=== PATIENT | male | born 1950 | race Caucasian/White ===

== ENCOUNTER 2022-10-17 12:25 | Inpatient (IN) ==
[2022-10-17] MEDS ORDERED: HYDROmorphone INJ 1 MG/ML SYRINGE IV STA (13:09)
[2022-10-17] MEDS ORDERED: KETOROLAC TROMETHAMINE 15 MG/ML VIAL IV STA (13:09)
[2022-10-17] MEDS ORDERED: ONDANSETRON INJ 2 MG/ML 2 ML VIAL IV STA (13:09)
--- NOTE | 2022-10-17 13:12 | Emergency Department Note ---
Impression & Plan Intractable low back pain, Acute right lumbar radiculopathy ED Provider Note CHIEF COMPLAINT: Uncontrolled right-sided low back pain radiating into the right leg x1 week HISTORY OF PRESENT ILLNESS: Patient is a 71-year-old male with past medical history significant for diabetes, dyslipidemia, hypertension, gout, who presents emergency department for the fourth ED visit in 6 days for intractable radicular back pain. Patient states that he he was doing some heavy lifting the weekend after Thanksgiving, which caused his back pain. He was seen in the ED on 10/12, treated with IM Decadron, Toradol and a topical lidocaine patch. No imaging was performed. He was placed on a course of prednisone. He has been using Tylenol and ibuprofen. He came back on 10/14 with persistent symptoms. He was treated with IM narcotics. A CT scan was performed which noted degenerative disc disease at the L4-L5 level which may be contributing to some impingement on the right L4 nerve root. He was discharged with oxycodone. He was back again yesterday, 10/16 with progressively worsening symptoms. He has not improved with Tylenol, ibuprofen, naproxen, prednisone and oxycodone. He is now having to use a walker/cane for ambulation and can barely get around using those. Practitioner tried to get an MRI yesterday but was unable to due to the weekend, and gave the prescription for Valium. Patient was given appointment with Dr. Sequeira with spine surgery but not until 10/26. He is unable to get around at home at all now. He cannot get comfortable in any position. He is able to stand to void. He has not been incontinent of his urine. He has not had a bowel movement in over a week secondary to all of the medications he is taking, but there is been no bowel incontinence. He has diabetic neuropathy in his legs, but can definitely feel a difference in the right foot, states it feels mo re numb and tingly compared to the left. The leg is weak. They called the ambulance today when he could not get around at home. He currently rates his discomfort a 10/10. REVIEW OF SYSTEMS: Review of systems as per HPI. All other systems reviewed were negative. 10 systems reviewed. PMH: Electronic medical records are reviewed and summarized as above/below. See Problem List. SOCIAL HISTORY: Patient lives at home with his spouse. Retired. PHYSICAL EXAM: Vital Signs: Reviewed Nurse's notes. CONSTITUTIONAL: Patient is an uncomfortable appearing 71-year-old male who is awake and alert and sitting upright on the edge of the gurney. is at the bedside. There is significant discomfort with position changes. CARDIOVASCULAR: Regular rate and rhythm. Peripheral pulses easily palpable. RESPIRATORY: Breath sounds equal and clear to auscultation. ABDOMEN: Bowel sounds are present. Abdomen is soft, nontender and nondistended. INTEGUMENTARY: No lesions or rash, normal skin turgor. LYMPH: No lymphadenopathy. SPINE: Examination of the patient's back does not demonstrate any ecchymosis, abrasions or outward signs of trauma. No erythema, increased warmth or induration. Patient has midline discomfort to palpation over the low lumbar spine, primarily on the right. There is no pain over the SI joint or the sciatic notch. He has increased pain with range of motion including rotation and flexion. EXTREMITIES: Leg lengths are symmetrical. Negative logroll bilaterally. He has weakness with hip flexion, knee flexion extension and ankle dorsiflexion and plantarflexion on the right when compared to the left. Right patellar reflex is 1+ compared to 2+ on the left. Distal pulses are easily palpable. Sensation light touch is intact over the lower extremities bilaterally. EMERGENCY DEPARTMENT COURSE: The patient was seen and assessed as above. Old records are reviewed. He presents the emergency department for evaluation of intractable back pain and inability to ambulate. Its been going for him for a week. This is his fourth ED visit. IV lock was initiated. CBC, BMP, urinalysis and COVID swab were collected. He was treated with Toradol, Dilaudid and Zofran and Valium IV. I did order a lumbar spine MRI. Consultation was placed with the [facility] for further care and management. Patient was reassessed when he returned from MRI. He reported he was still having pain, it was primarily from the back to the lateral hip. He was feeling a little bit better, rated his discomfort a 6/10. He was given additional Dilaudid 0.5 mg IV. He is aware that the [facility] service will be coming to admit him. MRI was reviewed. There is discogenic degeneration with spondylitic spurring and facet arthrosis with multilevel neuroforaminal narrowing severe on the right at L4-L5 with some mild central canal stenosis at L3-4. He will be admitted for further work-up and possible surgical evaluation. MEDICAL DECISION MAKING: I do not suspect acute compression syndrome, cauda equina, diskitis, epidural abscess, hematoma or neurovascular compromise. Past Med/Surg History Medical History Diabetes Diabetic polyneuropathy Dyslipidemia Hearing difficulty of both ears Hypertension Sciatica Surgical History [place] teeth removed Family History Mother Diabetes Stroke Sister Diabetes Grandmother (Maternal) Diabetes Father Diabetes Social History Smoking Status: Never smoker Hx Alcohol Use: No Hx Substance Use: No Preferred Language: Armenian Deputy Attorney General Required: No Beliefs That Will Affect Care: None Current Living Situation: Spouse Feels Safe at Home: Yes Allergies Allergies Allergy/AdvReac Type Severity Reaction Status Date / Time No Known Allergies Allergy Unverified 06/25/12 18:00 Home Meds Home Medications Medication Instructions Recorded Confirmed allopurinol 300 mg tablet 300 mg PO DAILY 10/17/22 10/17/22 aspirin 81 mg tablet,delayed 81 mg PO DAILY 10/17/22 10/17/22 release atenolol 50 mg tablet 50 mg PO DAILY 10/17/22 10/17/22 atorvastatin 40 mg tablet 40 mg PO DAILY 10/17/22 10/17/22 empagliflozin 10 mg-linagliptin 5 1 tab PO DAILY 10/17/22 10/17/22 mg tablet (Glyxambi) glipizide 2.5 mg tablet, extended 2.5 mg PO DAILY 10/17/22 10/17/22 release 24 hr losartan 100 mg tablet 100 mg PO DAILY 10/17/22 10/17/22 metformin 1,000 mg tablet 1,000 mg PO BID 10/17/22 10/17/22 nortriptyline 25 mg capsule 25 mg PO HS 10/17/22 10/17/22 pioglitazone 45 mg tablet 45 mg PO DAILY 10/17/22 10/17/22 Previous Rx's Medication Instructions Recorded oxycodone 5 mg tablet 5 mg PO Q4H PRN pain #15 tabs 10/14/22 diazepam 5 mg tablet (Valium) 5 mg PO BID PRN sedation #11 tabs 10/16/22 Results & Data (ED) Vital Signs Vital Signs - 24 hr 10/17/22 12:34 10/17/22 13:30 Temperature 36.9 C Temperature Source Oral Pulse Rate 105 H Respiratory Rate 19 Respiratory Effort / Characteristics Non-Labored Respiratory Depth Normal Blood Pressure 160/103 H Blood Pressure Mean 122 Pulse Oximetry 97 98 Oxygen Delivery Method Room Air Room Air Sepsis Recent Fever Within 48 Hours No Sepsis New/Unexplained Change in Mental Status N/A Sepsis Action Taken by Nursing No Action Required Home Medications Current Medication List: was personally reviewed by me Laboratory Data Attestation: I reviewed the patient's lab results. Result diagrams: 10/17/22 12:57 10/17/22 12:57 Lab Results 10/17/22 10/17/22 10/17/22 Range/Units 12:57 12:57 12:57 WBC 19.27 H (4.8-10.8) K/ul RBC 4.67 (4.63-6.08) M/uL Hgb 14.2 (14.0-18.0) g/dl Hct 43.2 (40.1-51.0) % MCV 92.5 (80.0-100.0) fL MCH 30.4 (25.0-34.0) pg MCHC 32.9 (32.0-36.0) g/dL RDW Std Deviation 47.2 H (36.4-46.3) fL RDW Coeff of Maynor 13.9 (11.5-14.5) % Plt Count 287 (130-400) K/uL MPV 9.1 L (9.4-12.4) fL Immature Gran % (Auto) 0.6 % Neut % (Auto) 77.7 % Lymph % (Auto) 6.2 % [place] % (Auto) 14.8 % Eos % (Auto) 0.5 % Baso % (Auto) 0.2 % Neut # (Auto) 14.96 H (1.4-6.5) K/uL Lymph # (Auto) 1.20 (1.2-3.4) K/uL [place] # (Auto) 2.86 H (0.24-0.82) K/uL Eos # (Auto) 0.10 (0-0.50) K/uL Baso # (Auto) 0.03 (0-0.2) K/uL Immature Gran # (Auto) 0.12 H (0.00-0.02) K/uL Sodium 137 (136-145) mmol/L Potassium 3.5 (3.5-5.1) mmol/L Chloride 101 (98-107) mmol/L Carbon Dioxide 28 (21-32) mmol/L Anion Gap 8 (3-11) BUN 16 (6-23) mg/dl Creatinine 0.82 (0.6-1.4) mg/dl Est Cr Clr Drug Dosing 112.3 ml/min Est GFR ( Amer) 104.6 ml/min Est GFR (Non-Af Amer) 90.2 ml/min BUN/Creatinine Ratio 19.5 (10-20) Glucose 171 H (70-99(Fasting)) mg/dl Calcium 9.2 (8.5-10.1) mg/dl SARS-CoV-2, RNA, NAAT NEGATIVE (NEGATIVE) Administered Medications Acetaminophen (Acetaminophen 500 Mg Tab) 1,000 mg PO Q8 ABDIEL Stop: 11/16/22 15:44 Last Admin: 10/17/22 16:38 Dose: 1,000 mg Documented By: EARL Insulin Aspart (Insulin Aspart Per Unit) 0 units SC [facility] Stop: 11/16/22 16:29 Last Admin: 10/17/22 18:30 Dose: 3 units Documented By: OH Co-signed By: DM Discontinued Medications Diazepam (Diazepam 5 Mg/Ml Inj 10ml Vial) 5 mg IV NOW STA Stop: 10/17/22 13:10 Last Admin: 10/17/22 13:18 Dose: 5 mg Documented By: FLORENCE Hydromorphone HCl (Hydromorphone Inj 1 Mg/Ml Syringe) 1 mg IV NOW STA Stop: 10/17/22 13:10 Last Admin: 10/17/22 13:18 Dose: 1 mg Documented By: FLORENCE Hydromorphone HCl (Hydromorphone Inj 0.5 Mg/0.5 Ml Syr) 0.5 mg IV NOW STA Stop: 10/17/22 14:27 Last Admin: 10/17/22 14:35 Dose: 0.5 mg Documented By: FLORENCE Ketorolac Tromethamine (Ketorolac Tromethamine 15 Mg/Ml Vial) 15 mg IV NOW STA Stop: 10/17/22 13:10 Last Admin: 10/17/22 13:18 Dose: 15 mg Documented By: FLORENCE Ondansetron HCl (Ondansetron Inj 2 Mg/Ml 2 Ml Vial) 4 mg IV NOW STA Stop: 10/17/22 13:10 Last Admin: 10/17/22 13:18 Dose: 4 mg Documented By: FLORENCE Imaging Data Attestation: I personally reviewed and interpreted this imaging study as follows: Radiologist's Impression: Lumbar Spine MRI 10/17/22 13:09 MR lumbar spine wo con CLINICAL HISTORY: 71 years-old Male with RIGHT RADICULAR LOW BACK PAIN X ONE WEE K. Acute on chronic low back pain COMPARISON: CT lumbar spine 10/14/2022 TECHNIQUE: Multiplanar, multi sequence MRI of the lumbar spine was performed without intravenous contrast. FINDINGS: No abdominal aortic aneurysm. The imaged intra-abdominal and paraspinal structures appear unremarkable. No acute fracture, subluxation, endplate erosion or suspicious bony mass lesion identified. Small synovial cysts are noted adjacent to the L4-L5 facets posteriorly. 1.1 cm L1 vertebral body hemangioma. 5 mm anterolisthesis L4 on L5 is likely degenerative. T12-L1: Spondylitic spurring with moderate facet arthrosis. No central canal or neural foraminal stenosis. L1-L2: Mild intervertebral disc space narrowing with spondylitic spurring and small circumferential annular disc bulge. Ligamentum flavum thickening with moderate facet arthrosis. Flattening of the ventral thecal sac results in mild central canal stenosis, AP dimension of the central canal measuring 9 mm. No significant neural foraminal narrowing. L2-L3: Mild to moderate intervertebral disc space narrowing. Spondylitic spurring with small posterior annular disc bulge. Ligamentum flavum thickening with moderate facet arthrosis and trace facet effusions. Flattening of the ventral thecal sac without significant central canal stenosis. Mild bilateral f oraminal narrowing, left greater than right. L3-L4: Mild intervertebral disc space narrowing with spondylitic spurring. Small circumferential annular disc bulge. Ligamentum flavum thickening with moderate facet arthrosis. Mild central canal stenosis, AP dimension of the th ecal sac measuring 9 mm. Mild narrowing of the lateral recesses. Moderate bilateral foraminal stenosis. L4-L5: Grade 1 anterolisthesis, likely degenerative. Posterior annular disc bulge with posterior disc space uncovering. Ligamentum flavum thickening with severe facet arthrosis and facet effusions. Subcentimeter posterior synovial cysts. Flattening of the ventral thecal sac without significant central canal stenosis. Probable right foraminal disc protrusion. There is at least mild narrowing of the lateral recesses. Severe right with moderate to severe left neural foraminal narrowing. L5-S1: Minimal spondylitic spurring with ligamentum thickening and moderate facet arthrosis with subcentimeter posterior synovial cysts. No significant i ntervertebral disc space narrowing. The central canal and neural foramina appear patent. IMPRESSION: 1. No acute fracture or significant bone marrow edema. 2. Discogenic degeneration with spondylitic spurring and facet arthrosis as above. There is multilevel neural foraminal narrowing, severe on the right at L4-L5. 3. Mild central canal stenosis at L3-L4. ACT 112: Negative or not required by law. The above report was generated using voice recognition software. It may contain grammatical, syntax or spelling errors. Electronically signed by: Fran Sanford M.D. 10/17/2022 2:23 PM Discharge Plan Visit Data Chief Complaint: Back Injury/Pain Stated Complaint: BACK PAIN, UNABLE TO AMBULATE ED Provider: Paz [facility] ED Midlevel Provider: Pierce Lanza Discharge Problem: Intractable low back pain, Acute right lumbar radiculopathy Patient Disposition: Admitted As Inpatient Discharge Instructions Interventions: ED Discharge Assessment Last Done: 10/17/22 15:09
[2022-10-17 13:19] LABS: Basophils # (auto) 0.03 K/uL (0-0.2); Basophils % (auto) 0.2 %; Eosinophils % (auto) 0.5 %; Hematocrit (blood only) 43.2 % (40.1-51.0); Hemoglobin 14.2 g/dl (14.0-18.0); Immature Granulocytes # (auto) 0.12 K/uL (0.00-0.02); Immature Granulocytes % (auto) 0.6 %; Lymphocytes % (auto) 6.2 %; Mean Corpuscular Hemoglobin 30.4 pg (25.0-34.0); Mean Corpuscular Hgb Conc 32.9 g/dL (32.0-36.0); Mean Corpuscular Volume 92.5 fL (80.0-100.0); Mean Platelet Volume 9.1 fL (9.4-12.4); Monocytes # (auto) 2.86 K/uL (0.24-0.82); Monocytes % (auto) 14.8 %; Neutrophils # (auto) 14.96 K/uL (1.4-6.5); Neutrophils % (auto) 77.7 %; Platelet Count 287 K/uL (130-400); RDW Coefficient of Variation 13.9 % (11.5-14.5); RDW Standard Deviation 47.2 fL (36.4-46.3); Red Blood Count 4.67 M/uL (4.63-6.08); White Blood Count 19.27 K/ul (4.8-10.8)
[2022-10-17 13:54] LABS: BUN Creatinine Ratio 19.5 (10-20); Calcium 9.2 mg/dl (8.5-10.1); Creatinine Clr Calc Pharmacy 112.3 ml/min; Est GFR (African American) 104.6 ml/min; Est GFR (Non-African American) 90.2 ml/min; Potassium 3.5 mmol/L (3.5-5.1)
--- NOTE | 2022-10-17 14:16 | History & Physical Report ---
Date of Service October 17, 2022 Assessment & Plan (1) Intractable low back pain: Plan: Failed outpatient management with acetaminophen, ibuprofen, lidocaine patche, ice, heat, oxycodone and Valium. Now with inability to complete ADLs or ambulate without severe pain. - Admit for pain control - scheduled acetaminophen, Valium, prn oxycodone - PT/OT consults - Consult ortho spine for additional recommendations - Fall precautions (2) Acute right lumbar radiculopathy: Plan: See plan for #1 (3) Diabetes: Plan: Holding oral agents while admitted. Last A1c in January was 6.3 - Insulin sliding scale and basal insulin while admitted - Diabetic diet - BSG ACHS - Check A1c in AM (4) Hypertension: Plan: - Continue outpatient medications (5) Diabetic polyneuropathy: Plan: - Continue nortriptyline (6) Dyslipidemia: Plan Pt seen and reviewed with collaborating physician, Dr. Cabezas. Plan of care discussed and as outlined above. Code Status: Full code DVT Prophylaxis: SCDs for now Mary Mendenhall PA-C History of Present Illness Chief Complaint: Intractable back pain Primary Care Provider: Beni Reinoso MD This is a 71 y/o male with a PMH of DM2 with associated polyneuropathy, HTN, dyslipidemia, and gout who presented to the ED today for the 4th time in 6 days with worsening right lower back pain with radiation to RLE. Pt has a remote hx of sciatic pain in 1983 when he was in [employer] - admitted and treated with IV Valium with relief. Minimal issues with this since then. Over weekend pt was moving [facility] and home, after which he noted the onset of right lower back pain with radiation to RLE. Seen in the ED on 10/12 for this pain - given course of prednisone for lumbar-sacral radiculopathy. Seen again 10/14/22 for same pain, now interfering with ambulation and ADLs - prescribed oxycodone. CT scan at that visit showed DDD at L4-L5 with possible impingement on L4 nerve root. Seen again 10/16/22 with pain and ambulatory dysfunction - unable to get in for f/u with PCP or with ortho spine. Oxycodone and Motrin helping minimally. Prescribed Valium since that has helped with similar symptoms previously. Returns to the ED today with worsening symptoms, unable to get around at home, even with walker. Outpatient spine surgery evaluation not scheduled until 10/26. Was unable to have MRI done during ED visit yesterday. In the ED today, continued to have 10/10 pain with multiple medications. At present, he just received second dose of Dilaudid - pain still 6-8/10 although seems to improve when he rests/does not try to ambulate. Has also been trying heating pad, ice, and lidocaine patches without relief. No symptoms in left leg. No bowel or bladder incontinence. Pain worse with standing. Difficulty ambulating even with a walker. No numbness or tingling other than chronic neuropathy. Right leg has not given out on him. Also has pain with using right arm to lift himself. Last bowel movement was a week ago - has not taken any laxatives and does not think that he needs them at present. Not eating much due to loss of appetite from pain. Allergies Allergy/AdvReac Type Severity Reaction Status Date / Time No Known Allergies Allergy Unverified 06/25/12 18:00 Home Medications Medication Instructions Recorded Confirmed Type oxycodone 5 mg tablet 5 mg PO Q4H PRN pain #15 tabs 10/14/22 10/17/22 Rx diazepam 5 mg tablet (Valium) 5 mg PO BID PRN sedation #11 tabs 10/16/22 10/17/22 Rx allopurinol 300 mg tablet 300 mg PO DAILY 10/17/22 10/17/22 History aspirin 81 mg tablet,delayed 81 mg PO DAILY 10/17/22 10/17/22 History release atenolol 50 mg tablet 50 mg PO DAILY 10/17/22 10/17/22 History atorvastatin 40 mg tablet 40 mg PO DAILY 10/17/22 10/17/22 History empagliflozin 10 mg-linagliptin 5 1 tab PO DAILY 10/17/22 10/17/22 History mg tablet (Glyxambi) glipizide 2.5 mg tablet, extended 2.5 mg PO DAILY 10/17/22 10/17/22 History release 24 hr losartan 100 mg tablet 100 mg PO DAILY 10/17/22 10/17/22 History metformin 1,000 mg tablet 1,000 mg PO BID 10/17/22 10/17/22 History nortriptyline 25 mg capsule 25 mg PO HS 10/17/22 10/17/22 History pioglitazone 45 mg tablet 45 mg PO DAILY 10/17/22 10/17/22 History Past Med/Surg History Medical History Diabetes Diabetic polyneuropathy Dyslipidemia Hearing difficulty of both ears Hypertension Sciatica Surgical History [place] teeth removed Family History Mother Diabetes Stroke Sister Diabetes Grandmother (Maternal) Diabetes Father Diabetes Social History Smoking Status: Never smoker Hx Alcohol Use: No Hx Substance Use: No Preferred Language: Icelandic [employer] Required: No Beliefs That Will Affect Care: None Current Living Situation: Spouse Feels Safe at Home: Yes Review of Systems Review of Systems: All systems reviewed & are unremarkable except as noted in HPI & below Constitutional: + fatigue; no fever and no chills Eyes: no diplopia Ear, Nose, Mouth, Throat: no nasal congestion, no nasal discharge and no sore throat Respiratory: no cough and no dyspnea Cardiovascular: no chest pain, no palpitations, no syncope and no edema Gastrointestinal: no abdominal pain, no nausea and no vomiting Genitourinary: no dysuria or no urinary incontinence Musculoskeletal: + back pain, + radicular pain and + muscle weakness Integumentary: no yellowing of the skin Neurologic: + loss of sensation (chronic related to neuropathy) and + tingling (chronic neuropathy) Psychiatric: no depression and no anxiety Physical Exam Constitutional: well developed and well nourished; no acute distress and + uncomfortable Eyes: + anicteric sclerae ENMT: external ear and nose normal, oropharynx normal Neck: trachea midline Respiratory: no respiratory distress and no labored breathing Auscultation: lungs clear to auscultation bilaterally; no rales, no rhonchi and no wheezes Cardiovascular: Rate/Rhythm: regular rate and regular rhythm Vessels: posterior tibial pulses present, dorsalis pedis pulses present and radial pulses present Extremities: no pedal edema Gastrointestinal (Abdomen): Inspection/Auscultation: normal bowel sounds; abdomen not distended Percussion/Palpation: abdomen soft Musculoskeletal: decreased strength in right hip flexion and right knee extension - pt reports due to pain. Bilateral knee extension, plantar flexion and dorsiflexion 5/5 and equal. no spinous process tenderness. tenderness of right SI joint and sacral area Skin: no jaundice Neurologic: moves all extremities; not confused 1+ patellar reflex on right, 2+ left patellar and bilateral Achilles reflexes Psychiatric: A+Ox3, euthymic affect Results & Data Results & Data ([facility]) Vital Signs (Past 12 Hours) Vital Signs Temp Pulse Pulse Resp BP BP Pulse Ox 10/17/22 14:07 107 H 20 126/79 96 10/17/22 13:30 98 10/17/22 12:34 36.9 C 105 H 19 160/103 H 97 O2 Del Method 10/17/22 14:07 Room Air 10/17/22 13:30 Room Air 10/17/22 12:34 Room Air Laboratory Results Laboratory Results - last 24 hr 10/17/22 10/17/22 10/17/22 12:57 12:57 12:57 WBC 19.27 H RBC 4.67 Hgb 14.2 Hct 43.2 MCV 92.5 MCH 30.4 MCHC 32.9 RDW Std Deviation 47.2 H RDW Coeff of Maynor 13.9 Plt Count 287 MPV 9.1 L Immature Gran % (Auto) 0.6 Neut % (Auto) 77.7 Lymph % (Auto) 6.2 [place] % (Auto) 14.8 Eos % (Auto) 0.5 Baso % (Auto) 0.2 Neut # (Auto) 14.96 H Lymph # (Auto) 1.20 [place] # (Auto) 2.86 H Eos # (Auto) 0.10 Baso # (Auto) 0.03 Immature Gran # (Auto) 0.12 H Sodium 137 Potassium 3.5 Chloride 101 Carbon Dioxide 28 Anion Gap 8 BUN 16 Creatinine 0.82 Est Cr Clr Drug Dosing 112.3 Est GFR ( Amer) 104.6 Est GFR (Non-Af Amer) 90.2 BUN/Creatinine Ratio 19.5 Glucose 171 H Calcium 9.2 SARS-CoV-2, RNA, NAAT NEGATIVE Diagnostic Findings Lumbar MRI 10/17/22 - IMPRESSION:1. No acute fracture or significant bone marrow edema. 2. Discogenic degeneration with spondylitic spurring and facet arthrosis as above. There is multilevel neural foraminal narrowing, severe on the right at L4-L5. 3. Mild central canal stenosis at L3-L4. Lumbar CT 10/14/22 - IMPRESSION: 1. No acute bony abnormality is seen involving the lumbar spine. 2. Degenerative disc disease at L4-L5 as above. This may impinge on the exiting right L4 nerve root. See discussion. Medications Administered Discontinued Medications Diazepam (Diazepam 5 Mg/Ml Inj 10ml Vial) 5 mg IV NOW STA Stop: 10/17/22 13:10 Last Admin: 10/17/22 13:18 Dose: 5 mg Documented By: FLORENCE Hydromorphone HCl (Hydromorphone Inj 1 Mg/Ml Syringe) 1 mg IV NOW STA Stop: 10/17/22 13:10 Last Admin: 10/17/22 13:18 Dose: 1 mg Documented By: FLORENCE Ketorolac Tromethamine (Ketorolac Tromethamine 15 Mg/Ml Vial) 15 mg IV NOW STA Stop: 10/17/22 13:10 Last Admin: 10/17/22 13:18 Dose: 15 mg Documented By: FLORENCE Ondansetron HCl (Ondansetron Inj 2 Mg/Ml 2 Ml Vial) 4 mg IV NOW STA Stop: 10/17/22 13:10 Last Admin: 10/17/22 13:18 Dose: 4 mg Documented By: FLORENCE Supervising Physician Co-Signing Physician Notes I have seen and examined the patient and have discussed the case with the provider above. I agree with the assessment and plan as stated. 71 yo M with persistent right lower back pain with intermittent sciatic pain that is severe and radiating to the right toe. Difficulty walking or even moving in the past few days despite multiple conservative therapies. Lumbar MRI reveals disc degeneration with facet arthrosis and multilevel neuroforaminal narrowing, severe on the right at the L4-5 nerve root. SLR test is positive on the right. Has some numbness in his feet which is chronic but otherwise knee reflexes are 2+ bilaterally, strength and sensation is intact in lower extremities. He has paraspinal tenderness and increased turgor of the tissues in the right lumbar and gluteal region. Agree with plan to control pain and symptoms and consult ortho spine for recommendations on managing disc disease. Although NSAIDs are helpful will avoid these for possible upcoming procedure. Cont valium for muscle relaxation and PRN dilaudid for breakthrough pain. Scheduled Tylenol ordered. DO Raulito
--- NOTE | 2022-10-17 14:24 | Magnetic Resonance Report ---
MR lumbar spine wo con CLINICAL HISTORY: 71 years-old Male with RIGHT RADICULAR LOW BACK PAIN X ONE WEEK. Acute on chronic low back pain COMPARISON: CT lumbar spine 10/14/2022 TECHNIQUE: Multiplanar, multi sequence MRI of the lumbar spine was performed without intravenous cont rast. FINDINGS: No abdominal aortic aneurysm. The imaged intra-abdominal and paraspinal structures appear unremarkabl e. No acute fracture, subluxation, endplate erosion or suspicious bony mass lesion identified. Small synovial cysts are noted adjacent to the L4-L5 facets posteriorly. 1.1 cm L1 vertebral body hemangiom a. 5 mm anterolisthesis L4 on L5 is likely degenerative. T12-L1: Spondylitic spurring with moderate facet arthrosis. No central canal or neural foraminal derick nosis. L1-L2: Mild intervertebral disc space narrowing with spondylitic spurring and small circumferential annular disc bulge. Ligamentum flavum thickening with moderate facet arthrosis. Flattening of the herve tral thecal sac results in mild central canal stenosis, AP dimension of the central canal measuring 9 mm. No significant neural foraminal narrowing. L2-L3: Mild to moderate intervertebral disc space narrowing. Spondylitic spurring with small posteri or annular disc bulge. Ligamentum flavum thickening with moderate facet arthrosis and trace facet eff usions. Flattening of the ventral thecal sac without significant central canal stenosis. Mild bilater al foraminal narrowing, left greater than right. L3-L4: Mild intervertebral disc space narrowing with spondylitic spurring. Small circumferential claudia ular disc bulge. Ligamentum flavum thickening with moderate facet arthrosis. Mild central canal steno sis, AP dimension of the thecal sac measuring 9 mm. Mild narrowing of the lateral recesses. Moderate bilateral foraminal stenosis. L4-L5: Grade 1 anterolisthesis, likely degenerative. Posterior annular disc bulge with posterior dis c space uncovering. Ligamentum flavum thickening with severe facet arthrosis and facet effusions. Sub centimeter posterior synovial cysts. Flattening of the ventral thecal sac without significant central canal stenosis. Probable right foraminal disc protrusion. There is at least mild narrowing of the la teral recesses. Severe right with moderate to severe left neural foraminal narrowing. L5-S1: Minimal spondylitic spurring with ligamentum thickening and moderate facet arthrosis with sub centimeter posterior synovial cysts. No significant intervertebral disc space narrowing. The central canal and neural foramina appear patent. IMPRESSION: 1. No acute fracture or significant bone marrow edema. 2. Discogenic degeneration with spondylitic spurring and facet arthrosis as above. There is multileve l neural foraminal narrowing, severe on the right at L4-L5. 3. Mild central canal stenosis at L3-L4. ACT 112: Negative or not required by law. The above report was generated using voice recognition software. It may contain grammatical, syntax o r spelling errors. Electronically signed by: Fran Sanford M.D. 10/17/2022 2:23 PM
[2022-10-17] MEDS ORDERED: HYDROmorphone INJ 0.5 MG/0.5 ML SYR IV STA (14:26)
[2022-10-17] MEDS ORDERED: GLUCOSE 40% GEL 15 GM TUBE PO PRN (15:47)
[2022-10-17] MEDS ORDERED: CARBOHYDRATES FOR HYPOGLYCEMIA PO PRN (15:47)
[2022-10-17] MEDS ORDERED: GLUCOSE 10 TAB/TUBE PO PRN (15:47)
[2022-10-17] MEDS ORDERED: GLUCAGON FOR INJ 1 MG VIAL SQ PRN (15:47)
[2022-10-17] MEDS ORDERED: DEXTROSE 50% 50 ML SYRINGE IV PRN (15:47)
[2022-10-17] MEDS: ACETAMINOPHEN 500 MG TAB PO SCH ×2 (16:38→22:12)
[2022-10-17] MEDS: INSULIN ASPART PER UNIT SC SCH ×2 (18:30→21:10)
[2022-10-17 20:07] LABS: Appearance Urine Clear (Clear); Bacteria Urine Automated Negative (Negative); Bilirubin Urine Negative (Negative); Blood Urine Negative (Negative); Color Urine Yellow; Glucose Urine UA 3+ (Negative); Ketones Urine Trace (Negative); Leukocyte Esterase Urine Negative (Negative); Nitrite Urine Negative (Negative); Protein Urine 1+ (Negative); RBC Urine Automated 0-4 /hpf (0-4); Specific Gravity Urine 1.043 (1.000-1.030); Urobilinogen Urine Negative (Negative)
[2022-10-17] MEDS: diazePAM 5 MG TABLET PO SCH (21:08)
[2022-10-17] MEDS: HYDROmorphone INJ 0.5 MG/0.5 ML SYR IV PRN (21:08)
[2022-10-17] MEDS: LANTUS PER UNIT CHARGE SQ SCH (21:09)
[2022-10-17] MEDS: NORTRIPTYLINE HCL 25 MG CAP PO SCH (22:11)
[2022-10-18] MEDS: oxyCODONE HCL IR 5 MG TAB (IMMEDIATE RELEASE) PO PRN ×4 (00:15→18:11)
[2022-10-18] MEDS: ACETAMINOPHEN 500 MG TAB PO SCH ×3 (05:04→21:51)
[2022-10-18] MEDS: HYDROmorphone INJ 0.5 MG/0.5 ML SYR IV PRN ×2 (05:05→11:25)
[2022-10-18 08:10] LABS: Basophils # (auto) 0.04 K/uL (0-0.2); Basophils % (auto) 0.2 %; Eosinophils # (auto) 0.32 K/uL (0-0.50); Hematocrit (blood only) 37.9 % (40.1-51.0); Hemoglobin 12.5 g/dl (14.0-18.0); Immature Granulocytes # (auto) 0.15 K/uL (0.00-0.02); Immature Granulocytes % (auto) 0.9 %; Lymphocytes # (auto) 1.45 K/uL (1.2-3.4); Mean Corpuscular Hemoglobin 30.3 pg (25.0-34.0); Monocytes # (auto) 1.88 K/uL (0.24-0.82); Monocytes % (auto) 11.7 %; Neutrophils # (auto) 12.24 K/uL (1.4-6.5); Neutrophils % (auto) 76.2 %; Platelet Count 215 K/uL (130-400); RDW Coefficient of Variation 13.8 % (11.5-14.5); Red Blood Count 4.12 M/uL (4.63-6.08); White Blood Count 16.08 K/ul (4.8-10.8)
[2022-10-18] MEDS: allopurinoL 300 MG TAB PO SCH (08:27)
[2022-10-18] MEDS: ATENOLOL 50 MG TABLET PO SCH (08:27)
[2022-10-18] MEDS: ATORVASTATIN 40 MG TAB PO SCH (08:27)
[2022-10-18] MEDS: LOSARTAN POTASSIUM 50 MG TAB PO SCH (08:27)
[2022-10-18] MEDS: diazePAM 5 MG TABLET PO SCH ×3 (08:30→21:49)
[2022-10-18 09:04] LABS: BUN Creatinine Ratio 17.8 (10-20); Calcium 8.6 mg/dl (8.5-10.1); Creatinine Clr Calc Pharmacy 125.7 ml/min; Est GFR (African American) 109.7 ml/min; Est GFR (Non-African American) 94.6 ml/min; Potassium 3.7 mmol/L (3.5-5.1)
[2022-10-18] MEDS: INSULIN ASPART PER UNIT SC SCH ×4 (09:07→21:48)
[2022-10-18] MEDS: LANTUS PER UNIT CHARGE SQ SCH ×2 (09:13→21:48)
--- NOTE | 2022-10-18 12:52 | Orthopedic Consultation ---
Date of Consultation October 18, 2022 Assessment & Plan (1) Acute right lumbar radiculopathy: Assessment lumbar spinal stenosis with spondylolisthesis L4-5 and foraminal disc herniation on the right. Plan at this time would like discussion today with the patient review his MRI findings and clinical presentation. He has evidence of a spondylolisthesis L4-5 with marked facet hypertrophy and pre-existing spinal stenosis. On top of this he has a large foraminal disc herniation encroaching the exiting L4 nerve root on the right. This is consistent with his clinical presentation pain patterns. At this time he is trialed medications in significant discomfort. We discussed possible trial of epidural injections. He has declined. He prefer surgical invention. He would be extensive in nature requiring complete facetectomy L4-5 on the right adequately and safely approach the nerve root and disc herniation. He would require fusion at this level to address the instability. Responders was consulted as well in detail. At this time the position will be made n.p.o. after midnight we will hope for surgery tomorrow. History of Present Illness Reason for Consultation: Back and right leg pain Attending Physician: David Manzano MD History of Present Illness This is a 71-year-old male who presents with severe back and right leg pain. This been going on for a week. He denies any specific trauma fall or event. He states his pain radiates into the right buttock posterior thigh into his foot. It is markedly limiting his ability to stand and ambulate. He can only sit in an upright position to obtain any relief. He denies any loss of bowel or bladder control. Does need a walker to ambulate secondary to leg weakness and giving way. Left lower extremities asymptomatic. Is requiring IV narcotics to obtain any relief. Allergies Allergy/AdvReac Type Severity Reaction Status Date / Time No Known Allergies Allergy Unverified 06/25/12 18:00 Home Medications Medication Instructions Recorded Confirmed Type oxycodone 5 mg tablet 5 mg PO Q4H PRN pain #15 tabs 10/14/22 10/17/22 Rx diazepam 5 mg tablet (Valium) 5 mg PO BID PRN sedation #11 tabs 10/16/22 10/17/22 Rx allopurinol 300 mg tablet 300 mg PO DAILY 10/17/22 10/17/22 History aspirin 81 mg tablet,delayed 81 mg PO DAILY 10/17/22 10/17/22 History release atenolol 50 mg tablet 50 mg PO DAILY 10/17/22 10/17/22 History atorvastatin 40 mg tablet 40 mg PO DAILY 10/17/22 10/17/22 History empagliflozin 10 mg-linagliptin 5 1 tab PO DAILY 10/17/22 10/17/22 History mg tablet (Glyxambi) glipizide 2.5 mg tablet, extended 2.5 mg PO DAILY 10/17/22 10/17/22 History release 24 hr losartan 100 mg tablet 100 mg PO DAILY 10/17/22 10/17/22 History metformin 1,000 mg tablet 1,000 mg PO BID 10/17/22 10/17/22 History nortriptyline 25 mg capsule 25 mg PO HS 10/17/22 10/17/22 History pioglitazone 45 mg tablet 45 mg PO DAILY 10/17/22 10/17/22 History Patient History Medical History Diabetes Diabetic polyneuropathy Dyslipidemia Hearing difficulty of both ears Hypertension Sciatica Surgical History Naylor teeth removed Family History Mother Diabetes Stroke Sister Diabetes Grandmother (Maternal) Diabetes Father Diabetes Social History Smoking Status: Never smoker Hx Alcohol Use: No Hx Substance Use: No Preferred Language: Kiswahili Communication Ability: Effective Neon Molder Required: No Beliefs That Will Affect Care: None marital status: Current Living Situation: Spouse How many Children do You have: 1 Feels Safe at Home: Yes Assistive Devices: Cane and Walker Assistive Devices Comment: rollator Physical Exam Physical Exam: On exam he is most comfortable sitting beside the bed. He demonstrates plus 5 out of 5 left dorsiflexion plantarflexion quadriceps on the right he has a 4/5 right dorsiflexion 5/5 plantarflexion quadriceps of breakaway weakness. He has significant tension signs with straight leg raising on the right with negative signs on the left. D10 reflexes absent. He is able to stand and ambulate with his walker but leans on his left leg. Any weightbearing to right lower extremity reproduces severe radiculopathy. He is quite uncomfortable during exam. Results & Data ([facility]) Vital Signs (Past 12 Hours) Vital Signs Temp Pulse Resp BP Pulse Ox O2 Del Method 10/18/22 07:06 36.6 C 86 16 150/67 H 99 Room Air
[2022-10-18] MEDS ORDERED: POLYETHYLENE (MIRALAX) 17 GM PACK PO PRN (14:44)
[2022-10-18] MEDS: DOCUSATE SODIUM 100 MG CAP PO SCH ×2 (15:08→21:49)
--- NOTE | 2022-10-18 17:09 | Hospitalist Progress Note ---
Date of Service October 18, 2022 Assessment & Plan (1) Intractable low back pain: Plan: Acute right lumbar radiculopathy Lumbar spinal stenosis with spondylolisthesis L4-L5 and foraminal disc herniation on the right Ambulatory dysfunction Failed outpatient management --Lumbar MRI:No acute fracture or significant bone marrow edema. Discogenic degeneration with spondylitic spurring and facet arthrosis as above. There is multilevel neural foraminal narrowing, severe on the right at L4-L5. Mild central canal stenosis at L3-L4. -- Appreciate orthopedics input Plan for L4-L5 decompression fusion surgery tomorrow N.p.o. after midnight Pain control Fall precautions PT OT as able Constipation Started on bowel regimen (2) Acute right lumbar radiculopathy: Plan: As above (3) Diabetes: Plan: Holding oral agents Last HbA1C: 6.3 Insulin sliding scale and basal insulin while hospitalized Monitor BGs (4) Hypertension: Plan: - Continue home medications (5) Diabetic polyneuropathy: Plan: - Continue nortriptyline (6) Dyslipidemia: Plan: On statin Plan DVT Px: SCDs for now Code Status: Full code Disposition PT OT prior to discharge Admission and Anticipated Discharge Date Admission Date: October 17, 2022 Subjective Patient is seen and examined at bedside States having Right lower back pain radiating down right lower extremity Back pain worsens with activity Reports constipation Denies any chest pain, dyspnea, dizziness, nausea, abdominal pain Chronic bilateral lower extremity neuropathy which he attributes to diabetes No other complaints Review of Systems Review of Systems: All systems reviewed & are unremarkable except as noted in Subjective Physical Exam Physical Exam: Physical Exam: Vitals signs as noted above General Appearance:Moderately built and nourished, no apparent distress Head: normocephalic, Atraumatic Eyes: normal inspection, EOMI Neck: supple, Trachea midline Respiratory/Chest: Normal breath sounds, CTA, No accessory muscle use Cardiovascular: S1, S2, No murmur Abdomen/GI:Soft, Non tender, Bowel sounds present Back: Left lower back hanger, + straight leg raise test Extremities/Musculoskeletal:normal inspection, no edema Neurologic/Psych:AAOX3, grossly no focal neurological deficits Skin: normal color, warm Results & Data Results & Data ([place]) Vital Signs (Past 12 Hours) Vital Signs Temp Pulse Resp BP BP Pulse Ox O2 Del Method 10/18/22 14:39 36.5 C 83 16 94/55 L 98 Room Air 10/18/22 07:06 36.6 C 86 16 150/67 H 99 Room Air Laboratory Results Short CBC 10/18/22 Range/Units 07:39 WBC 16.08 H (4.8-10.8) K/ul Hgb 12.5 L (14.0-18.0) g/dl Hct 37.9 L (40.1-51.0) % Plt Count 215 (130-400) K/uL BMP 10/18/22 07:39 Sodium 137 Potassium 3.7 Chloride 102 Carbon Dioxide 30 BUN 13 Creatinine 0.73 Glucose 131 H Calcium 8.6 Urine 10/17/22 Range/Units 19:30 Urine Color Yellow Urine Appearance Clear (Clear) Urine pH 5.0 (4.5-7.5) Ur Specific [place] 1.043 H (1.000-1.030) Urine Protein 1+ H (Negative) Urine Glucose (UA) 3+ H (Negative)
[2022-10-18] MEDS: NORTRIPTYLINE HCL 25 MG CAP PO SCH (21:50)
[2022-10-18] MEDS ORDERED: Nursing to Pharmacy Communication SCH (23:45)
[2022-10-19] MEDS: INSULIN ASPART PER UNIT SC SCH ×5 (01:16→21:24)
[2022-10-19] MEDS: oxyCODONE HCL IR 5 MG TAB (IMMEDIATE RELEASE) PO PRN ×4 (01:21→23:23)
[2022-10-19] MEDS: ACETAMINOPHEN 500 MG TAB PO SCH ×3 (06:01→21:24)
[2022-10-19] MEDS: ATENOLOL 50 MG TABLET PO SCH (08:36)
[2022-10-19] MEDS: allopurinoL 300 MG TAB PO SCH (08:36)
[2022-10-19] MEDS: LOSARTAN POTASSIUM 50 MG TAB PO SCH (08:36)
[2022-10-19] MEDS: ATORVASTATIN 40 MG TAB PO SCH (08:36)
[2022-10-19] MEDS: DOCUSATE SODIUM 100 MG CAP PO SCH ×2 (08:40→21:23)
[2022-10-19] MEDS: diazePAM 5 MG TABLET PO SCH ×3 (08:40→21:24)
[2022-10-19] MEDS: LANTUS PER UNIT CHARGE SQ SCH ×2 (09:35→21:23)
[2022-10-19 09:38] LABS: Hematocrit (blood only) 38.6 % (40.1-51.0); Hemoglobin 12.7 g/dl (14.0-18.0); Mean Corpuscular Hemoglobin 30.2 pg (25.0-34.0); Mean Corpuscular Hgb Conc 32.9 g/dL (32.0-36.0); Mean Corpuscular Volume 91.9 fL (80.0-100.0); Mean Platelet Volume 9.3 fL (9.4-12.4); Platelet Count 249 K/uL (130-400); RDW Coefficient of Variation 13.7 % (11.5-14.5); RDW Standard Deviation 46.4 fL (36.4-46.3); White Blood Count 15.29 K/ul (4.8-10.8)
[2022-10-19 10:20] LABS: Anion Gap 6 (3-11); BUN Creatinine Ratio 15.6 (10-20); Blood Urea Nitrogen 12 mg/dl (6-23); Carbon Dioxide 29 mmol/L (21-32); Chloride 102 mmol/L (98-107); Creatinine Clr Calc Pharmacy 119.2 ml/min; Est GFR (African American) 107.3 ml/min; Est GFR (Non-African American) 92.6 ml/min; Glucose 133 mg/dl (70-99(Fasting)); Sodium 137 mmol/L (136-145)
[2022-10-19] MEDS: HYDROmorphone INJ 0.5 MG/0.5 ML SYR IV PRN ×3 (10:52→21:25)
--- NOTE | 2022-10-19 12:07 | Hospitalist Progress Note ---
Date of Service October 19, 2022 Assessment & Plan (1) Intractable low back pain: Plan: Acute right lumbar radiculopathy Lumbar spinal stenosis with spondylolisthesis L4-L5 and foraminal disc herniation on the right Ambulatory dysfunction Failed outpatient management --Lumbar MRI:No acute fracture or significant bone marrow edema. Discogenic degeneration with spondylitic spurring and facet arthrosis as above. There is multilevel neural foraminal narrowing, severe on the right at L4-L5. Mild central canal stenosis at L3-L4. -- Appreciate orthopedics input Plan for L4-L5 decompression fusion surgery 10/19/2022 N.p.o. for hopeful surgery today 10/19/2022 Pain control Fall precautions PT OT as able Constipation Started on bowel regimen (2) Acute right lumbar radiculopathy: Plan: As above (3) Diabetes: Plan: Holding oral agents Last HbA1C: 6.3 Insulin sliding scale and basal insulin while hospitalized Monitor BGs (4) Hypertension: Plan: - Continue home medications (5) Diabetic polyneuropathy: Plan: - Continue nortriptyline (6) Dyslipidemia: Plan: On statin Plan DVT Px: SCDs for now Code Status: Full code Disposition PT OT prior to discharge Admission and Anticipated Discharge Date Admission Date: October 17, 2022 Subjective Patient with DM, HTN, HLD, lumbar spinal stenosis with spondylolisthesis L4-L% and foraminal disc herniation on right admitted for laminectomy and fusion with orthopedic surgery. Patient reports back pain this morning that is unchanged with weakness in right leg as well as significant pain with movement. Denies bowel or bladder incontinence. Denies chest pain, shortness of breath, n/v/d, abdominal pain, dysuria. Review of Systems Review of Systems: All systems reviewed & are unremarkable except as noted in Subjective Physical Exam Physical Exam: General Appearance:Moderately built and nourished, no apparent distress Head: normocephalic, Atraumatic Eyes: normal inspection, EOMI Neck: supple, Trachea midline Respiratory/Chest: Normal breath sounds, CTA, No accessory muscle use Cardiovascular: S1, S2, No murmur Abdomen/GI:Soft, Non tender, Bowel sounds present Back: Left lower storage and backup administrator, + straight leg raise test Extremities/Musculoskeletal:normal inspection, no edema Neurologic/Psych:AAOX3, grossly no focal neurological deficits Skin: normal color, warm Results & Data Results & Data ([place]) Vital Signs (Past 12 Hours) Vital Signs Temp Pulse Resp BP BP Pulse Ox O2 Del Method 10/19/22 08:35 78 143/80 H 98 Room Air 10/19/22 07:29 36.4 C L 78 16 121/70 94 Room Air Diagnostic Findings Laboratory Results WBC 15.29 K/ul (4.8-10.8) H 10/19/22 09:00 RBC 4.20 M/uL (4.63-6.08) L 10/19/22 09:00 Hgb 12.7 g/dl (14.0-18.0) L 10/19/22 09:00 Hct 38.6 % (40.1-51.0) L 10/19/22 09:00 MCV 91.9 fL (80.0-100.0) 10/19/22 09:00 MCH 30.2 pg (25.0-34.0) 10/19/22 09:00 MCHC 32.9 g/dL (32.0-36.0) 10/19/22 09:00 RDW Std Deviation 46.4 fL (36.4-46.3) H 10/19/22 09:00 RDW Coeff of [place]nor 13.7 % (11.5-14.5) 10/19/22 09:00 Plt Count 249 K/uL (130-400) 10/19/22 09:00 MPV 9.3 fL (9.4-12.4) L 10/19/22 09:00 Immature Gran % (Auto) 0.9 % 10/18/22 07:39 Neut % (Auto) 76.2 % 10/18/22 07:39 Lymph % (Auto) 9.0 % 10/18/22 07:39 [place] % (Auto) 11.7 % 10/18/22 07:39 Eos % (Auto) 2.0 % 10/18/22 07:39 Baso % (Auto) 0.2 % 10/18/22 07:39 Neut # (Auto) 12.24 K/uL (1.4-6.5) H 10/18/22 07:39 Lymph # (Auto) 1.45 K/uL (1.2-3.4) 10/18/22 07:39 [place] # (Auto) 1.88 K/uL (0.24-0.82) H 10/18/22 07:39 Eos # (Auto) 0.32 K/uL (0-0.50) 10/18/22 07:39 Baso # (Auto) 0.04 K/uL (0-0.2) 10/18/22 07:39 Immature Gran # (Auto) 0.15 K/uL (0.00-0.02) H 10/18/22 07:39 Sodium 137 mmol/L (136-145) 10/19/22 09:00 Potassium 3.6 mmol/L (3.5-5.1) 10/19/22 10:45 Chloride 102 mmol/L (98-107) 10/19/22 09:00 Carbon Dioxide 29 mmol/L (21-32) 10/19/22 09:00 Anion Gap 6 (3-11) 10/19/22 09:00 BUN 12 mg/dl (6-23) 10/19/22 09:00 Creatinine 0.77 mg/dl (0.6-1.4) 10/19/22 09:00 Est Cr Clr Drug Dosing 119.2 ml/min 10/19/22 09:00 Est GFR ( Amer) 107.3 ml/min 10/19/22 09:00 Est GFR (Non-Af Amer) 92.6 ml/min 10/19/22 09:00 BUN/Creatinine Ratio 15.6 (10-20) 10/19/22 09:00 Glucose 133 mg/dl (70-99(Fasting)) H 10/19/22 09:00 POC Glucose 140 mg/dl (70-99) H 10/19/22 11:55 Calcium 9.0 mg/dl (8.5-10.1) 10/19/22 09:00 Magnesium 2.0 mg/dl (1.7-2.4) 10/19/22 09:00 Urine Color Yellow 10/17/22 19:30 Urine Appearance Clear (Clear) 10/17/22 19:30 Urine pH 5.0 (4.5-7.5) 10/17/22 19:30 Ur Specific [place] 1.043 (1.000-1.030) H 10/17/22 19:30 Urine Protein 1+ (Negative) H 12/05/22 19:30 Urine Glucose (UA) 3+ (Negative) H 10/17/22 19:30 Urine Ketones Trace (Negative) H 10/17/22 19:30 Urine Blood Negative (Negative) 10/17/22 19:30 Urine Nitrite Negative (Negative) 10/17/22 19:30 Urine Bilirubin Negative (Negative) 10/17/22 19:30 Urine Urobilinogen Negative (Negative) 10/17/22 19:30 Ur Leukocyte Esterase Negative (Negative) 10/17/22 19:30 Urine WBC (Auto) 1-5 /hpf (0-5) 10/17/22 19:30 Urine RBC (Auto) 0-4 /hpf (0-4) 10/17/22 19:30 U Hyaline Cast (Auto) 1-5 /lpf (0-5) 10/17/22 19:30 U Epithel Cells (Auto) 5-10 /lpf (0-5) H 10/17/22 19:30 Urine Bacteria (Auto) Negative (Negative) 10/17/22 19:30 SARS-CoV-2, RNA, NAAT NEGATIVE (NEGATIVE) 10/17/22 12:57 Blood Type O Negative 10/19/22 09:00 Antibody Screen NEGATIVE 10/19/22 09:00 Impressions Lumbar Spine MRI 10/17/22 13:09 MR lumbar spine wo con CLINICAL HISTORY: 71 years-old Male with RIGHT RADICULAR LOW BACK PAIN X ONE WEEK. Acute on chronic low back pain COMPARISON: CT lumbar spine 10/14/2022 TECHNIQUE: Multiplanar, multi sequence MRI of the lumbar spine was performed without intravenous contrast. FINDINGS: No abdominal aortic aneurysm. The imaged intra-abdominal and paraspinal structures appear unremarkable. No acute fracture, subluxation, endplate erosion or suspicious bony mass lesion identified. Small synovial cysts are noted adjacent to the L4-L5 facets posteriorly. 1.1 cm L1 vertebral body hemangioma. 5 mm anterolisthesis L4 on L5 is likely degenerative. T12-L1: Spondylitic spurring with moderate facet arthrosis. No central canal or neural foraminal stenosis. L1-L2: Mild intervertebral disc space narrowing with spondylitic spurring and small circumferential annular disc bulge. Ligamentum flavum thickening with moderate facet arthrosis. Flattening of the ventral thecal sac results in mild central canal stenosis, AP dimension of the central canal measuring 9 mm. No significant neural foraminal narrowing. L2-L3: Mild to moderate intervertebral disc space narrowing. Spondylitic spurring with small posterior annular disc bulge. Ligamentum flavum thickening with moderate facet arthrosis and trace facet effusions. Flattening of the ventral thecal sac without significant central canal stenosis. Mild bilateral foraminal narrowing, left greater than right. L3-L4: Mild intervertebral disc space narrowing with spondylitic spurring. Small circumferential annular disc bulge. Ligamentum flavum thickening with moderate facet arthrosis. Mild central canal stenosis, AP dimension of the thecal sac measuring 9 mm. Mild narrowing of the lateral recesses. Moderate bilateral foraminal stenosis. L4-L5: Grade 1 anterolisthesis, likely degenerative. Posterior annular disc bulge with posterior disc space uncovering. Ligamentum flavum thickening with severe facet arthrosis and facet effusions. Subcentimeter posterior synovial cysts. Flattening of the ventral thecal sac without significant central canal stenosis. Probable right foraminal disc protrusion. There is at least mild narrowing of the lateral recesses. Severe right with moderate to severe left neural foraminal narrowing. L5-S1: Minimal spondylitic spurring with ligamentum thickening and moderate facet arthrosis with subcentimeter posterior synovial cysts. No significant i ntervertebral disc space narrowing. The central canal and neural foramina appear patent. IMPRESSION: 1. No acute fracture or significant bone marrow edema. 2. Discogenic degeneration with spondylitic spurring and facet arthrosis as above. There is multilevel neural foraminal narrowing, severe on the right at L4-L5. 3. Mild central canal stenosis at L3-L4. ACT 112: Negative or not required by law. The above report was generated using voice recognition software. It may contain grammatical, syntax or spelling errors. Electronically signed by: Fran Sanford M.D. 10/17/2022 2:23 PM Medications Administered Current Inpatient Medications Acetaminophen (Acetaminophen 500 Mg Tab) 1,000 mg PO Q8 [facility] Stop: 11/16/22 15:44 Last Admin: 10/19/22 06:01 Dose: 1,000 mg Allopurinol (Allopurinol 300 Mg Tab) 300 mg PO DAILY [facility] Stop: 11/17/22 08:59 Last Admin: 10/19/22 08:36 Dose: 300 mg Atenolol (Atenolol 50 Mg Tablet) 50 mg PO DAILY [facility] Stop: 11/17/22 08:59 Last Admin: 10/19/22 08:36 Dose: 50 mg Atorvastatin Calcium (Atorvastatin 40 Mg Tab) 40 mg PO DAILY [facility] Stop: 11/17/22 08:59 Last Admin: 10/19/22 08:36 Dose: 40 mg Dextrose (Dextrose 50% 50 Ml Syringe) 25 - 50 ml IV UD PRN; Protocol PRN Reason: Hypoglycemia Protocol Stop: 11/16/22 15:46 Diazepam (Diazepam 5 Mg Tablet) 5 mg PO TID [facility] Stop: 11/16/22 20:59 Last Admin: 10/19/22 08:40 Dose: 5 mg Docusate Sodium (Docusate Sodium 100 Mg Cap) 100 mg PO BID [facility] Stop: 11/17/22 14:44 Last Admin: 10/19/22 08:40 Dose: 100 mg Glucagon (Glucagon For Inj 1 Mg Vial) 1 mg SQ UD PRN; Protocol PRN Reason: Hypoglycemia Protocol Stop: 11/16/22 15:46 Glucose (Glucose 40% Gel 15 Gm Tube) 15 - 30 gm PO UD PRN; Protocol PRN Reason: Hypoglycemia Protocol Stop: 11/16/22 15:46 Glucose (Glucose 10 Tab/Tube) 4 - 8 tab PO UD PRN; Protocol PRN Reason: Hypoglycemia Treatment Stop: 11/16/22 15:46 Hydromorphone HCl (Hydromorphone Inj 0.5 Mg/0.5 Ml Syr) 0.5 mg IV Q4H PRN PRN Reason: severe pain (7-10) Stop: 10/31/22 15:45 Last Admin: 10/19/22 10:52 Dose: 0.5 mg Insulin Aspart (Insulin Aspart Per Unit) 0 units SC Q6 [facility] Stop: 11/18/22 00:00 Last Admin: 10/19/22 12:00 Dose: Not Given Insulin Glargine (Lantus Per Unit Charge) 15 units SQ BID [facility] Stop: 11/16/22 20:59 Last Admin: 10/19/22 09:35 Dose: Not Given Losartan Potassium (Losartan Potassium 50 Mg Tab) 100 mg PO DAILY [facility] Stop: 11/17/22 08:59 Last Admin: 10/19/22 08:36 Dose: 100 mg Miscellaneous (Carbohydrates For Hypoglycemia ) 15 - 30 gm PO UD PRN PRN Reason: Hypoglycemia Protocol Stop: 11/16/22 15:46 Nortriptyline HCl (Nortriptyline Hcl 25 Mg Cap) 25 mg PO HS [facility] Stop: 11/16/22 20:59 Last Admin: 10/18/22 21:50 Dose: 25 mg Oxycodone HCl (Oxycodone Hcl Ir 5 Mg Tab (Immediate Release)) 5 - 10 mg PO QID PRN PRN Reason: Pain Stop: 11/01/22 00:00 Last Admin: 10/19/22 07:52 Dose: 10 mg Polyethylene Glycol (Polyethylene (Miralax) 17 Gm Pack) 17 gm PO DAILY PRN PRN Reason: Constipation Stop: 11/17/22 14:43
--- NOTE | 2022-10-19 16:38 | Anesthesiology Consultation ---
Date of Service October 19, 2022 Assessment & Plan (1) Encounter for pre-operative examination: Chart Review Chart Review: Acceptable Risk for Surgery and Patient NOT seen in Pre Admission Testing Consults Requested none History Surgery Operation Date: 10/20/22 10:25 Proposed Procedures p L4-L5 Decompression and Fusion - Anthony Sequeira DO Height/Weight Height: 6 ft 2 in Weight: 109.3 kg Allergies Allergy/AdvReac Type Severity Reaction Status Date / Time No Known Allergies Allergy Unverified 06/25/12 18:00 Medications Home Medications Medication Instructions Recorded Confirmed Last Taken oxycodone 5 mg tablet 5 mg PO Q4H PRN pain #15 tabs 10/14/22 10/17/22 Unknown diazepam 5 mg tablet (Valium) 5 mg PO BID PRN sedation #11 tabs 10/16/22 10/17/22 Unknown allopurinol 300 mg tablet 300 mg PO DAILY 10/17/22 10/17/22 Unknown aspirin 81 mg tablet,delayed 81 mg PO DAILY 10/17/22 10/17/22 Unknown release atenolol 50 mg tablet 50 mg PO DAILY 10/17/22 10/17/22 Unknown atorvastatin 40 mg tablet 40 mg PO DAILY 10/17/22 10/17/22 Unknown empagliflozin 10 mg-linagliptin 5 1 tab PO DAILY 10/17/22 10/17/22 Unknown mg tablet (Glyxambi) glipizide 2.5 mg tablet, extended 2.5 mg PO DAILY 10/17/22 10/17/22 Unknown release 24 hr losartan 100 mg tablet 100 mg PO DAILY 10/17/22 10/17/22 Unknown metformin 1,000 mg tablet 1,000 mg PO BID 10/17/22 10/17/22 Unknown nortriptyline 25 mg capsule 25 mg PO HS 10/17/22 10/17/22 Unknown pioglitazone 45 mg tablet 45 mg PO DAILY 10/17/22 10/17/22 Unknown Active Medications Generic Name Dose Route Start Last Admin Trade Name Freq PRN Reason Stop Dose Admin Acetaminophen 1,000 mg 10/17/22 15:45 10/19/22 14:24 Acetaminophen 500 Mg Tab PO 11/16/22 15:44 1,000 mg Q8 ABDIEL Administration Allopurinol 300 mg 10/18/22 09:00 10/19/22 08:36 Allopurinol 300 Mg Tab PO 11/17/22 08:59 300 mg DAILY ABDIEL Administration Atenolol 50 mg 10/18/22 09:00 10/19/22 08:36 Atenolol 50 Mg Tablet PO 11/17/22 08:59 50 mg DAILY ABDIEL Administration Atorvastatin Calcium 40 mg 10/18/22 09:00 10/19/22 08:36 Atorvastatin 40 Mg Tab PO 11/17/22 08:59 40 mg DAILY ABDIEL Administration Diazepam 5 mg 10/17/22 21:00 10/19/22 14:21 Diazepam 5 Mg Tablet PO 11/16/22 20:59 5 mg TID ABDIEL Administration Docusate Sodium 100 mg 10/18/22 14:45 10/19/22 08:40 Docusate Sodium 100 Mg Cap PO 11/17/22 14:44 100 mg BID ABDIEL Administration Hydromorphone HCl 0.5 mg 10/17/22 15:46 10/19/22 16:35 Hydromorphone Inj 0.5 Mg/0.5 Ml Syr IV 10/31/22 15:45 0.5 mg Q4H PRN Administration severe pain (7-10) Insulin Aspart 0 units 10/19/22 00:00 10/19/22 12:00 Insulin Aspart Per Unit SC 11/18/22 00:00 Not Given Q6 ABDIEL Insulin Glargine 15 units 10/17/22 21:00 10/19/22 09:35 Lantus Per Unit Charge SQ 11/16/22 20:59 Not Given BID ABDIEL Losartan Potassium 100 mg 10/18/22 09:00 10/19/22 08:36 Losartan Potassium 50 Mg Tab PO 11/17/22 08:59 100 mg DAILY ABDIEL Administration Nortriptyline HCl 25 mg 10/17/22 21:00 10/18/22 21:50 Nortriptyline Hcl 25 Mg Cap PO 11/16/22 20:59 25 mg HS ABDIEL Administration Oxycodone HCl 5 - 10 mg 10/18/22 00:01 10/19/22 14:24 Oxycodone Hcl Ir 5 Mg Tab (Immediate Release) PO 11/01/22 00:00 10 mg QID PRN Administration Pain NPO Date Last Intake of Solids: 10/18/22 Time Last Intake of Solids: 19:00 Past Medical History Medical History Diabetes Diabetic polyneuropathy Dyslipidemia Hearing difficulty of both ears Hypertension Sciatica Past Family History Family History Mother Diabetes Stroke Sister Diabetes Grandmother (Maternal) Diabetes Father Diabetes Past Surgical History Surgical History [place] teeth removed Social History Smoking Status: Never smoker Hx Alcohol Use: No Hx Substance Use: No Physical Exam Vital Signs Last Vital Signs Temp 36.6 C 10/19/22 14:42 Pulse 65 10/19/22 14:42 Resp 16 10/19/22 14:42 BP 144/76 H 10/19/22 14:42 Pulse Ox 97 10/19/22 14:42 O2 Del Method 10/19/22 14:42 Testing Laboratory Results 10/19/22 09:00 10/19/22 10:45 Urine Color Yellow 10/17/22 19:30 Urine Appearance Clear (Clear) 10/17/22 19:30 Urine pH 5.0 (4.5-7.5) 10/17/22 19:30 Ur Specific [place] 1.043 (1.000-1.030) H 10/17/22 19:30 Urine Protein 1+ (Negative) H 10/17/22 19:30 Urine Glucose (UA) 3+ (Negative) H 10/17/22 19:30 Urine Ketones Trace (Negative) H 10/17/22 19:30 Urine Nitrite Negative (Negative) 10/17/22 19:30 Ur Leukocyte Esterase Negative (Negative) 10/17/22 19:30 Urine WBC (Auto) 1-5 /hpf (0-5) 10/17/22 19:30 Urine RBC (Auto) 0-4 /hpf (0-4) 10/17/22 19:30 U Hyaline Cast (Auto) 1-5 /lpf (0-5) 10/17/22 19:30 U Epithel Cells (Auto) 5-10 /lpf (0-5) H 10/17/22 19:30 Urine Bacteria (Auto) Negative (Negative) 10/17/22 19:30 Blood Type O Negative 10/19/22 09:00 Antibody Screen NEGATIVE 10/19/22 09:00 10/19/22 10/19/22 11:55 05:54 POC Glucose 140 H 114 H Electrocardiogram Date: 10/19/22 Findings: + NSR @ (03)
[2022-10-19] MEDS ORDERED: Nursing to Pharmacy Communication SCH (17:45)
[2022-10-19] MEDS: NORTRIPTYLINE HCL 25 MG CAP PO SCH (21:25)
[2022-10-20] MEDS: HYDROmorphone INJ 0.5 MG/0.5 ML SYR IV PRN ×2 (03:33→08:23)
[2022-10-20] MEDS: ACETAMINOPHEN 500 MG TAB PO SCH ×2 (05:20→14:54)
[2022-10-20] MEDS: oxyCODONE HCL IR 5 MG TAB (IMMEDIATE RELEASE) PO PRN ×2 (05:21→18:20)
[2022-10-20] MEDS: INSULIN ASPART PER UNIT SC SCH ×4 (08:21→21:22)
[2022-10-20] MEDS: DOCUSATE SODIUM 100 MG CAP PO SCH (08:24)
[2022-10-20] MEDS: ATENOLOL 50 MG TABLET PO SCH (08:24)
[2022-10-20] MEDS: LOSARTAN POTASSIUM 50 MG TAB PO SCH (08:24)
[2022-10-20] MEDS: ATORVASTATIN 40 MG TAB PO SCH (08:24)
[2022-10-20] MEDS: allopurinoL 300 MG TAB PO SCH (08:24)
[2022-10-20] MEDS: diazePAM 5 MG TABLET PO SCH ×3 (08:32→21:21)
[2022-10-20 08:35] LABS: Hematocrit (blood only) 41.4 % (40.1-51.0); Hemoglobin 13.7 g/dl (14.0-18.0); Mean Corpuscular Hemoglobin 30.9 pg (25.0-34.0); Mean Corpuscular Hgb Conc 33.1 g/dL (32.0-36.0); Mean Corpuscular Volume 93.5 fL (80.0-100.0); Mean Platelet Volume 9.4 fL (9.4-12.4); Platelet Count 317 K/uL (130-400); RDW Coefficient of Variation 13.8 % (11.5-14.5); Red Blood Count 4.43 M/uL (4.63-6.08); White Blood Count 16.08 K/ul (4.8-10.8)
[2022-10-20] MEDS ORDERED: MIDAZOLAM HCL 1 MG/ML 2ML VIAL ONE (09:06)
[2022-10-20] MEDS ORDERED: GLYCOPYRROLATE 0.2 MG/ML VIAL ONE (09:06)
[2022-10-20] MEDS ORDERED: NEOSTIGMINE METHYLSULFATE 1 MG/ML 10ML VIAL ONE (09:06)
[2022-10-20] MEDS ORDERED: ONDANSETRON INJ 2 MG/ML 2 ML VIAL ONE (09:06)
[2022-10-20] MEDS ORDERED: PROPOFOL IV EMULSION 10 MG/ML 20 ML VIAL IV ONE (09:06)
[2022-10-20] MEDS ORDERED: fentaNYL citrate 100 MCG/2 ML VIAL ONE (09:07)
[2022-10-20 09:14] LABS: BUN Creatinine Ratio 15.7 (10-20); Calcium 9.5 mg/dl (8.5-10.1); Creatinine Clr Calc Pharmacy 110.5 ml/min; Est GFR (African American) 104.1 ml/min; Est GFR (Non-African American) 89.8 ml/min; Magnesium 1.8 mg/dl (1.7-2.4); Phosphorus 3.2 mg/dl (2.5-4.9); Potassium 3.6 mmol/L (3.5-5.1)
[2022-10-20] MEDS: LANTUS PER UNIT CHARGE SQ SCH ×2 (09:23→21:22)
--- NOTE | 2022-10-20 10:35 | History & Physical Bridge Note ---
Date of Service October 20, 2022 History & Physical Bridge Note I have examined the patient, reviewed the History & Physical and in the interval since the performance of the History & Physical I have noted the following changes of clinical significance: no changes noted Patient has continued severe right leg pain consistent with radiculopathy and subsequently is here for lumbar decompression fusion L4-L5.
[2022-10-20] MEDS ORDERED: ceFAZolin 330 MG/ML 1 GM VIAL ONE (10:52)
[2022-10-20] MEDS ORDERED: BUPIVACAINE/EPINEPHRINE 0.5% MPF 1:200,000 30 ML VIAL ONE (10:52)
[2022-10-20] MEDS ORDERED: ceFAZolin 2,000 MG/15 ML IV PUSH IV ONE (11:00)
[2022-10-20] MEDS ORDERED: ceFAZolin 2000MG 2,000 MG/15 ML SYR IV ONE (11:01)
[2022-10-20] MEDS ORDERED: LIDOCAINE 2% MPF LOCAL 5 ML VIAL INFIL ONE (11:51)
[2022-10-20] MEDS ORDERED: ROCURONIUM BROMIDE 10 MG/ML 5 ML VIAL IV ONE (11:51)
[2022-10-20] MEDS ORDERED: FLOSEAL HEMOSTATIC MATRIX 10ML TOP ONE (11:59)
[2022-10-20] MEDS ORDERED: PHENYLEPHRINE 100MCG/ML 5ML SYR ONE (12:39)
--- NOTE | 2022-10-20 12:56 | Operative Report ---
Post Operative Report Pre & Post Diagnosis Operation Date: 10/20/22 10:25 Pre-Op Diagnosis: Lumbar spinal stenosis with spondylolisthesis L4-L5 with far lateral disc herniation Post-Op Diagnosis: Same I identified the patient and participated in the time-out.: Yes Procedure Operation Date: 10/20/22 10:25 Actual Procedures #1 lumbar decompression with bilateral medial facetectomies and foraminotomies L4-L5 L5-S1. #2 posterior spinal fusion L4-5. #3 placement posterior instrumentation L4-L5. #4 interbody fusion L4-5. #5 placement of Spira 15 x 26 mm cage at L4-5. #6 placement locally harvested morselized autograft in the posterior gutters. #7 placement of I factor combined with V toss in the interbody space and posterior gutters. Surgeon Anthony Sequeira DO Mouthpiece Maker Denise Gomez Estimated Blood Loss 150 Findings Consistent with Post-Op Diagnosis Specimens None Indications This is a 71-year-old male who presents above-mentioned diagnosis after failing since course of nonoperative care is here for surgical invention. Description of Procedure Patient is medically identified informed consent obtained. Patient was then taken to the operative suite underwent patient placed in prone position on the Abundio table atop the Nico frame. All bony prominences well-padded eyes inspected to ensure no external pressure placed upon the. This point lumbar spine was prepped and draped in normal sterile fashion. Sharp dissection with the assistance of Bovie cautery was performed down to and exposing the lamina and transverse processes of L4 and L5. Bilaterally. From caudal to cephalad fashion complete laminectomy of L4 partial laminectomy L3 was performed inclu ding bilateral medial facetectomies and foraminotomies addressing severe facet hypertrophy lateral recess and foraminal stenosis. Also identified a massive extraforaminal disc herniation this was movements entirety. Pedicle screws then placed at L4 and L5 bilaterally with assistance of fluoroscopy and appropriate sized radha placed. By way of a transit foraminal approach on the right a complete discectomy L4-L5 was performed endplates curetted to subcortical bleeding bone and a 15 x 26 mm spiral cage with I factor tapped in position. Rods were then compressed locked in final position bilaterally. The transverse processes of L4-L5 burred to subcortical being bone. I factor model V toss and locally harvested morselized autograft was placed in the posterior gutters. 15 round MILENA inserted. The incision was then closed with 1 Vicryl the fascia 2-0 Vicryl subcutaneously and 4 Monocryl for final skin closure. Steri-Strips dressings placed. Patient awakened taken to PACU in stable condition. Please note spinal provided was utilized at the procedure no changes noted. Lastly Denise Gomez was present at the entire surgery involved the patient positioning complex portions of the surgery and final skin closure. I attest to the content of the Intraoperative Record and any orders documented therein. Any exceptions are noted below.
[2022-10-20] MEDS ORDERED: DEXAMETHASONE SOD INJ 4 MG/ML VIAL ONE (13:19)
--- NOTE | 2022-10-20 13:51 | Anesthesiology Progress Note ---
Date of Service October 20, 2022 Anesthesia Post Procedure Vital Signs Vital Signs: Temp Pulse Pulse Resp BP BP Pulse Ox 10/20/22 13:30 69 13 138/72 99 10/20/22 13:40 73 16 146/77 H 96 10/20/22 13:20 67 6 L 140/93 100 10/20/22 13:10 36.4 C L 70 11 L 146/72 H 99 10/20/22 09:49 36.8 C 66 18 148/70 H 96 10/20/22 07:13 36.4 C L 83 16 173/73 H 98 10/19/22 20:26 36.6 C 71 18 139/76 98 10/19/22 14:42 36.6 C 65 16 144/76 H 97 O2 Del Method O2 Flow Rate 10/20/22 13:30 Oxymask 3 10/20/22 13:40 Nasal Cannula 3 10/20/22 13:20 Oxymask 5 10/20/22 13:10 Oxymask 7 10/20/22 09:49 Room Air 10/20/22 07:13 Room Air 10/19/22 20:26 Room Air 10/19/22 14:42 Room Air Pain Intensity Back: Pain Intensity: 5 Transfer of Care Handoff Completed per policy Notes Mental Status: alert / awake / arousable and participated in evaluation Patient Amnestic to Procedure: Yes Nausea / Vomiting: adequately controlled Pain: adequately controlled Airway Patency, RR, SpO2: stable & adequate BP & HR: stable & adequate Hydration State: stable & adequate Anesthetic Complications: no major complications apparent and Pt Satisfied with anesthetic care
--- NOTE | 2022-10-20 14:04 | Fluoroscopy Report ---
FL lumbar spine 2-3V HISTORY: 71 years-old Male L4-5 DF lumbar spine fusion COMPARISON: MR lumbar spine 10/17/2022 TECHNIQUE: 2 spot fluoroscopic images of the lumbar spine were obtained utilizing 24.7 seconds fluoro scopy time FINDINGS: Posterior interbody radha and screw fusion with discectomy at L4-L5. Grade 1 anterolisthesis is similar to prior. The hardware appears intact. No unexpected opaque foreign bodies are identified. IMPRESSION: Fluoroscopic assistance as above. ACT 112: Negative or not required by law. The above report was generated using voice recognition software. It may contain grammatical, syntax o r spelling errors. Electronically signed by: Fran Sanford M.D. 10/20/2022 2:02 PM
[2022-10-20] MEDS ORDERED: DO NOT ADMINISTER PNEUMOCOCCAL VACCINE PRN (14:14)
[2022-10-20] MEDS ORDERED: PROMETHAZINE HCL 12.5 MG in SODIUM CHLORIDE 0.9% 50 ML IV PRN (14:14)
[2022-10-20] MEDS ORDERED: LORazepam 0.5 MG in SYRINGE 0 ML IV PRN (14:14)
[2022-10-20] MEDS ORDERED: ONDANSETRON INJ 2 MG/ML 2 ML VIAL IV PRN (14:14)
[2022-10-20] MEDS ORDERED: ALUMINUM/MAGNESIUM SUSP 30 ML UDC PO PRN (14:14)
[2022-10-20] MEDS ORDERED: diphenhydrAMINE Capsule 25 MG CAP PO PRN (14:14)
[2022-10-20] MEDS ORDERED: ACETAMINOPHEN 1,000 MG/100 ML VIAL IV PRN (14:14)
[2022-10-20] MEDS ORDERED: DO NOT ADMINISTER FLU VACCINE PRN (14:14)
[2022-10-20] MEDS ORDERED: HYDROmorphone INJ 0.5 MG/0.5 ML SYR IV PRN (14:14)
[2022-10-20] MEDS ORDERED: MAGNESIUM HYDROXIDE SUSP 30 ML UDC PO PRN (14:14)
[2022-10-20] MEDS ORDERED: traMADol HCL 50 MG TABLET PO PRN (14:14)
[2022-10-20] MEDS ORDERED: METOCLOPRAMIDE HCL INJ 5 MG/ML 2 ML VIAL IV PRN (14:14)
[2022-10-20] MEDS ORDERED: bisacodyL 10 MG SUPP PR PRN (14:14)
[2022-10-20] MEDS ORDERED: LORazepam 0.5 MG TAB PO PRN (14:14)
[2022-10-20] MEDS ORDERED: NALOXONE HCL 0.4 MG/1 ML VIAL/CARP IV PRN (14:14)
[2022-10-20] MEDS ORDERED: ACETAMINOPHEN 500 MG TAB PO PRN (14:14)
[2022-10-20] MEDS ORDERED: SOD PHOSPHATE/SOD BIPHOSPHATE ENEMA 132 ML BTL PR PRN (14:14)
[2022-10-20] MEDS ORDERED: hydrOXYzine HCl 25 MG TAB PO PRN (14:14)
[2022-10-20] MEDS ORDERED: FAMOTIDINE 20 MG TAB PO PRN (14:14)
[2022-10-20] MEDS ORDERED: HYDROmorphone INJ 1 MG/ML SYRINGE IV PRN (14:14)
[2022-10-20] MEDS ORDERED: ONDANSETRON 4 MG OD TAB PO PRN (14:14)
[2022-10-20] MEDS: SODIUM CHLORIDE 0.9% 1000ML 1,000 ML IV SCH ×2 (14:58→23:35)
--- NOTE | 2022-10-20 17:25 | Hospitalist Progress Note ---
Date of Service October 20, 2022 Assessment & Plan (1) Acute right lumbar radiculopathy: (2) Intractable low back pain: Plan: S/p spinal surgery Lumbar spinal stenosis with spondylolisthesis L4-L5 and foraminal disc herniation on the right Ambulatory dysfunction Failed outpatient management Lumbar MRI:No acute fracture or significant bone marrow edema. Discogenic degeneration with spondylitic spurring and facet arthrosis as above. There is multilevel neural foraminal narrowing, severe on the right at L4-L5. Mild central canal stenosis at L3-L4. POD#0 s/p L4-L5 decompression fusion surgery Per ortho for pain control, wound care, bowel regimen, anticoagulation and activities Monitor H&H (EBL 150ml, pre-op hgb 13.7) Continue incentive spirometry, PT/OT when appropriate (3) Diabetes: Plan: Holding oral agents Last HbA1C: 6.3 Insulin sliding scale and basal insulin while hospitalized Monitor BGs (4) Hypertension: Plan: - Continue home medications (5) Diabetic polyneuropathy: Plan: - Continue nortriptyline (6) Dyslipidemia: Plan: On statin Dispo: Per primary service Admission and Anticipated Discharge Date Admission Date: October 17, 2022 Supervising Physician Co-Signing Physician Notes Patient seen and examined at bedside. I discussed the above with Natty Contreras PA-C and agree with the above note. Subjective Patient with DM, HTN, HLD, lumbar spinal stenosis with spondylolisthesis L4-L% and foraminal disc herniation on right admitted for laminectomy and fusion with orthopedic surgery. Seen and evaluated after spinal surgery today. Endorsing some surgical site discomfort but no pain or paresthesias in bilateral lower extremities. Pain in legs actually improved postoperatively. No fever, chills, headache, chest pain, shortness of breath, n/v/d, abdominal pain, dysuria. Review of Systems Review of Systems: At least ten systems reviewed and negative except as noted in the HPI. Physical Exam Physical Exam: Gen: WD/WN, NAD, lying in bed, A&Ox3 HEENT: Normocephalic, atraumatic, conjunctivae moist, sclerae anicteric, mucous membranes moist Lung: Clear to Auscultation bilaterally, no wheezes/rales/rhonchi Heart: Regular rate, regular rhythm, no murmurs, rubs, or gallops Abdomen: Soft, NT, ND +BS x 4 Extremities: +Spinal dressing c/d/i. MILENA drain visualized. No edema Skin: Warm, no rash Results & Data Results & Data ([facility]) Vital Signs (Past 12 Hours) Vital Signs Temp Pulse Pulse Resp BP BP Pulse Ox 10/20/22 16:27 36.4 C L 87 16 163/78 H 93 10/20/22 15:09 36.6 C 73 16 144/72 H 100 10/20/22 14:40 36.3 C L 73 16 150/80 H 95 10/20/22 14:16 36.4 C L 71 16 151/78 H 94 10/20/22 14:00 37.2 C 71 12 144/74 H 98 10/20/22 13:30 69 13 138/72 99 10/20/22 13:50 37.2 C 74 9 L 141/78 H 92 10/20/22 13:40 73 16 146/77 H 96 10/20/22 13:20 67 6 L 140/93 100 10/20/22 13:10 36.4 C L 70 11 L 146/72 H 99 10/20/22 09:49 36.8 C 66 18 148/70 H 96 10/20/22 07:13 36.4 C L 83 16 173/73 H 98 O2 Del Method O2 Flow Rate 10/20/22 16:27 Room Air 10/20/22 15:09 Nasal Cannula 4 10/20/22 14:40 Nasal Cannula 4 10/20/22 14:16 Nasal Cannula 2 10/20/22 14:00 Nasal Cannula 2 10/20/22 13:30 Oxymask 3 10/20/22 13:50 Nasal Cannula 2 10/20/22 13:40 Nasal Cannula 3 10/20/22 13:20 Oxymask 5 10/20/22 13:10 Oxymask 7 10/20/22 09:49 Room Air 10/20/22 07:13 Room Air Laboratory Results Short CBC 10/20/22 Range/Units 07:52 WBC 16.08 H (4.8-10.8) K/ul Hgb 13.7 L (14.0-18.0) g/dl Hct 41.4 (40.1-51.0) % Plt Count 317 (130-400) K/uL BMP 10/20/22 07:52 Sodium 138 Potassium 3.6 Chloride 101 Carbon Dioxide 30 BUN 13 Creatinine 0.83 Glucose 117 H Calcium 9.5 Diagnostic Findings Lumbar Spine MRI 10/17/22 13:09 MR lumbar spine wo con CLINICAL HISTORY: 71 years-old Male with RIGHT RADICULAR LOW BACK PAIN X ONE WEEK. Acute on chronic low back pain COMPARISON: CT lumbar spine 10/14/2022 TECHNIQUE: Multiplanar, multi sequence MRI of the lumbar spine was performed without intravenous contrast. FINDINGS: No abdominal aortic aneurysm. The imaged intra-abdominal and paraspinal structures appear unremarkable. No acute fracture, subluxation, endplate erosion or suspicious bony mass lesion identified. Small synovial cysts are noted adjacent to the L4-L5 facets posteriorly. 1.1 cm L1 vertebral body hemangioma. 5 mm anterolisthesis L4 on L5 is likely degenerative. T12-L1: Spondylitic spurring with moderate facet arthrosis. No central canal or neural foraminal stenosis. L1-L2: Mild intervertebral disc space narrowing with spondylitic spurring and small circumferential annular disc bulge. Ligamentum flavum thickening with moderate facet arthrosis. Flattening of the ventral thecal sac results in mild central canal stenosis, AP dimension of the central canal measuring 9 mm. No significant neural foraminal narrowing. L2-L3: Mild to moderate intervertebral disc space narrowing. Spondylitic spurring with small posterior annular disc bulge. Ligamentum flavum thickening with moderate facet arthrosis and trace facet effusions. Flattening of the ventral thecal sac without significant central canal stenosis. Mild bilateral foraminal narrowing, left greater than right. L3-L4: Mild intervertebral disc space narrowing with spondylitic spurring. Small circumferential annular disc bulge. Ligamentum flavum thickening with moderate facet arthrosis. Mild central canal stenosis, AP dimension of the thecal sac measuring 9 mm. Mild narrowing of the lateral recesses. Moderate bilateral foraminal stenosis. L4-L5: Grade 1 anterolisthesis, likely degenerative. Posterior annular disc bulge with posterior disc space uncovering. Ligamentum flavum thickening with severe facet arthrosis and facet effusions. Subcentimeter posterior synovial cysts. Flattening of the ventral thecal sac without significant central canal stenosis. Probable right foraminal disc protrusion. There is at least mild narrowing of the lateral recesses. Severe right with moderate to severe left neural foraminal narrowing. L5-S1: Minimal spondylitic spurring with ligamentum thickening and moderate facet arthrosis with subcentimeter posterior synovial cysts. No significant intervertebral disc space narrowing. The central canal and neural foramina appear patent. IMPRESSION: 1. No acute fracture or significant bone marrow edema. 2. Discogenic degeneration with spondylitic spurring and facet arthrosis as above. There is multilevel neural foraminal narrowing, severe on the right at L4-L5. 3. Mild central canal stenosis at L3-L4. ACT 112: Negative or not required by law. The above report was generated using voice recognition software. It may contain grammatical, syntax or spelling errors. Electronically signed by: Fran Sanford M.D. 10/17/2022 2:23 PM Lumbar Spine X-Ray 10/20/22 10:25 [place] lumbar spine 2-3V HISTORY: 71 years-old Male L4-5 DF lumbar spine fusion COMPARISON: MR lumbar spine 10/17/2022 TECHNIQUE: 2 spot fluoroscopic images of the lumbar spine were obtained utilizing 24.7 seconds fluoroscopy time FINDINGS: Posterior interbody radha and screw fusion with discectomy at L4-L5. Grade 1 anterolisthesis is similar to prior. The hardware appears intact. No unexpected opaque foreign bodies are identified. IMPRESSION: Fluoroscopic assistance as above. ACT 112: Negative or not required by law. The above report was generated using voice recognition software. It may contain grammatical, syntax or spelling errors. Electronically signed by: Fran Sanford M.D. 10/20/2022 2:02 PM
[2022-10-20] MEDS: ceFAZolin 2000MG 2,000 MG/15 ML SYR IV SCH (18:20)
[2022-10-20] MEDS: DOCUSATE SODIUM/SENNA 50/8.6MG TAB PO SCH (21:11)
[2022-10-20] MEDS: NORTRIPTYLINE HCL 25 MG CAP PO SCH (21:13)
--- NOTE | 2022-10-20 21:30 | Electrocardiogram Report ---
Test Reason : Blood Pressure : / mmHG Vent. Rate : 061 BPM Atrial Rate : 061 BPM P-R Int : 178 ms QRS Dur : 102 ms QT Int : 438 ms P-R-T Axes : 022 012 031 degrees QTc Int : 440 ms Normal sinus rhythm Normal ECG When compared with ECG of 26-JUN-2012 07:21, Premature atrial complexes are no longer Present Confirmed by Bill Heart ([id number] on 10/20/2022 9:30:11 PM Referred By: REFERRED SELF Confirmed By:Bill Heart
[2022-10-21] MEDS: oxyCODONE HCL IR 5 MG TAB (IMMEDIATE RELEASE) PO PRN ×2 (02:27→21:16)
[2022-10-21] MEDS: ceFAZolin 2000MG 2,000 MG/15 ML SYR IV SCH (02:29)
[2022-10-21] MEDS: POLYETHYLENE (MIRALAX) 17 GM PACK PO SCH ×4 (05:14→21:18)
[2022-10-21 07:23] LABS: Basophils # (auto) 0.04 K/uL (0-0.2); Basophils % (auto) 0.3 %; Eosinophils # (auto) 0.06 K/uL (0-0.50); Eosinophils % (auto) 0.4 %; Hemoglobin 11.5 g/dl (14.0-18.0); Immature Granulocytes # (auto) 0.18 K/uL (0.00-0.02); Immature Granulocytes % (auto) 1.2 %; Lymphocytes # (auto) 1.09 K/uL (1.2-3.4); Lymphocytes % (auto) 7.1 %; Mean Corpuscular Hemoglobin 30.1 pg (25.0-34.0); Mean Corpuscular Hgb Conc 32.9 g/dL (32.0-36.0); Mean Corpuscular Volume 91.6 fL (80.0-100.0); Mean Platelet Volume 9.2 fL (9.4-12.4); Monocytes # (auto) 2.27 K/uL (0.24-0.82); Monocytes % (auto) 14.7 %; Neutrophils # (auto) 11.79 K/uL (1.4-6.5); Neutrophils % (auto) 76.3 %; Platelet Count 269 K/uL (130-400); RDW Coefficient of Variation 13.4 % (11.5-14.5); RDW Standard Deviation 45.5 fL (36.4-46.3); Red Blood Count 3.82 M/uL (4.63-6.08); White Blood Count 15.43 K/ul (4.8-10.8)
[2022-10-21 07:58] LABS: BUN Creatinine Ratio 14.9 (10-20); Calcium 8.6 mg/dl (8.5-10.1); Est GFR (African American) 109.1 ml/min; Est GFR (Non-African American) 94.1 ml/min; Magnesium 1.7 mg/dl (1.7-2.4); Phosphorus 2.7 mg/dl (2.5-4.9)
[2022-10-21] MEDS: ATENOLOL 50 MG TABLET PO SCH (08:10)
[2022-10-21] MEDS: dexAMETHasone 6 MG in SYRINGE 0 ML IV SCH (08:10)
[2022-10-21] MEDS: allopurinoL 300 MG TAB PO SCH (08:10)
[2022-10-21] MEDS: LOSARTAN POTASSIUM 50 MG TAB PO SCH (08:11)
[2022-10-21] MEDS: ATORVASTATIN 40 MG TAB PO SCH (08:11)
[2022-10-21] MEDS: diazePAM 5 MG TABLET PO SCH ×3 (08:53→21:16)
[2022-10-21] MEDS: LANTUS PER UNIT CHARGE SQ SCH ×2 (09:05→22:06)
[2022-10-21] MEDS: INSULIN ASPART PER UNIT SC SCH ×4 (09:05→22:07)
--- NOTE | 2022-10-21 10:02 | Hospitalist Progress Note ---
Date of Service October 21, 2022 Assessment & Plan (1) Acute right lumbar radiculopathy: (2) Intractable low back pain: Plan: S/p spinal surgery Lumbar spinal stenosis with spondylolisthesis L4-L5 and foraminal disc herniation on the right Ambulatory dysfunction Failed outpatient management Lumbar MRI:No acute fracture or significant bone marrow edema. Discogenic degeneration with spondylitic spurring and facet arthrosis as above. There is multilevel neural foraminal narrowing, severe on the right at L4-L5. Mild central canal stenosis at L3-L4. POD#1 s/p L4-L5 decompression fusion surgery Per ortho for pain control, wound care, bowel regimen, anticoagulation and activities Monitor H&H (EBL 150ml, hgb 11.5 today from pre-op hgb 13.7) WBC 15 point 4K, likely reactive as afebrile and no infectious signs or symptoms. Repeat CBC tomorrow if still admitted Continue incentive spirometry, PT/OT when appropriate (3) Diabetes: Plan: Holding oral agents Last HbA1C: 6.3 Insulin sliding scale and basal insulin while hospitalized Monitor BGs (4) Hypertension: Plan: Continue home medications (5) Diabetic polyneuropathy: Plan: Continue nortriptyline (6) Dyslipidemia: Plan: On statin Dispo: Per primary service Admission and Anticipated Discharge Date Admission Date: October 17, 2022 Supervising Physician Co-Signing Physician Notes Patient seen and examined at bedside. I discussed the above with Natty Contreras PA-C and agree with the above note. Subjective Patient with DM, HTN, HLD, lumbar spinal stenosis with spondylolisthesis L4-L5 and foraminal disc herniation on right admitted for laminectomy and fusion with orthopedic surgery. Post-op s/p spinal surgery on 10/20/22. Continues to have some surgical site discomfort but no pain or paresthesias in bilateral lower extremities. Ambulated to the restroom with walker this morning without difficulty. Urinating without issue and passing flatus. No fever, chills, headache, chest pain, shortness of breath, n/v/d, abdominal pain, dysuria. Physical Exam Physical Exam: Gen: WD/WN, NAD, sitting on side of bed, A&Ox3 HEENT: Normocephalic, atraumatic, conjunctivae moist, sclerae anicteric, mucous membranes moist Lung: Clear to Auscultation bilaterally, no wheezes/rales/rhonchi Heart: Regular rate, regular rhythm, no murmurs, rubs, or gallops Abdomen: Soft, NT, ND +BS x 4 Extremities: +Spinal dressing c/d/i. MILENA drain visualized. No edema Skin: Warm, no rash Results & Data Results & Data ([facility]) Vital Signs (Past 12 Hours) Vital Signs Temp Pulse Resp BP BP Pulse Ox O2 Del Method 10/21/22 07:18 36.5 C 86 16 148/79 H 93 Room Air 10/21/22 02:29 36.6 C 79 18 152/78 H 97 Room Air 10/20/22 22:59 36.5 C 91 H 18 102/61 97 Room Air Laboratory Results Short CBC 10/21/22 Range/Units 06:43 WBC 15.43 H (4.8-10.8) K/ul Hgb 11.5 L (14.0-18.0) g/dl Hct 35.0 L (40.1-51.0) % Plt Count 269 (130-400) K/uL BMP 10/21/22 06:43 Sodium 138 Potassium 4.0 Chloride 103 Carbon Dioxide 29 BUN 11 Creatinine 0.74 Glucose 131 H Calcium 8.6 Diagnostic Findings Lumbar Spine MRI 10/17/22 13:09 MR lumbar spine wo con CLINICAL HISTORY: 71 years-old Male with RIGHT RADICULAR LOW BACK PAIN X ONE WEEK. Acute on chronic low back pain COMPARISON: CT lumbar spine 10/14/2022 TECHNIQUE: Multiplanar, multi sequence MRI of the lumbar spine was performed without intravenous contrast. FINDINGS: No abdominal aortic aneurysm. The imaged intra-abdominal and paraspinal structures appear unremarkable. No acute fracture, subluxation, endplate erosion or suspicious bony mass lesion identified. Small synovial cysts are noted adjacent to the L4-L5 facets posteriorly. 1.1 cm L1 vertebral body hemangioma. 5 mm anterolisthesis L4 on L5 is likely degenerative. T12-L1: Spondylitic spurring with moderate facet arthrosis. No central canal or neural foraminal stenosis. L1-L2: Mild intervertebral disc space narrowing with spondylitic spurring and small circumferential annular disc bulge. Ligamentum flavum thickening with moderate facet arthrosis. Flattening of the ventral thecal sac results in mild central canal stenosis, AP dimension of the central canal measuring 9 mm. No significant neural foraminal narrowing. L2-L3: Mild to moderate intervertebral disc space narrowing. Spondylitic spurring with small posterior annular disc bulge. Ligamentum flavum thickening with moderate facet arthrosis and trace facet effusions. Flattening of the ventral thecal sac without significant central canal stenosis. Mild bilateral foraminal narrowing, left greater than right. L3-L4: Mild intervertebral disc space narrowing with spondylitic spurring. Small circumferential annular disc bulge. Ligamentum flavum thickening with moderate facet arthrosis. Mild central canal stenosis, AP dimension of the thecal sac measuring 9 mm. Mild narrowing of the lateral recesses. Moderate bilateral foraminal stenosis. L4-L5: Grade 1 anterolisthesis, likely degenerative. Posterior annular disc bulge with posterior disc space uncovering. Ligamentum flavum thickening with severe facet arthrosis and facet effusions. Subcentimeter posterior synovial cysts. Flattening of the ventral thecal sac without significant central canal stenosis. Probable right foraminal disc protrusion. There is at least mild narrowing of the lateral recesses. Severe right with moderate to severe left neural foraminal narrowing. L5-S1: Minimal spondylitic spurring with ligamentum thickening and moderate facet arthrosis with subcentimeter posterior synovial cysts. No significant intervertebral disc space narrowing. The central canal and neural foramina appear patent. IMPRESSION: 1. No acute fracture or significant bone marrow edema. 2. Discogenic degeneration with spondylitic spurring and facet arthrosis as above. There is multilevel neural foraminal narrowing, severe on the right at L4-L5. 3. Mild central canal stenosis at L3-L4. ACT 112: Negative or not required by law. The above report was generated using voice recognition software. It may contain grammatical, syntax or spelling errors. Electronically signed by: Fran Sanford M.D. 10/17/2022 2:23 PM Lumbar Spine X-Ray 10/20/22 10:25 FL lumbar spine 2-3V HISTORY: 71 years-old Male L4-5 DF lumbar spine fusion COMPARISON: MR lumbar spine 10/17/2022 TECHNIQUE: 2 spot fluoroscopic images of the lumbar spine were obtained utilizing 24.7 seconds fluoroscopy time FINDINGS: Posterior interbody radha and screw fusion with discectomy at L4-L5. Grade 1 anterolisthesis is similar to prior. The hardware appears intact. No unexpected opaque foreign bodies are identified. IMPRESSION: Fluoroscopic assistance as above. ACT 112: Negative or not required by law. The above report was generated using voice recognition software. It may contain grammatical, syntax or spelling errors. Electronically signed by: Fran Sanford M.D. 10/20/2022 2:02 PM
--- NOTE | 2022-10-21 13:34 | Orthopedic Progress Note ---
Date of Service October 21, 2022 Assessment & Plan (1) Acute right lumbar radiculopathy: Plan: At this time we will continue physical therapy monitor his MILENA output anticipate discharge home this weekend. Admission and Anticipated Discharge Date Admission Date: October 17, 2022 Subjective Back pain is controlled leg symptoms markedly improved Physical Exam Physical Exam: Patient is in the chair at the bedside. Skin strength testing. Appears comfortable. Results & Data ([facility]) Vital Signs (Past 12 Hours) Vital Signs Temp Pulse Resp BP BP Pulse Ox O2 Del Method 10/21/22 11:40 36.6 C 84 16 135/69 98 Room Air 10/21/22 07:18 36.5 C 86 16 148/79 H 93 Room Air 10/21/22 02:29 36.6 C 79 18 152/78 H 97 Room Air
[2022-10-21] MEDS: DOCUSATE SODIUM/SENNA 50/8.6MG TAB PO SCH (21:16)
[2022-10-21] MEDS: NORTRIPTYLINE HCL 25 MG CAP PO SCH (21:16)
[2022-10-22] MEDS: POLYETHYLENE (MIRALAX) 17 GM PACK PO SCH ×2 (06:15→12:38)
[2022-10-22 06:46] LABS: Hematocrit (blood only) 33.9 % (40.1-51.0); Hemoglobin 11.1 g/dl (14.0-18.0); Mean Corpuscular Hemoglobin 30.4 pg (25.0-34.0); Mean Corpuscular Hgb Conc 32.7 g/dL (32.0-36.0); Mean Corpuscular Volume 92.9 fL (80.0-100.0); Mean Platelet Volume 8.8 fL (9.4-12.4); Platelet Count 275 K/uL (130-400); RDW Coefficient of Variation 13.5 % (11.5-14.5); RDW Standard Deviation 46.4 fL (36.4-46.3); Red Blood Count 3.65 M/uL (4.63-6.08); White Blood Count 13.87 K/ul (4.8-10.8)
[2022-10-22] MEDS: allopurinoL 300 MG TAB PO SCH (09:16)
[2022-10-22] MEDS: ATORVASTATIN 40 MG TAB PO SCH (09:16)
[2022-10-22] MEDS: dexAMETHasone 6 MG in SYRINGE 0 ML IV SCH (09:16)
[2022-10-22] MEDS: LOSARTAN POTASSIUM 50 MG TAB PO SCH (09:16)
[2022-10-22] MEDS: ATENOLOL 50 MG TABLET PO SCH (09:16)
[2022-10-22] MEDS: diazePAM 5 MG TABLET PO SCH ×2 (09:18→14:31)
[2022-10-22] MEDS: INSULIN ASPART PER UNIT SC SCH ×2 (09:24→13:12)
[2022-10-22] MEDS: LANTUS PER UNIT CHARGE SQ SCH (09:27)
--- NOTE | 2022-10-22 10:27 | Orthopedic Progress Note ---
Date of Service October 22, 2022 Assessment & Plan (1) Acute right lumbar radiculopathy: Plan: At this time we will continue physical therapy monitor his MILENA output. He is cleared for discharge home from an orthopedic standpoint. Admission and Anticipated Discharge Date Admission Date: October 17, 2022 Subjective Back pain is controlled leg symptoms markedly improved. He is tolerating physical therapy and ambulating well. Physical Exam Physical Exam: On exam patient is in the chair at the bedside. Is constricted testing. Appears comfortable. Results & Data ([facility]) Vital Signs (Past 12 Hours) Vital Signs Temp Pulse Resp BP Pulse Ox O2 Del Method 10/22/22 07:56 36.5 C 92 H 16 137/82 96 Room Air
--- NOTE | 2022-10-22 11:13 | Discharge Summary ---
Date of Service October 22, 2022 Admission HPI Per Admitting Provider This is a 71 y/o male with a PMH of DM2 with associated polyneuropathy, HTN, dyslipidemia, and gout who presented to the ED today for the 4th time in 6 days with worsening right lower back pain with radiation to RLE. Pt has a remote hx of sciatic pain in 1983 when he was in [employer] - admitted and treated with IV Valium with relief. Minimal issues with this since then. Over Thanks weekend pt was moving [facility], after which he noted the onset of right lower back pain with radiation to RLE. Seen in the ED on 10/12 for this pain - given course of prednisone for lumbar-sacral radiculopathy. Seen again 10/14/22 for same pain, now interfering with ambulation and ADLs - prescribed oxycodone. CT scan at that visit showed DDD at L4-L5 with possible impingement on L4 nerve root. Seen again 10/16/22 with pain and ambulatory dysfunction - unable to get in for f/u with PCP or with ortho spine. Oxycodone and Motrin helping minimally. Prescribed Valium since that has helped with similar symptoms pr eviously. Returns to the ED today with worsening symptoms, unable to get around at home, even with walker. Outpatient spine surgery evaluation not scheduled until 10/26. Was unable to have MRI done during ED visit yesterday. In the ED today, continued to have 10/10 pain with multiple medications. At present, he just received second dose of Dilaudid - pain still 6-8/10 although seems to improve when he rests/does not try to ambulate. Has also been trying heating pad, ice, and lidocaine patches without relief. No symptoms in left leg. No bowel or bladder incontinence. Pain worse with standing. Difficulty ambulating even with a walker. No numbness or tingling other than chronic neuropathy. Right leg has not given out on him. Also has pain with using right arm to lift himself. Last bowel movement was a week ago - has not taken any laxatives and does not think that he needs them at present. Not eating much due to loss of appetite from pain. Admission Exam Per Admitting Provider Constitutional: well developed and well nourished; no acute distress and + uncomfortable Eyes: + anicteric sclerae ENMT: external ear and nose normal, oropharynx normal Neck: trachea midline Respiratory: no respiratory distress and no labored breathing Auscultation: lungs clear to auscultation bilaterally; no rales, no rhonchi and no wheezes Cardiovascular: Rate/Rhythm: regular rate and regular rhythm Vessels: posterior tibial pulses present, dorsalis pedis pulses present and radial pulses present Extremities: no pedal edema Gastrointestinal (Abdomen): Inspection/Auscultation: normal bowel sounds; abdomen not distended Percussion/Palpation: abdomen soft Musculoskeletal: decreased strength in right hip flexion and right knee extension - pt reports due to pain. Bilateral knee extension, plantar flexion and dorsiflexion 5/5 and equal. no spinous process tenderness. tenderness of right SI joint and sacral area Skin: no jaundice Neurologic: moves all extremities; not confused 1+ patellar reflex on right, 2+ left patellar and bilateral Achilles reflexes Psychiatric: A+Ox3, euthymic affect Principal Diagnosis lumbar stenosis s/p decompression and lumbar fusion Discharge Exam General Appearance:Moderately built and nourished, no apparent distress Head: normocephalic, Atraumatic Eyes: normal inspection, EOMI Neck: supple, Trachea midline Respiratory/Chest: Normal breath sounds, CTA, No accessory muscle use Cardiovascular: S1, S2, No murmur Abdomen/GI:Soft, Non tender, Bowel sounds present Back: dressing c/d/i, MILENA drain with minimal output Extremities/Musculoskeletal:normal inspection, no edema Neurologic/Psych:AAOX3, grossly no focal neurological deficits Skin: normal color, warm Discharge Data Allergies Allergy/AdvReac Type Severity Reaction Status Date / Time No Known Allergies Allergy Unverified 06/25/12 18:00 Consultations 10/17/22 13:48 ED Decision to Admit Stat 10/17/22 15:28 Consult Orthopedic Surgery Routine Procedures Performed Operation Date: 10/20/22 10:25 Actual Procedures p L4-L5 Decompression and Fusion(Not Applicable) - Anthony Sequeira DO Ordered Studies 10/17/22 13:09 MRI Lumbar Spine [MR lumbar spine wo con] Stat 10/20/22 10:25 FL lumbar spine 2-3V Routine Hospital Course (1) Acute right lumbar radiculopathy: (2) Intractable low back pain: S/p spinal surgery Lumbar spinal stenosis with spondylolisthesis L4-L5 and foraminal disc herniation on the right Ambulatory dysfunction Failed outpatient management Lumbar MRI:No acute fracture or significant bone marrow edema. Discogenic degeneration with spondylitic spurring and facet arthrosis as above. There is multilevel neural foraminal narrowing, severe on the right at L4-L5. Mild central canal stenosis at L3-L4. POD#1 s/p L4-L5 decompression fusion surgery Per ortho for pain control, wound care, bowel regimen, anticoagulation and activities Monitor H&H (EBL 150ml, hgb 11.5 today from pre-op hgb 13.7) Continue incentive spirometry, PT/OT recommends home (3) Diabetes: Holding oral agents Last HbA1C: 6.3 Insulin sliding scale and basal insulin while hospitalized Monitor BGs (4) Hypertension: Continue home medications (5) Diabetic polyneuropathy: Continue nortriptyline (6) Dyslipidemia: On statin Dispo: Per primary service Total Time Total Time Spent Total Time Spent (In Minutes): 25 Total Time Includes: Examination of the Patient, Discharge Planning, Medication Reconciliation and Communication With Other Providers Discharge Plan Discharge Items Patient Disposition: Home - Self-Care Reason For Visit: INTRACTABLE LOW BACK PAIN Discharge Diagnosis: lumbar stenosis with surgery for decompression fusion of lumbar spine Activity: As commented below Activity Comment: as tolerated Non-emergency contact: Primary Care Provider and Surgeon Call non-emergency contact if: you have any medication questions and your symptoms worsen Follow-up/Referrals: Anthony Sequeira DO [Surgeon] - Beni Reinoso MD [Primary Care Provider] - Diet: Carb Consistent or DM2 Addtl Attending Provider Instructions: ACTIVITY RECOMMENDATIONS: SELF CARE INSTRUCTIONS AFTER THORACIC/LUMBAR FUSIONS 1. You may walk to your tolerance. It is good exercise for your legs and back. Expect some back and intermittent leg aches and pains. 2. You may perform "counter-top" level activities (make a sandwich, javier with a project, etc.). 3. No bending or lifting of more than 10 pounds or back twisting of any nature (roll like a log when turning in bed). 4. You may ride in a car for 20-30 minutes at a time. No driving until after your first visit with your doctor. 5. Frequent changes of position and restricting sitting to 30 minutes at a time will help limit the amount of back spasms and stiffness you may experience. 6. You may discontinue the use of ambulatory aids (cane, crutches, etc.) once your strength and confidence allow. 7. You may nuclear criticality safety engineer the shower and let water strike your incision when you arrive home at least once daily. Do not take a tub bath, sit in a hot tub or go into a swimming pool until after your first recheck in the office. SPECIAL CARE INSTRUCTIONS: VERY IMPORTANT TO READ AND REVIEW A. Your surgical incision has been closed with a cosmetic suture under the skin that will dissolve in about 6 weeks. In 14 days, you can use a pair of clean scissors and cut the suture that is left outside of the skin at the ends of your incision. 1. The small skin tapes can be removed 7 days after surgery if they have not fallen off by that point. 2. You may keep the wound open to air as much as possible to promote healing after post-op day number 5 unless told otherwise by your doctor. 3. If you think the wound looks like it is becoming infected (redness or worsening drainage) and/or you are experiencing fever, chill or worsening back pain and muscle spasms, contact the office so that we may evaluate you as soon as possible. B. Complications are uncommon, but please contact us if you have any signs or symptoms of: 1. wound infection (fever higher than 102.5 degrees F, redness, separation of wound, drainage, or increasing pain from the incision) 2. blood clots in legs (pain, swelling, redness and warmth in legs) 3. urinary tract infection (fever higher than 102.5 degrees F, burning upon urination or increased frequency of urination) 4. nerve problems (inability to walk on your toes or heels, numbness, loss of bowel or bladder control) 5. any other symptoms that concern you C. Please call the office at if you have any concerns or questions about your operation or recovery. D. No smoking! Smoking drastically decreases the chance of a solid fusion. E. Do not take any anti-inflammatory medications (Indocin, Advil, Motrin, Aspirin, Naprosyn, etc.) as these may inhibit the chance of a solid fusion. Tylenol is okay to take for pain. MANAGING PAIN AFTER SPINAL SURGERY 1. Narcotic medication is intended for short-term use and will be provided for surgical pain. Surgical pain usually lasts for a period of 4-6 weeks. Narcotic medication includes Percocet, Vicodin, Darvocet, Tylenol #3 or Lortab. 2. Longer-term pain is more appropriately treated with non-narcotic medication such as Tylenol ES. 3. Muscle spasm is not appropriately treated with narcotics. Muscle relaxers such as Soma, Flexeril or Skelaxin can be used along with Tylenol ES. 4. Remember that we all live with some "aches and pains". This is not unusual or uncommon after an injury or as we get older. a. Back pain is expected and may include muscle spasms for 4 to 6 weeks after surgery. The pain should gradually improve. If the pain worsens for no apparent reason, please contact the office. b. Intermittent leg pain may also be experienced and should not be concerned about unless it worsens for no apparent reason. If so, please contact the office. 5. We will provide appropriate medication within the normal guidelines of their prescribed use. We will also be very cautious and aware of potential abuse and extended duration of patients' medication needs. a. Pain medications are for your comfort and to assist with sleep and rest so that the tissue can heal. They are not provided in order to return to normal activity and should not be used through the day. To do so or worsening pain at night can result from ongoing tissue damage and development of tolerance to the prescribed medicine. 6. Please allow 2-3 days to process refills. Prescriptions will not be mailed but must be picked up at the office. FOLLOW UP VISIT: Keep your scheduled follow-up appointment. Any questions, please call the office at . Pending Studies at Discharge: No Stand-Alone Forms: [facility], Smoking Cessation Medications and [place] Order Prescriptions: New sennosides-docusate sodium [Senokot-S] 8.6-50 mg Tablet 2 tab PO HS Qty: 30 0RF Continued oxycodone 5 mg tablet 5 mg PO Q4H PRN (Reason: pain) Qty: 15 0RF atorvastatin 40 mg tablet 40 mg PO DAILY pioglitazone 45 mg tablet 45 mg PO DAILY aspirin 81 mg Tablet,Delayed Release (Dr/Ec) 81 mg PO DAILY glipizide 2.5 mg tablet extended release 24hr 2.5 mg PO DAILY metformin 1,000 mg tablet 1,000 mg PO BID allopurinol 300 mg tablet 300 mg PO DAILY losartan 100 mg tablet 100 mg PO DAILY atenolol 50 mg tablet 50 mg PO DAILY Glyxambi 10-5 mg tablet 1 tab PO DAILY nortriptyline 25 mg Capsule 25 mg PO HS diazepam [Valium] 5 mg tablet 5 mg PO BID PRN (Reason: sedation) Qty: 11 0RF Discharge Orders: Discharge Order (Routine); Ordered 10/22/22 Ordered By: Kamran Quigley Admission Data Admit Date/Time: 10/17/22 13:51 Attending Provider: Kamran Quigley Admit Provider: Alla Cabezas Primary Care Provider: Beni Reinoso Other Providers: Natty Contreras ; Alla Cabezas ; Anthony Sequeira
[2022-10-22] MEDS: oxyCODONE HCL IR 5 MG TAB (IMMEDIATE RELEASE) PO PRN (15:12)
== END 2022-10-22 15:45 | disposition home or self-care (01) | DRG 455 ==
LOC: ED 12:25 → EDINP 13:51 → SUATTDRO 13:51 → 3W 15:09

== ENCOUNTER 2022-11-02 01:07 | Inpatient (IN) ==
[2022-11-02] MEDS ORDERED: SODIUM CHLORIDE 0.9% 500 ML IV STA (01:14)
[2022-11-02 01:32] LABS: Basophils # (auto) 0.05 K/uL (0-0.2); Basophils % (auto) 0.3 %; Eosinophils # (auto) 0.04 K/uL (0-0.50); Eosinophils % (auto) 0.2 %; Hematocrit (blood only) 30.1 % (40.1-51.0); Hemoglobin 9.9 g/dl (14.0-18.0); Immature Granulocytes # (auto) 0.11 K/uL (0.00-0.02); Immature Granulocytes % (auto) 0.6 %; Lymphocytes # (auto) 2.14 K/uL (1.2-3.4); Lymphocytes % (auto) 12.5 %; Mean Corpuscular Hemoglobin 29.9 pg (25.0-34.0); Mean Corpuscular Hgb Conc 32.9 g/dL (32.0-36.0); Mean Corpuscular Volume 90.9 fL (80.0-100.0); Monocytes # (auto) 2.04 K/uL (0.24-0.82); Monocytes % (auto) 11.9 %; Neutrophils # (auto) 12.78 K/uL (1.4-6.5); Neutrophils % (auto) 74.5 %; Platelet Count 418 K/uL (130-400); RDW Coefficient of Variation 13.4 % (11.5-14.5); RDW Standard Deviation 44.5 fL (36.4-46.3); Red Blood Count 3.31 M/uL (4.63-6.08); White Blood Count 17.16 K/ul (4.8-10.8)
[2022-11-02] MEDS ORDERED: SODIUM CHLORIDE 0.9% 1000ML 1,000 ML IV ONE (01:32)
--- NOTE | 2022-11-02 01:32 | Emergency Department Note ---
Impression & Plan Diverticulitis ADMIT ED Provider Note HPI: The patient is a 71-year-old gentleman who presents emergency department chief complaint of dark stools. Patient states over the past 6 hours he has had 3 episodes of fairly large volume bowel movements that appeared black mixed with some streaks of bright red blood. Patient is not noted to be on any anticoagulation. Patient denies any abdominal pain. On arrival here to the ED the patient is noted to be significantly tachycardic at 140 but otherwise blood pressure stable, he is saturating well on room air. Patient is alert and oriented on arrival. ROS: -GI: Blood per rectum *10 point review systems was conducted and is otherwise negative unless stated above *Outpatient medications and allergy history reviewed PE: General: Alert HEENT: Normocephalic, trachea midline Eyes: Extraocular eye movement is intact, no scleral erythema Pulmonary: Clear to auscultation bilaterally, no wheezing Cardio: Tachycardic rate and regular rhythm GI: Abdomen is soft, mild tenderness in the lower abdomen to palpation without guarding or rigidity, rectal examination performed at the bedside shows gross blood in the rectal vault without active bleeding : No suprapubic tenderness MSK: No evidence of trauma or malformation of the extremities, no edema Skin: No evidence of rash Neuro: Alert, no focal deficits Psychiatric: Cooperative computer numeric control setter: - An order was placed for continuous cardiac monitoring - Patient was noted to be in sinus rhythm with a rate of 130 CTA CHEST: No pulmonary embolus identified. Evaluation of the distal pulmonary arterial branches is limited by motion artifact. No aortic dissection. Mild ectasia of the ascending thoracic aorta measuring 4.1 cm in diameter. No acute pulmonary parenchymal abnormality identified. Small hiatal hernia. Cholelithiasis. Small rim calcified splenic artery aneurysm. Trace pericardial fluid. Old right-sided rib fracture deformities. Radiologist: Tima Gamez M.D. CT ABDOMEN & PELVIS With Contrast: Diverticulosis. Large inflamed diverticulum off of the sigmoid colon. This concerning for diverticulitis. Fluid in the colon is suggestive of diarrheal state. No small bowel obstruction. Normal appendix. Evaluation of the stomach is limited by underdistention. Small splenule. Cholelithiasis. Small right renal cyst. Tiny hypodensity in the left kidney is too small to definitively characterize. Nonspecific bilateral perinephric fat stranding. No hydronephrosis or obstructing stone. Small fat-containing bilateral inguinal hernias. Hepatomegaly. Hepatic steatosis. Postsurgical changes at L4-5. Grade 1 anterolisthesis of L4 on L5. EKG: Rate: 139 Rhythm: Sinus tachycardia Intervals: Within normal limits ST changes: No ST elevation Time: 0110 Interventions provided in ED: -IV fluid bolus, packed red blood cell transfusion, IV Protonix Medical Decision Making: Patient presented to the emergency department with several episodes of rectal bleeding this evening. On arrival he is noted to be tachycardic, he is otherwi se alert and in no acute distress. Lab work shows evidence of hemoglobin of 9.9, this has down trended from 11.1 on lab work performed earlier this month, I do suspect this is due to acute blood loss as rectal exam does show evidence of gross blood within the rectal vault. CT imaging of the chest does not show any evidence of PE, obtained secondary to significant tachycardia, also in the setting of recent back surgery. CT imaging of the abdomen pelvis shows diarrheal state and also evidence of diverticulitis. Patient was ordered 2 units packed red blood cells for transfusion given his tachycardia and concern for acute blood loss, he signed consent for transfusion, he was given IV fluid bolus as well blood pressure remained stable throughout his stay, tachycardia did downtrend with IV fluids and blood products. Patient was initiated on IV Zosyn given leukocytosis with finding of diverticulitis on CT imaging. Blood cultures were drawn in the ED. Case was discussed with on-call gastroenterology, Dr. Olivarez, who is in agreement that given the patient's stability he can be scoped this morning by gastroenterology for further assessment for lower GI bleeding. Case was then discussed with the on-call hospitalist for [facility], Dr. Schneider, who accepted the patient for admission. He states he will consult the [facility] gastroenterology team for the patient to be evaluated this morning. On my reassessment the patient appears well, his tachycardia is down trended, his blo od pressure is 121/73, he is in agreement for admission he was admitted in stable condition. * CRITICAL CARE TIME: ( 40 ) minutes -Anemia in the setting of active lower GI bleeding requiring packed red blood cell transfusion for vital sign abnormalities, time spent at the bedside, discussion with other physicians and subspecialty services, arrangement of admission Diagnosis: 1. Lower GI bleed 2. Anemia secondary to acute blood loss 3. Elevated BUN 4. Diverticulitis, acute Disposition: Admission Bipin Fuentes DO Emergency Medicine Past Med/Surg History Medical History Diabetes Diabetic polyneuropathy Dyslipidemia Hearing difficulty of both ears Hypertension Sciatica Surgical History [place] teeth removed Family History Mother Diabetes Stroke Sister Diabetes Grandmother (Maternal) Diabetes Father Diabetes Social History Smoking Status: Former smoker Do You Dip or Chew Tobacco: No; Hx Alcohol Use: No Hx Substance Use: No Preferred Language: Maldivian Communication Ability: Effective Mechanical Car Checker Required: No Beliefs That Will Affect Care: None marital status: Current Living Situation: Spouse How many Children do You have: 1 Feels Safe at Home: Yes Safety Concerns: Feels Safe At This Time Assistive Devices: Glasses, Hearing Aid - Bilateral and Walker Allergies Allergies Allergy/AdvReac Type Severity Reaction Status Date / Time No Known Allergies Allergy Verified 11/02/22 01:35 Home Meds Home Medications Medication Instructions Recorded Confirmed allopurinol 300 mg tablet 300 mg PO DAILY 10/17/22 11/02/22 aspirin 81 mg tablet,delayed 81 mg PO HS 10/17/22 11/02/22 release atenolol 50 mg tablet 50 mg PO DAILY 10/17/22 11/02/22 atorvastatin 40 mg tablet 40 mg PO HS 10/17/22 11/02/22 empagliflozin 10 mg-linagliptin 5 1 tab PO DAILY 10/17/22 11/02/22 mg tablet (Glyxambi) glipizide 2.5 mg tablet, extended 2.5 mg PO DAILY 10/17/22 11/02/22 release 24 hr losartan 100 mg tablet 100 mg PO HS 10/17/22 11/02/22 metformin 1,000 mg tablet 1,000 mg PO BID 10/17/22 11/02/22 nortriptyline 25 mg capsule 25 mg PO HS 10/17/22 11/02/22 pioglitazone 45 mg tablet 45 mg PO DAILY 10/17/22 11/02/22 Previous Rx's Medication Instructions Recorded oxycodone 5 mg tablet 5 mg PO Q4H PRN pain #15 tabs 10/14/22 diazepam 5 mg tablet (Valium) 5 mg PO BID PRN sedation #11 tabs 10/16/22 Results & Data (ED) Vital Signs Vital Signs - 24 hr 11/02/22 01:08 11/02/22 01:21 11/02/22 01:12 Temperature 36.9 C Temperature Source Oral Pulse Rate 138 H 141 H Pulse Rate from SpO2 Sensor Pulse Rhythm Regular Respiratory Rate 22 18 Respiratory Depth Normal Blood Pressure 121/84 121/84 Blood Pressure Mean 96 96 Blood Pressure Position Sitting Pulse Oximetry 100 100 Oxygen Delivery Method Room Air Room Air Sepsis Recent Fever Within 48 Hours No Sepsis New/Unexplained Change in Mental Status N/A Sepsis Action Taken by Nursing No Action Required 11/02/22 01:13 11/02/22 01:30 11/02/22 01:30 Temperature Temperature Source Pulse Rate 136 H 133 H Pulse Rate from SpO2 Sensor 135 H 134 H Pulse Rhythm Respiratory Rate 20 17 Respiratory Depth Blood Pressure 136/88 Blood Pressure Mean 104 Blood Pressure Position Pulse Oximetry 100 100 Oxygen Delivery Method Sepsis Recent Fever Within 48 Hours Sepsis New/Unexplained Change in Mental Status Sepsis Action Taken by Nursing 11/02/22 02:00 11/02/22 02:00 11/02/22 02:30 Temperature Temperature Source Pulse Rate 128 H 127 H Pulse Rate from SpO2 Sensor Pulse Rhythm Respiratory Rate 20 16 Respiratory Depth Blood Pressure 108/68 102/67 Blood Pressure Mean 81 78 Blood Pressure Position Pulse Oximetry 100 Oxygen Delivery Method Room Air Sepsis Recent Fever Within 48 Hours Sepsis New/Unexplained Change in Mental Status Sepsis Action Taken by Nursing 11/02/22 03:37 11/02/22 04:00 11/02/22 04:15 Temperature 37.5 C 37.4 C 37.5 C Temperature Source Oral Oral Oral Pulse Rate 123 H 120 H 119 H Pulse Rate from SpO2 Sensor Pulse Rhythm Respiratory Rate 18 16 16 Respiratory Depth Blood Pressure 107/74 111/69 113/65 Blood Pressure Mean 85 83 81 Blood Pressure Position Lying Lying Lying Pulse Oximetry 100 99 99 Oxygen Delivery Method Sepsis Recent Fever Within 48 Hours Sepsis New/Unexplained Change in Mental Status Sepsis Action Taken by Nursing 11/02/22 04:45 Temperature 37.5 C Temperature Source Oral Pulse Rate 120 H Pulse Rate from SpO2 Sensor Pulse Rhythm Respiratory Rate 18 Respiratory Depth Blood Pressure 121/73 Blood Pressure Mean 89 Blood Pressure Position Lying Pulse Oximetry 97 Oxygen Delivery Method Sepsis Recent Fever Within 48 Hours Sepsis New/Unexplained Change in Mental Status Sepsis Action Taken by Nursing Laboratory Data Result diagrams: 11/02/22 01:25 11/02/22 01:25 Lab Results 11/02/22 11/02/22 11/02/22 Range/Units 01:25 01:25 01:45 WBC 17.16 H (4.8-10.8) K/ul RBC 3.31 L (4.63-6.08) M/uL Hgb 9.9 L (14.0-18.0) g/dl Hct 30.1 L (40.1-51.0) % MCV 90.9 (80.0-100.0) fL MCH 29.9 (25.0-34.0) pg MCHC 32.9 (32.0-36.0) g/dL RDW Std Deviation 44.5 (36.4-46.3) fL RDW Coeff of Maynor 13.4 (11.5-14.5) % Plt Count 418 H (130-400) K/uL MPV 9.0 L (9.4-12.4) fL Immature Gran % (Auto) 0.6 % Neut % (Auto) 74.5 % Lymph % (Auto) 12.5 % [place] % (Auto) 11.9 % Eos % (Auto) 0.2 % Baso % (Auto) 0.3 % Neut # (Auto) 12.78 H (1.4-6.5) K/uL Lymph # (Auto) 2.14 (1.2-3.4) K/uL [place] # (Auto) 2.04 H (0.24-0.82) K/uL Eos # (Auto) 0.04 (0-0.50) K/uL Baso # (Auto) 0.05 (0-0.2) K/uL Immature Gran # (Auto) 0.11 H (0.00-0.02) K/uL Sodium 138 (136-145) mmol/L Potassium 4.4 (3.5-5.1) mmol/L Chloride 104 (98-107) mmol/L Carbon Dioxide 20 L (21-32) mmol/L Anion Gap 14 H (3-11) BUN 29 H (6-23) mg/dl Creatinine 0.94 (0.6-1.4) mg/dl Est Cr Clr Drug Dosing 92.7 ml/min Est GFR ( Amer) 95.5 ml/min Est GFR (Non-Af Amer) 82.4 ml/min BUN/Creatinine Ratio 30.9 H (10-20) Glucose 255 H (70-99(Fasting)) mg/dl Calcium 8.9 (8.5-10.1) mg/dl Total Bilirubin 0.5 (0.2-1.0) mg/dl AST 14 (13-39) U/L ALT 20 (7-52) U/L Alkaline Phosphatase 60 (34-104) U/L Troponin I High Sens 16.7 (0-20) pg/ml Total Protein 6.7 (6.0-8.3) gm/dl Albumin 3.4 (3.4-5.0) gm/dl Globulin 3.3 (2.5-4.0) gm/dl Albumin/Globulin Ratio 1.0 (0.9-2) Lipase 39 (11-82) U/L SARS-CoV-2 (PCR) (Negative) Influenza Type A (PCR) (Neg) Influenza Type B (PCR) (Neg) RSV (RT-PCR) (Neg) Blood Type O Negative Antibody Screen NEGATIVE Crossmatch See Detail 11/02/22 Range/Units 02:26 WBC (4.8-10.8) K/ul RBC (4.63-6.08) M/uL Hgb (14.0-18.0) g/dl Hct (40.1-51.0) % MCV (80.0-100.0) fL MCH (25.0-34.0) pg MCHC (32.0-36.0) g/dL RDW Std Deviation (36.4-46.3) fL RDW Coeff of Maynor (11.5-14.5) % Plt Count (130-400) K/uL MPV (9.4-12.4) fL Immature Gran % (Auto) % Neut % (Auto) % Lymph % (Auto) % [place] % (Auto) % Eos % (Auto) % Baso % (Auto) % Neut # (Auto) (1.4-6.5) K/uL Lymph # (Auto) (1.2-3.4) K/uL [place] # (Auto) (0.24-0.82) K/uL Eos # (Auto) (0-0.50) K/uL Baso # (Auto) (0-0.2) K/uL Immature Gran # (Auto) (0.00-0.02) K/uL Sodium (136-145) mmol/L Potassium (3.5-5.1) mmol/L Chloride (98-107) mmol/L Carbon Dioxide (21-32) mmol/L Anion Gap (3-11) BUN (6-23) mg/dl Creatinine (0.6-1.4) mg/dl Est Cr Clr Drug Dosing ml/min Est GFR ( Amer) ml/min Est GFR (Non-Af Amer) ml/min BUN/Creatinine Ratio (10-20) Glucose (70-99(Fasting)) mg/dl Calcium (8.5-10.1) mg/dl Total Bilirubin (0.2-1.0) mg/dl AST (13-39) U/L ALT (7-52) U/L Alkaline Phosphatase (34-104) U/L Troponin I High Sens (0-20) pg/ml Total Protein (6.0-8.3) gm/dl Albumin (3.4-5.0) gm/dl Globulin (2.5-4.0) gm/dl Albumin/Globulin Ratio (0.9-2) Lipase (11-82) U/L SARS-CoV-2 (PCR) NEGATIVE (Negative) Influenza Type A (PCR) Negative (Neg) Influenza Type B (PCR) Negative (Neg) RSV (RT-PCR) Negative (Neg) Blood Type Antibody Screen Crossmatch Administered Medications Discontinued Medications Sodium Chloride (Nss) 500 mls @ 999 mls/hr IV .Q31M STA Stop: 11/02/22 01:44 Last Infusion: 11/02/22 02:03 Dose: 0 mls/hr Documented By: Admin: 11/02/22 01:21 Dose: 999 mls/hr Documented By: SERAFIN Sodium Chloride (Nss 1000ml) 1,000 mls @ 999 mls/hr IV .Q1H1M ONE Stop: 11/02/22 02:32 Last Infusion: 11/02/22 03:06 Dose: 0 mls/hr Documented By: Admin: 11/02/22 02:05 Dose: 999 mls/hr Documented By: SERAFIN Pantoprazole Sodium 80 mg/ (Dextrose) 100 mls @ 400 mls/hr IV ONE STA Stop: 11/02/22 02:33 Last Infusion: 11/02/22 04:02 Dose: 0 mls/hr Documented By: Admin: 11/02/22 03:47 Dose: 400 mls/hr Documented By: ALVERTO Piperacillin Sod/Tazobactam Sod (Zosyn) 4.5 gm in 120 mls @ 240 mls/hr IV NOW ONE Stop: 11/02/22 04:49 Last Admin: 11/02/22 05:26 Dose: 240 mls/hr Documented By: ALVERTO Ioversol (Optiray 320 500ml) 125 ml IV ONCE ONE Stop: 11/02/22 03:10 Last Admin: 11/02/22 03:10 Dose: 116 ml Documented By: PEGGY Discharge Plan Visit Data Chief Complaint: Cardiac Assessment Stated Complaint: Tachycardia, Illness, Anxiety ED Provider: Bipin Fuentes Discharge Problem: Diverticulitis Forms Stand Alone Forms: [facility] [employer] Prescriptions Prescriptions: No Action oxycodone 5 mg tablet 5 mg PO Q4H PRN (Reason: pain) Qty: 15 0RF atorvastatin 40 mg tablet 40 mg PO HS pioglitazone 45 mg tablet 45 mg PO DAILY aspirin 81 mg Tablet,Delayed Release (Dr/Ec) 81 mg PO HS glipizide 2.5 mg tablet extended release 24hr 2.5 mg PO DAILY metformin 1,000 mg tablet 1,000 mg PO BID allopurinol 300 mg tablet 300 mg PO DAILY losartan 100 mg tablet 100 mg PO HS atenolol 50 mg tablet 50 mg PO DAILY Glyxambi 10-5 mg tablet 1 tab PO DAILY nortriptyline 25 mg Capsule 25 mg PO HS diazepam [Valium] 5 mg tablet 5 mg PO BID PRN (Reason: sedation) Qty: 11 0RF Referrals Referrals: Beni Reinoso MD [Primary Care Provider] -
[2022-11-02 02:00] LABS: Troponin I High Sensitivity 16.7 pg/ml (0-20)
[2022-11-02 02:15] LABS: Albumin Level 3.4 gm/dl (3.4-5.0); BUN Creatinine Ratio 30.9 (10-20); Bilirubin,Total 0.5 mg/dl (0.2-1.0); Calcium 8.9 mg/dl (8.5-10.1); Creatinine Clr Calc Pharmacy 92.7 ml/min; Est GFR (African American) 95.5 ml/min; Est GFR (Non-African American) 82.4 ml/min; Globulin 3.3 gm/dl (2.5-4.0); Potassium 4.4 mmol/L (3.5-5.1); Total Protein 6.7 gm/dl (6.0-8.3)
[2022-11-02] MEDS ORDERED: SODIUM CHLORIDE 0.9% 250 ML IV PRN ×2 (02:18→02:19)
[2022-11-02] MEDS ORDERED: PANTOprazole 80 MG in DEXTROSE 5% 100 ML IV STA (02:19)
[2022-11-02] MEDS ORDERED: OPTIRAY 320 500ml IV ONE (03:09)
[2022-11-02 03:24] LABS: Influenza A virus by PCR Negative (Neg); Influenza B virus by PCR Negative (Neg); RSV by PCR Negative (Neg); SARS CoV2 RNA(COVID-19) Ceph NEGATIVE (Negative)
[2022-11-02] MEDS ORDERED: PIPERACILLIN/TAZOBACTAM 4.5 GM/120 ML BAG IV ONE (04:20)
--- NOTE | 2022-11-02 07:44 | CT Scan Report ---
CT OF THE ABDOMEN AND PELVIS WITH CONTRAST CLINICAL HISTORY: Lower GI bleed. COMPARISON STUDY: Renal ultrasound June 25, 2012. TECHNIQUE: Following IV administration of 116 mL of Optiray, axial images of the abdomen and pelvis w ere obtained from the lung bases to the proximal femurs. Images were reviewed in the axial, sagittal, and coronal planes. IV contrast was administered without complication. Automated exposure control w as utilized for the study. A dose lowering technique was utilized adhering to the principles of AQUILES Etienne FINDINGS: Please note that the chest CT will be reported separately. No pneumatosis or portal venous gas is present. Gallstone within the gallbladder is noted. There is no evidence for acute cholecystit is. No hepatic lesions are present. There is no biliary or pancreatic ductal dilatation. Spleen, adre nal glands and pancreas are unremarkable. There is a 2.8 cm right renal cyst. There is no hydronephro sis. There are bilateral renal parapelvic cysts. No lymphadenopathy is present. Colonic diverticulosi s is noted. There is a large diverticulum of the proximal sigmoid colon that measures 4 x 2.5 cm. Wal l thickening of the diverticulum is noted with adjacent inflammation. This represents acute diverticu litis. There are a few locules of extraluminal gas consistent with contained perforation. 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 There is no f luid collection to suggest an abscess. No additional sites of inflammation identified on this examina tion. Major vasculature is patent. Postoperative findings within the spine consistent with L4-L5 disc ectomy, posterior decompression and bilateral pedicle screw fusion are noted. IMPRESSION: 1. Extensive colonic diverticulosis. Large inflamed diverticulum of the sigmoid colon consistent with acute diverticulitis. No abscess. 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 This finding will be called /faxed to ordering provider at time of dictation. 2. No bowel obstruction. 3. Cholelithiasis. ACT 112: Negative or not required by law. Electronically signed by: Steve Khan M.D. 11/02/2022 7:42 AM
--- NOTE | 2022-11-02 08:11 | History and Physical Report ---
DATE OF ADMISSION: 11/02/2022. CHIEF COMPLAINT: Black stools and bright red blood per rectum. HISTORY OF PRESENT ILLNESS: This is a 71-year-old male with past medical history significant for type 2 diabetes, diabetic polyneuropathy, hyperlipidemia, hypertension, gout presents with blood per rectum since last evening at 6:00 p.m. The patient noticed first black stools then he noticed a lot of blood in the stools, multiple episodes and came to ER.When he came in, he was tachycardic, sinus tachycardia and his hemoglobin was 9.9, which was around 11 on 10/22/2022. Patient says he had back surgery recently, on 10/20/2022, after that he was constipated for a couple of weeks, after that bowels were moving regularly. Yesterday while he was ambulating with a walker, , after walking few steps he was feeling weak and because he was frustrated with that, he was getting hyperventilated and sob then he sat on the bed and later when he went to bathroom, he started noticing first black stools then blood in the stools; several episodes that is the reason he came here. He denies any incontinence. No abdominal pain. No nausea or vomiting. No chest pain, no shortness of breath, no cough, no fevers. He has some runny nose since winter, hard of hearing, no sore throat, no headache. Vision is okay. The patient is tachycardic in the ER. When he came his blood pressure was 120/69, currently 92/63. Received fluid, he has already received 1 bag of PRBC, getting second bag of PRBC in the ER. ALLERGIES: No known drug allergies. PAST MEDICAL HISTORY: As mentioned above. PAST SURGICAL HISTORY: Colonoscopy, dental surgery, sigmoidoscopy and back surgery. MEDICATIONS: The patient is on aspirin 81 mg p.o. at bedtime, allopurinol 300 mg p.o. daily, atenolol 50 mg p.o. daily, atorvastatin 40 mg p.o. at bedtime, diazepam 5 mg p.o. b.i.d. p.r.n., glipizide 2.5 mg p.o. daily, Glyxambi 1 tablet daily, losartan 100 mg p.o. at bedtime, metformin 1000 mg p.o. b.i.d., nortriptyline 25 mg p.o. at bedtime, oxycodone 5 mg p.o. q. 4 hours p.r.n., pioglitazone 45 mg p.o. daily. FAMILY HISTORY: Significant for father had basal cell cancer, diabetes, high cholesterol. Mother has stroke, diabetes. Maternal grandmother has diabetes, sister has diabetes. SOCIAL HISTORY: , no smoking, alcohol rare, no drug use. REVIEW OF SYSTEMS: As per HPI. Rest of the review of systems is negative. PHYSICAL EXAMINATION: GENERAL: The patient is of moderate build, not in acute distress. VITAL SIGNS: Temperature 37.1, pulse 112, respirations 16, blood pressure 92/63, oxygen 99% on room air. HEENT: Pupils equal, round and reactive to light. Oral mucosa moist. NECK: No JVD, no neck masses. CARDIOVASCULAR: S1 and S2 heard, tachycardia. No murmurs. RESPIRATORY SYSTEM: Normal AP diameter. No accessory muscle use. No wheezing, no crackles. ABDOMEN: Soft, bowel sounds present, nontender, no distention. CENTRAL NERVOUS SYSTEM: Alert and oriented. No facial droop, speech clear, insight ok. Moves extremities. power 5/5 in lower extremities, sensation intact. EXTREMITIES: No edema, no erythema. LABORATORY DATA: WBC 17, hemoglobin 9.9, hematocrit 30.1, platelets 418. Sodium 138, potassium 4.4, chloride 104, bicarbonate 20, BUN 29, creatinine 0.9, serum glucose 255, calcium 8.9, total bilirubin 0.5, AST 40, ALT 20, alkaline phosphatase 60. Troponin I high sensitivity 16.7, lipase 39. SARS-CoV-2 PCR negative. Influenza A and B PCR negative. RSV PCR negative. IMAGING DATA: CTA chest, preliminary report, no pulmonary emboli, no aortic dissection, mild ectasia, thoracic aorta measuring 4.1 cm diameter. No acute pulmonary parenchymal abnormality, cholelithiasis. Trace pericardial fluid, small rim calcified splenic artery aneurysm. CT of abdomen and pelvis with contrast, diverticulosis, large inflamed diverticulum of the sigmoid colon concerning for diverticulitis. Fluid in the colon consistent with diarrheal state. No small-bowel obstruction, normal appendix, hepatomegaly. Postsurgical changes at L4-L5, grade 1 anterolisthesis of L4 on L5. Chest x-ray, no acute findings. EKG: Sinus tachycardia at a rate of 139, nonspecific ST abnormalities. ASSESSMENT AND PLAN: This is a 71-year-old male who presents with a gastrointestinal bleed. 1. Gastrointestinal bleed, melena and bright red blood per rectum. CAT scan preliminary report showing diverticulosis and possible diverticulitis. He is tachycardic and his hemoglobin is 9.9, his hemoglobin was 11.1 on 10/22/2022. He already got 1 unit of PRBC, he is getting second unit of PRBC. We will follow H and H q. 6 hours, Protonix drip, IV fluids. GI consult. IV zosyn.Closely monitor in tele floor. Holding his aspirin.Follow final report of ct scan. 2. Diabetes: Hold his home p.o. medication, placed on insulin sliding scale. Glycemic pharmacy consult. Follow HBA1c. Follow the blood sugars. 3. Hypertension: Continue atenolol with holding parameters. We will hold the losartan for now.Close monitor. 4. History of gout: Continue allopurinol. 5. Hyperlipidemia: Continue statin. 6. Diabetic polyneuropathy . PT, OT when stable. Patient complained of some weakness and poor ambulatory status since his back surgery. Consider consulting Ortho when stable. 7. Thoracic aorta aneurysm. Follow final report of cta chest. 8.. Deep venous thrombosis prophylaxis: Sequential compression devices for now. DISPOSITION: Closely monitor in tele floor. Level 1 full code. PT/OT prior to discharge. Social service to help with discharge planning. Job ID: [id number] MTDD
--- NOTE | 2022-11-02 08:35 | Communication Note ---
Date of Service: November 02, 2022 Ordered iv zosyn for diverticulitis. Thanks
--- NOTE | 2022-11-02 09:07 | XRay Report ---
XR chest 1V portable HISTORY: Atypical Chest pain, nonspecific COMPARISON: None. FINDINGS: No pneumothorax. No pleural effusions. The heart is normal in size. The lungs are clear. No evidence for pulmonary edema. IMPRESSION: No acute process. ACT 112: Negative or not required by law. Electronically signed by: Kirill Inman M.D. 11/02/2022 9:05 AM
--- NOTE | 2022-11-02 09:36 | CT Scan Report ---
CHEST CTA for PULMONARY ARTERIES CT DOSE: 1417.35 mGy.cm HISTORY: Short of breath. Atypical chest pain. TECHNIQUE: Multiaxial CT images of the chest were performed following the intravenous administration of contrast to evaluate the pulmonary arteries. Maximal intensity projection images were also obtaine d. A dose lowering technique was utilized adhering to the principles of ALARA. COMPARISON STUDY: None. FINDINGS: No acute fractures identified within the chest. No pneumothorax. The central airways are pa tent. A 3 mm nodule within the lingula on image 146. No focal lung consolidations to suggest a pneumo joshua. No evidence for pulmonary edema. Old, healed right anterior rib fractures. The abdominal structu res will be reported on the same day abdomen and pelvis CT. Cholelithiasis is noted. Normal esophagus . No mediastinal or hilar lymphadenopathy. The heart is normal in size. Trace anterior pericardial fl uid is noted. No pleural effusions. The ascending thoracic aorta measures up to 4 cm in diameter. No evidence for an aortic dissection. No filling defects within the pulmonary arteries to suggest a pulm onary embolus. 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 IMPRESSION: 1. No evidence for a pulmonary embolus. 2. Mild aneurysmal dilatation of the ascending thoracic aorta measuring up to 4 cm in diameter. No ev idence for an aortic dissection. 3. A 3 mm lingular pulmonary nodule. 4. Cholelithiasis. ACT 112: Negative or not required by law. Electronically signed by: Kirill Inman M.D. 11/02/2022 9:34 AM
[2022-11-02] MEDS ORDERED: DEXTROSE 50% 50 ML SYRINGE IV PRN (09:58)
[2022-11-02] MEDS ORDERED: GLUCOSE 10 TAB/TUBE PO PRN (09:58)
[2022-11-02] MEDS ORDERED: NITROGLYCERIN SL 0.4 MG/TAB TAB SL PRN (09:58)
[2022-11-02] MEDS ORDERED: GLUCAGON FOR INJ 1 MG VIAL SQ PRN (09:58)
[2022-11-02] MEDS ORDERED: GLUCOSE 40% GEL 15 GM TUBE PO PRN (09:58)
[2022-11-02] MEDS ORDERED: PHARMACY GLYCEMIC MGMT CONSULT PRN (09:58)
[2022-11-02] MEDS ORDERED: CARBOHYDRATES FOR HYPOGLYCEMIA PO PRN (09:58)
--- NOTE | 2022-11-02 10:16 | Pharmacy Report ---
Pharmacy Glycemic Short Note 2 - Date of Service November 02, 2022 - Glycemic Short BSG Results (Last 24 hours): 11/02/22 01:25 Glucose 255 H OUTPATIENT ANTIDIABETIC REGIMEN: * Glyxambi 10-5 mg, glipizide 2.5 mg, metformin 1000 mg BID, pioglitazone * A1c order pending ASSESSMENT: * Patient admitted with GI bleed, currently NPO with protonix drip ordered (dextrose), and zosyn for possible diverticulitis (dextrose) * BSG elevated on lab this morning, awaiting POC BSG * Will start with novolog parameters weight based stress of 2, add conservative basal scale as patient is NPO. PLAN FOR INPATIENT GLYCEMIC CONTROL: * Hold outpatient oral diabetes medications * Basal insulin * Lantus 10/15 units SQ x1 * Bolus insulin * NovoLog per scale ACHS or Q6hrs while NPO * Goal Range: Low 120 mg/dL - High 160 mg/dL * Correction Factor: 25 mg/dL/unit * Nutritional / Prandial insulin per carb ratio of 1 unit per 8 grams CHO consumed
[2022-11-02 10:25] LABS: Basophils # (auto) 0.04 K/uL (0-0.2); Basophils % (auto) 0.3 %; Eosinophils # (auto) 0.04 K/uL (0-0.50); Eosinophils % (auto) 0.3 %; Hematocrit (blood only) 28.2 % (40.1-51.0); Hemoglobin 9.4 g/dl (14.0-18.0); Immature Granulocytes # (auto) 0.08 K/uL (0.00-0.02); Immature Granulocytes % (auto) 0.6 %; Lymphocytes # (auto) 1.87 K/uL (1.2-3.4); Lymphocytes % (auto) 15.2 %; Mean Corpuscular Hemoglobin 29.1 pg (25.0-34.0); Mean Corpuscular Hgb Conc 33.3 g/dL (32.0-36.0); Mean Corpuscular Volume 87.3 fL (80.0-100.0); Mean Platelet Volume 8.7 fL (9.4-12.4); Monocytes # (auto) 1.35 K/uL (0.24-0.82); Neutrophils # (auto) 8.94 K/uL (1.4-6.5); Neutrophils % (auto) 72.6 %; Platelet Count 293 K/uL (130-400); RDW Coefficient of Variation 14.8 % (11.5-14.5); RDW Standard Deviation 47.4 fL (36.4-46.3); Red Blood Count 3.23 M/uL (4.63-6.08); White Blood Count 12.32 K/ul (4.8-10.8)
[2022-11-02 10:33] LABS: Estimated Average Glucose 148 mg/dl; Hemoglobin A1C 6.8 % (4.5-5.6)
[2022-11-02] MEDS: SODIUM CHLORIDE 0.9% 1000ML 1,000 ML IV SCH ×2 (11:23→17:49)
[2022-11-02] MEDS: PIPERACILLIN/TAZOBACTAM 3.375 GM in DEXTROSE 5% 100 ML IV SCH ×2 (11:23→17:49)
[2022-11-02] MEDS: allopurinoL 300 MG TAB PO SCH (11:23)
[2022-11-02] MEDS: ATENOLOL 50 MG TABLET PO SCH (11:23)
[2022-11-02] MEDS ORDERED: LANTUS PER UNIT CHARGE SQ ONE (11:30)
[2022-11-02] MEDS: ACETAMINOPHEN 325 MG TAB PO PRN (11:58)
[2022-11-02] MEDS: PANTOprazole 40 MG in DEXTROSE 5% 100 ML IV SCH ×3 (11:58→22:54)
--- NOTE | 2022-11-02 12:15 | Gastrointestinal Consultation ---
Date of Consultation November 02, 2022 Assessment & Plan (1) Melena: (2) Acute blood loss anemia: (3) Diverticulitis: Plan 1. EGD tomorrow pending surgical input about ? sigmoid perforation. 2. NPO today except sips/chips. Then NPO after midnight except meds. 3. Pantoprazole drip. 4. Antibiotics to cover diverticulitis. Colonoscopy is contraindicated during an acute episode of diverticulitis. Will plan for OP colonoscopy in 2 months. 5. Surgical referral for diverticulitis. Supervising Physician Co-Signing Physician Notes I have seen and discussed the management with BERNARDA Mckay. Consult for bleeding - ? dark tarry stools and also with ? hematochezia. 71 yo male with known significant diverticulosis (per last colonoscopy done in 2012 with diverticulitis at that time treated with abx), now being admitted thru the er for reports of ? gi bleeding with slight drop in hgb and slight bun rise. Recent back surgery on 10/20 with constipation thereafter for 6 days postperatively and on chronic nsaid's - not clear if he was taking a ppi concomitantly or not and also taking aspirin. Now with reports of ? gi bleeding. Benign abd exam however stated to me he is not passing gas. Labs reviewed, imaging reviewed- sigmoid diverticulosis with diverticulitis noted, ? perforation as there appears to be gas but also ? a colonic fistula. Would continue iv abx, ppi, surgical input about ct findings. Pending above, possible egd tomorrow if clinically stable - would hold aspirin, npo until surgery sees patient and after midnite. History of Present Illness Reason for Consultation: melena and bright blood per rectum Requesting Physician: Dr. Weir Attending Physician: Zack Nix MD History of Present Illness Mr. Chris Jones is a 71 yr old male pt of Dr. Kemar ashford a hx of DM-2, gout, who underwent lumbar spine surgery on 10/20/22 then had constipation, not passing a BM until 10/26, then passing one loose brown BM daily the past week until last night when he felt SOB on exertion then at 6PM passed a loose black BM then two more similar BM last evening and again at 5:30 this morning. He has been taking NSAIDs, ibuprofen about twice daily for weeks and also takes one 81mg ASA daily. He denies any abdominal pain, nausea or vomiting. On arrival Hb 9, down from 14 a few wks ago (though that level of 14 was prior to spine surgery), Hb was 11 on discharge from that surgery. BUN is 29. 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 On exam he is completely non tender and soft on palpation the abdomen. He was mildly hypotensive on arrival but is now hemodynamically stable, awake, alert, with stable VS, on a pantoprazole drip and zosyn IV. He is very talkative and comfortable. Most recent BM was this morning at 5:30AM and was loose and black/red. Allergies Allergy/AdvReac Type Severity Reaction Status Date / Time No Known Allergies Allergy Verified 11/02/22 01:35 Home Medications Medication Instructions Recorded Confirmed Type oxycodone 5 mg tablet 5 mg PO Q4H PRN pain #15 tabs 10/14/22 11/02/22 Rx diazepam 5 mg tablet (Valium) 5 mg PO BID PRN sedation #11 tabs 10/16/22 11/02/22 Rx allopurinol 300 mg tablet 300 mg PO DAILY 10/17/22 11/02/22 History aspirin 81 mg tablet,delayed 81 mg PO HS 10/17/22 11/02/22 History release atenolol 50 mg tablet 50 mg PO DAILY 10/17/22 11/02/22 History atorvastatin 40 mg tablet 40 mg PO HS 10/17/22 11/02/22 History empagliflozin 10 mg-linagliptin 5 1 tab PO DAILY 10/17/22 11/02/22 History mg tablet (Glyxambi) glipizide 2.5 mg tablet, extended 2.5 mg PO DAILY 10/17/22 11/02/22 History release 24 hr losartan 100 mg tablet 100 mg PO HS 10/17/22 11/02/22 History metformin 1,000 mg tablet 1,000 mg PO BID 10/17/22 11/02/22 History nortriptyline 25 mg capsule 25 mg PO HS 10/17/22 11/02/22 History pioglitazone 45 mg tablet 45 mg PO DAILY 10/17/22 11/02/22 History Patient History Medical History Diabetes Diabetic polyneuropathy Dyslipidemia Hearing difficulty of both ears Hypertension Sciatica Surgical History [place] teeth removed Family History Mother Diabetes Stroke Sister Diabetes Grandmother (Maternal) Diabetes Father Diabetes Social History Smoking Status: Former smoker Do You Dip or Chew Tobacco: No; Hx Alcohol Use: No Hx Substance Use: No Preferred Language: Wolof Communication Ability: Effective Gambling Counsellor Required: No Beliefs That Will Affect Care: None marital status: Current Living Situation: Spouse How many Children do You have: 1 Feels Safe at Home: Yes Safety Concerns: Feels Safe At This Time Assistive Devices: Glasses, Hearing Aid - Bilateral and Walker Review of Systems Review of Systems: ROS: Gen: + SOB/weak yesterday - now resolved, No fevers, + weight loss related to back pain/surgery. Eyes: No eye redness, or pain, no recent vision changes Resp: + SOB yesterday, now resolved. No cough Cardio: No palpitations/irregular beats, no chest pain GI: No abdominal pain, no nausea/vomiting : Denies pain on urination Skin: No jaundice, itching or new rashes Physical Exam Constitutional: WD/WN, vitals as above Eyes: PERRL, conjunctivae normal, anicteric sclerae ENMT: external ear and nose normal, oropharynx normal Neck: trachea midline, no thyromegaly Respiratory: normal respiratory effort, lungs clear to auscultation Cardiovascular: RRR, no murmur, no edema Gastrointestinal (Abdomen): normal bowel sounds, soft, nontender, no hepatosplenomegaly Musculoskeletal: no cyanosis or clubbing, extremities motor strength 5/5 Skin: no rashes, warm and dry Lumbar spine incision healing well. Neurologic: PERRL, EOMI, accommodation nl, no face palsy, no dysarthria Psychiatric: A+Ox3, euthymic affect Lymphatic: no cervical or axillary lymphadenopathy Results & Data ([facility]) Vital Signs (Past 12 Hours) Vital Signs Temp Pulse Pulse Resp BP BP Pulse Ox 11/02/22 10:20 110 H 20 115/55 L 99 11/02/22 10:20 11/02/22 09:10 106 H 20 135/74 95 11/02/22 08:11 111 H 20 122/71 98 11/02/22 07:08 108 H 20 133/79 98 11/02/22 07:42 36.7 C 117 H 20 121/66 100 11/02/22 07:00 36.6 C 113 H 20 133/79 100 11/02/22 06:30 36.5 C 112 H 16 104/53 L 98 11/02/22 05:45 37.2 C 119 H 16 121/73 98 11/02/22 06:15 37.1 C 112 H 16 92/63 L 99 11/02/22 05:56 37 C 120 H 18 129/69 100 11/02/22 04:45 37.5 C 120 H 18 121/73 97 11/02/22 04:15 37.5 C 119 H 16 113/65 99 11/02/22 04:00 37.4 C 120 H 16 111/69 99 11/02/22 03:37 37.5 C 123 H 18 107/74 100 11/02/22 02:30 127 H 16 102/67 100 11/02/22 02:00 128 H 20 11/02/22 02:00 108/68 11/02/22 01:30 133 H 17 100 11/02/22 01:30 136/88 11/02/22 01:13 136 H 20 100 11/02/22 01:12 121/84 11/02/22 01:21 141 H 18 100 11/02/22 01:08 36.9 C 138 H 22 121/84 100 Pulse Ox O2 Del Method O2 Del Method 11/02/22 10:20 Room Air 11/02/22 10:20 96 Room Air 11/02/22 09:10 Room Air 11/02/22 08:11 Room Air 11/02/22 07:08 Room Air 11/02/22 07:42 11/02/22 07:00 11/02/22 06:30 11/02/22 05:45 11/02/22 06:15 11/02/22 05:56 11/02/22 04:45 11/02/22 04:15 11/02/22 04:00 11/02/22 03:37 11/02/22 02:30 Room Air 11/02/22 02:00 11/02/22 02:00 11/02/22 01:30 11/02/22 01:30 11/02/22 01:13 11/02/22 01:12 11/02/22 01:21 Room Air 11/02/22 01:08 Room Air Laboratory Results WBC 12.3, Hb 9.4, HCt 28, Plts 293, Na 138, K 4.4, Cl 104, CO2 20, BUN 29, Cr 0.94, glucose 285. Diagnostic Findings CTAP w IV today: 1. Extensive colonic diverticulosis. Large inflamed diverticulum of the sigmoid colon consistent with acute diverticulitis. No abscess. 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 This finding will be called/faxed to ordering provider at time of dictation. 2. No bowel obstruction. 3. Cholelithiasis.
[2022-11-02] MEDS: INSULIN ASPART PER UNIT SC SCH ×3 (12:44→18:19)
--- NOTE | 2022-11-02 13:41 | Surgery Consultation ---
Date of Consultation November 02, 2022 Assessment & Plan (1) Diverticulitis: 71-year-old male status post spinal surgery presented with lower GI bleed, hematocrit stable. During his evaluation it was noted that he had diverticulitis with question of extraluminal foci of air versus coloenteric fistula. No emergent surgical indication at this time Recommend treatment with IV antibiotics and continue to trend H&H Will need outpatient colonoscopy after inflammation subsides Surgery will follow, call with questions or concerns (2) Lower GI bleed: (3) Diabetes: (4) Dyslipidemia: (5) Hypertension: History of Present Illness Attending Physician: Zack Nix MD History of Present Illness 71-year-old male status post recent spine surgery with Dr. Sequeira earlier this month presented to the emergency department with suspicion for lower GI bleed. He was extremely constipated during his admission but was able to have a bowel movement. This was followed by loose stool for several days. After that he did not have many bowel movements at home. His most recent bowel movement a few days ago was tinged with blood and black appearing. He then had several more bowel movements like this. He felt weak when using his front wheeled walker. He presented to the emergency department and was transfused blood. His hematocrit remained stable. He did have a liquid bowel movement that did not have blood-tinged to at this time. During his evaluation he had a CT scan which showed a large diverticulum with suspicion for diverticulitis with possible small foci of extraluminal air versus coloenteric fistula. He did not have any abdominal pain throughout this episode. He had 1 episode of diverticulitis treated as an outpatient in the past. His last colonoscopy was 9 years ago. He is not on any blood thinners except for aspirin. No prior abdominal surgeries. Allergies Allergy/AdvReac Type Severity Reaction Status Date / Time No Known Allergies Allergy Verified 11/02/22 01:35 Home Medications Medication Instructions Recorded Confirmed Type oxycodone 5 mg tablet 5 mg PO Q4H PRN pain #15 tabs 10/14/22 11/02/22 Rx diazepam 5 mg tablet (Valium) 5 mg PO BID PRN sedation #11 tabs 10/16/22 11/02/22 Rx allopurinol 300 mg tablet 300 mg PO DAILY 10/17/22 11/02/22 History aspirin 81 mg tablet,delayed 81 mg PO HS 10/17/22 11/02/22 History release atenolol 50 mg tablet 50 mg PO DAILY 10/17/22 11/02/22 History atorvastatin 40 mg tablet 40 mg PO HS 10/17/22 11/02/22 History empagliflozin 10 mg-linagliptin 5 1 tab PO DAILY 10/17/22 11/02/22 History mg tablet (Glyxambi) glipizide 2.5 mg tablet, extended 2.5 mg PO DAILY 10/17/22 11/02/22 History release 24 hr losartan 100 mg tablet 100 mg PO HS 10/17/22 11/02/22 History metformin 1,000 mg tablet 1,000 mg PO BID 10/17/22 11/02/22 History nortriptyline 25 mg capsule 25 mg PO HS 10/17/22 11/02/22 History pioglitazone 45 mg tablet 45 mg PO DAILY 10/17/22 11/02/22 History Patient History Medical History (Updated 11/02/22 @ 13:39 by Stu Conrad DO, FACS) Diabetes Diabetic polyneuropathy Dyslipidemia Hearing difficulty of both ears Hypertension Lower GI bleed Sciatica Surgical History [place] teeth removed Family History Mother Diabetes Stroke Sister Diabetes Grandmother (Maternal) Diabetes Father Diabetes Social History Smoking Status: Former smoker Do You Dip or Chew Tobacco: No; Hx Alcohol Use: No Hx Substance Use: No Preferred Language: Gibraltarian Communication Ability: Effective Rf Technician Required: No Beliefs That Will Affect Care: None marital status: Current Living Situation: Spouse How many Children do You have: 1 Feels Safe at Home: Yes Safety Concerns: Feels Safe At This Time Assistive Devices: Glasses, Hearing Aid - Bilateral and Walker Review of Systems Review of Systems: All systems reviewed & are unremarkable except as noted in HPI & below Physical Exam Constitutional: WD/WN, vitals as above Respiratory: normal respiratory effort, lungs clear to auscultation Cardiovascular: RRR, no murmur, no edema Gastrointestinal (Abdomen): normal bowel sounds, soft, nontender, no hepatosplenomegaly Results & Data ([facility]) Vital Signs (Past 12 Hours) Vital Signs Temp Pulse Pulse Resp BP BP Pulse Ox 11/02/22 12:00 83 15 100 11/02/22 12:00 97/75 L 11/02/22 11:58 120/52 L 11/02/22 11:58 78 19 11/02/22 11:00 105 H 16 98 11/02/22 11:00 125/67 11/02/22 10:20 110 H 20 115/55 L 99 11/02/22 10:20 11/02/22 09:10 106 H 20 135/74 95 11/02/22 08:11 111 H 20 122/71 98 11/02/22 07:08 108 H 20 133/79 98 11/02/22 07:42 36.7 C 117 H 20 121/66 100 11/02/22 07:00 36.6 C 113 H 20 133/79 100 11/02/22 06:30 36.5 C 112 H 16 104/53 L 98 11/02/22 05:45 37.2 C 119 H 16 121/73 98 11/02/22 06:15 37.1 C 112 H 16 92/63 L 99 11/02/22 05:56 37 C 120 H 18 129/69 100 11/02/22 04:45 37.5 C 120 H 18 121/73 97 11/02/22 04:15 37.5 C 119 H 16 113/65 99 11/02/22 04:00 37.4 C 120 H 16 111/69 99 11/02/22 03:37 37.5 C 123 H 18 107/74 100 11/02/22 02:30 127 H 16 102/67 100 11/02/22 02:00 128 H 20 11/02/22 02:00 108/68 Pulse Ox O2 Del Method O2 Del Method 11/02/22 12:00 11/02/22 12:00 11/02/22 11:58 11/02/22 11:58 11/02/22 11:00 11/02/22 11:00 11/02/22 10:20 Room Air 11/02/22 10:20 96 Room Air 11/02/22 09:10 Room Air 11/02/22 08:11 Room Air 11/02/22 07:08 Room Air 11/02/22 07:42 11/02/22 07:00 11/02/22 06:30 11/02/22 05:45 11/02/22 06:15 11/02/22 05:56 11/02/22 04:45 11/02/22 04:15 11/02/22 04:00 11/02/22 03:37 11/02/22 02:30 Room Air 11/02/22 02:00 11/02/22 02:00 Laboratory Results Laboratory Results - last 24 hr 11/02/22 11/02/22 11/02/22 01:25 01:25 01:45 WBC 17.16 H RBC 3.31 L Hgb 9.9 L Hct 30.1 L MCV 90.9 MCH 29.9 MCHC 32.9 RDW Std Deviation 44.5 RDW Coeff of [place] 13.4 Plt Count 418 H MPV 9.0 L Immature Gran % (Auto) 0.6 Neut % (Auto) 74.5 Lymph % (Auto) 12.5 [place] % (Auto) 11.9 Eos % (Auto) 0.2 Baso % (Auto) 0.3 Neut # (Auto) 12.78 H Lymph # (Auto) 2.14 [place] # (Auto) 2.04 H Eos # (Auto) 0.04 Baso # (Auto) 0.05 Immature Gran # (Auto) 0.11 H Sodium 138 Potassium 4.4 Chloride 104 Carbon Dioxide 20 L Anion Gap 14 H BUN 29 H Creatinine 0.94 Est Cr Clr Drug Dosing 92.7 Est GFR ( Amer) 95.5 Est GFR (Non-Af Amer) 82.4 BUN/Creatinine Ratio 30.9 H Glucose 255 H POC Glucose Estimat Average Glucose Hemoglobin A1c Calcium 8.9 Magnesium Total Bilirubin 0.5 AST 14 ALT 20 Alkaline Phosphatase 60 Troponin I High Sens 16.7 Total Protein 6.7 Albumin 3.4 Globulin 3.3 Albumin/Globulin Ratio 1.0 Lipase 39 SARS-CoV-2 (PCR) Influenza Type A (PCR) Influenza Type B (PCR) RSV (RT-PCR) Blood Type O Negative Antibody Screen NEGATIVE Crossmatch See Detail 11/02/22 11/02/22 11/02/22 02:26 10:06 10:06 WBC 12.32 H RBC 3.23 L Hgb 9.4 L Hct 28.2 L MCV 87.3 MCH 29.1 MCHC 33.3 RDW Std Deviation 47.4 H RDW Coeff of [place] 14.8 H Plt Count 293 MPV 8.7 L Immature Gran % (Auto) 0.6 Neut % (Auto) 72.6 Lymph % (Auto) 15.2 [place] % (Auto) 11.0 Eos % (Auto) 0.3 Baso % (Auto) 0.3 Neut # (Auto) 8.94 H Lymph # (Auto) 1.87 [place] # (Auto) 1.35 H Eos # (Auto) 0.04 Baso # (Auto) 0.04 Immature Gran # (Auto) 0.08 H Sodium Potassium Chloride Carbon Dioxide Anion Gap BUN Creatinine Est Cr Clr Drug Dosing Est GFR ( Amer) Est GFR (Non-Af Amer) BUN/Creatinine Ratio Glucose POC Glucose Estimat Average Glucose 148 Hemoglobin A1c 6.8 H Calcium Magnesium Total Bilirubin AST ALT Alkaline Phosphatase Troponin I High Sens Total Protein Albumin Globulin Albumin/Globulin Ratio Lipase SARS-CoV-2 (PCR) NEGATIVE Influenza Type A (PCR) Negative Influenza Type B (PCR) Negative RSV (RT-PCR) Negative Blood Type Antibody Screen Crossmatch 11/02/22 11/02/22 10:06 12:02 WBC RBC Hgb Hct MCV MCH MCHC RDW Std Deviation RDW Coeff of [place] Plt Count MPV Immature Gran % (Auto) Neut % (Auto) Lymph % (Auto) [place] % (Auto) Eos % (Auto) Baso % (Auto) Neut # (Auto) Lymph # (Auto) [place] # (Auto) Eos # (Auto) Baso # (Auto) Immature Gran # (Auto) Sodium Potassium Chloride Carbon Dioxide Anion Gap BUN Creatinine Est Cr Clr Drug Dosing Est GFR ( Amer) Est GFR (Non-Af Amer) BUN/Creatinine Ratio Glucose POC Glucose 200 H Estimat Average Glucose Hemoglobin A1c Calcium Magnesium 1.7 Total Bilirubin AST ALT Alkaline Phosphatase Troponin I High Sens Total Protein Albumin Globulin Albumin/Globulin Ratio Lipase SARS-CoV-2 (PCR) Influenza Type A (PCR) Influenza Type B (PCR) RSV (RT-PCR) Blood Type Antibody Screen Crossmatch Diagnostic Findings I personally reviewed and interpreted the CT scan and agree with the assessment of a large diverticulum with some mild inflammation consistent with acute diverticulitis. CT OF THE ABDOMEN AND PELVIS WITH CONTRAST CLINICAL HISTORY: Lower GI bleed. COMPARISON STUDY: Renal ultrasound June 25, 2012. TECHNIQUE: Following IV administration of 116 mL of Optiray, axial images of the abdomen and pelvis were obtained from the lung bases to the proximal femurs. Images were reviewed in the axial, sagittal, and coronal planes. IV contrast was administered without complication. Automated exposure control was utilized for the study. A dose lowering technique was utilized adhering to the principles of ALARA. FINDINGS: Please note that the chest CT will be reported separately. No pneumatosis or portal venous gas is present. Gallstone within the gallbladder is noted. There is no evidence for acute cholecystitis. No hepatic lesions are present. There is no biliary or pancreatic ductal dilatation. Spleen, adrenal glands and pancreas are unremarkable. There is a 2.8 cm right renal cyst. There is no hydronephrosis. There are bilateral renal parapelvic cysts. No lymphadenopathy is present. Colonic diverticulosis is noted. There is a large diverticulum of the proximal sigmoid colon that measures 4 x 2.5 cm. Wall thickening of the diverticulum is noted with adjacent inflammation. This represents acute diverticulitis. There are a few locules of extraluminal gas consistent with contained perforation. 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 There is no fluid collection to suggest an abscess. No additional sites of inflammation identified on this examination. Major vasculature is patent. Postoperative findings within the spine consistent with L4-L5 discectomy, posterior decompression and bilateral pedicle screw fusion are noted. IMPRESSION: 1. Extensive colonic diverticulosis. Large inflamed diverticulum of the sigmoid colon consistent with acute diverticulitis. No abscess. 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 This finding will be called/faxed to ordering provider at time of dictation. 2. No bowel obstruction. 3. Cholelithiasis. PG Care Time/CCT Total # of Minutes Spent Total Time Spent with Patient: Total time spent is greater than 50% in coordination of care (as documented) at patient's floor/unit and/or counseling patient: Coding Level of Care Code 39831 Initial Inpt Care Lvl 1 Diagnoses Diverticulitis K57.92 Lower GI bleed K92.2 Diabetes E11.9 Dyslipidemia E78.5 Hypertension I10
[2022-11-02 15:54] LABS: Hematocrit (blood only) 28.2 % (40.1-51.0); Hemoglobin 9.3 g/dl (14.0-18.0)
--- NOTE | 2022-11-02 16:25 | Communication Note ---
Date of Service: November 02, 2022 The patient was seen and examined in emergency room. Presented with bright red blood per rectum and no more bleeding since admission and denies any other significant symptoms. Full progress note will be done tomorrow. Dr Stewart Nix
[2022-11-02] MEDS ORDERED: Nursing to Pharmacy Communication SCH (16:45)
[2022-11-02] MEDS: NORTRIPTYLINE HCL 25 MG CAP PO SCH (21:30)
[2022-11-02] MEDS: ATORVASTATIN 40 MG TAB PO SCH (21:31)
[2022-11-03] MEDS: INSULIN ASPART PER UNIT SC SCH ×6 (00:38→21:27)
[2022-11-03] MEDS: PIPERACILLIN/TAZOBACTAM 3.375 GM in DEXTROSE 5% 100 ML IV SCH ×3 (01:50→17:10)
[2022-11-03] MEDS: SODIUM CHLORIDE 0.9% 1000ML 1,000 ML IV SCH ×3 (02:18→17:10)
[2022-11-03] MEDS: PANTOprazole 40 MG in DEXTROSE 5% 100 ML IV SCH ×3 (03:55→13:25)
[2022-11-03] MEDS: ACETAMINOPHEN 325 MG TAB PO PRN (06:31)
[2022-11-03 06:53] LABS: Basophils # (auto) 0.06 K/uL (0-0.2); Basophils % (auto) 0.7 %; Eosinophils # (auto) 0.29 K/uL (0-0.50); Eosinophils % (auto) 3.3 %; Hematocrit (blood only) 25.6 % (40.1-51.0); Hemoglobin 8.4 g/dl (14.0-18.0); Immature Granulocytes # (auto) 0.09 K/uL (0.00-0.02); Lymphocytes # (auto) 2.06 K/uL (1.2-3.4); Lymphocytes % (auto) 23.2 %; Mean Corpuscular Hemoglobin 29.1 pg (25.0-34.0); Mean Corpuscular Hgb Conc 32.8 g/dL (32.0-36.0); Mean Corpuscular Volume 88.6 fL (80.0-100.0); Mean Platelet Volume 9.1 fL (9.4-12.4); Monocytes # (auto) 0.99 K/uL (0.24-0.82); Monocytes % (auto) 11.1 %; Neutrophils % (auto) 60.7 %; Platelet Count 288 K/uL (130-400); RDW Coefficient of Variation 15.3 % (11.5-14.5); RDW Standard Deviation 49.1 fL (36.4-46.3); Red Blood Count 2.89 M/uL (4.63-6.08); White Blood Count 8.89 K/ul (4.8-10.8)
[2022-11-03 07:17] LABS: BUN Creatinine Ratio 15.4 (10-20); Calcium 7.9 mg/dl (8.5-10.1); Creatinine Clr Calc Pharmacy 113.4 ml/min; Est GFR (African American) 106.7 ml/min; Est GFR (Non-African American) 92.1 ml/min; Potassium 3.5 mmol/L (3.5-5.1)
[2022-11-03] MEDS: allopurinoL 300 MG TAB PO SCH (08:18)
[2022-11-03] MEDS: ATENOLOL 50 MG TABLET PO SCH (08:18)
--- NOTE | 2022-11-03 10:03 | Anesthesiology Consultation ---
Date of Service November 03, 2022 Assessment & Plan Chart Review Chart Review: Acceptable Risk for Surgery, Patient NOT seen in Pre Admission Testing and entry level sales representative initiated Consults Requested none History Surgery Operation Date: 11/03/22 16:00 Proposed Procedures p Esophagogastroduodenoscopy Dr. Olaf Babin MD Height/Weight Height: 6 ft 2 in Weight: 101 kg Allergies Allergy/AdvReac Type Severity Reaction Status Date / Time No Known Allergies Allergy Verified 11/02/22 01:35 Medications Home Medications Medication Instructions Recorded Confirmed Last Taken oxycodone 5 mg tablet 5 mg PO Q4H PRN pain #15 tabs 10/14/22 11/02/22 Unknown diazepam 5 mg tablet (Valium) 5 mg PO BID PRN sedation #11 tabs 10/16/22 11/02/22 Unknown allopurinol 300 mg tablet 300 mg PO DAILY 10/17/22 11/02/22 11/01/22 aspirin 81 mg tablet,delayed 81 mg PO HS 10/17/22 11/02/22 10/31/22 release atenolol 50 mg tablet 50 mg PO DAILY 10/17/22 11/02/22 11/01/22 atorvastatin 40 mg tablet 40 mg PO HS 10/17/22 11/02/22 10/31/22 empagliflozin 10 mg-linagliptin 5 1 tab PO DAILY 10/17/22 11/02/22 11/01/22 mg tablet (Glyxambi) glipizide 2.5 mg tablet, extended 2.5 mg PO DAILY 10/17/22 11/02/22 11/01/22 release 24 hr losartan 100 mg tablet 100 mg PO HS 10/17/22 11/02/22 10/31/22 metformin 1,000 mg tablet 1,000 mg PO BID 10/17/22 11/02/22 11/01/22 08:00 nortriptyline 25 mg capsule 25 mg PO HS 10/17/22 11/02/22 10/31/22 pioglitazone 45 mg tablet 45 mg PO DAILY 10/17/22 11/02/22 11/01/22 Active Medications Generic Name Dose Route Start Last Admin Trade Name Freq PRN Reason Stop Dose Admin Acetaminophen 650 mg 11/02/22 09:58 11/03/22 06:31 Acetaminophen 325 Mg Tab PO 01/20/23 09:57 650 mg Q4H PRN Administration Pain or Fever Allopurinol 300 mg 11/02/22 09:58 11/03/22 08:18 Allopurinol 300 Mg Tab PO 12/02/22 09:57 Not Given DAILY ABDIEL Atenolol 50 mg 11/02/22 09:58 11/03/22 08:18 Atenolol 50 Mg Tablet PO 12/02/22 09:57 Not Given DAILY ABDIEL Atorvastatin Calcium 40 mg 11/02/22 21:00 11/02/22 21:31 Atorvastatin 40 Mg Tab PO 12/02/22 20:59 40 mg HS ABDIEL Administration Sodium Chloride 1,000 mls @ 125 mls/hr 11/02/22 09:58 11/03/22 08:10 Nss 1000ml IV 12/02/22 09:57 125 mls/hr .Q8H ABDIEL Administration Pantoprazole Sodium 40 mg/ 100 mls @ 20 mls/hr 11/02/22 10:15 11/03/22 08:22 Dextrose IV 12/02/22 10:14 8 mg/hr Q5H ABDIEL 20 mls/hr Administration 8 MG/HR Piperacillin Sod/Tazobactam 115 mls @ 28.75 mls/hr 11/02/22 10:00 11/03/22 05:55 Sod 3.375 gm/ Dextrose IV 11/12/22 09:59 Infused Q8H ABDIEL Infusion Protocol Insulin Aspart 0 units 11/02/22 18:00 11/03/22 06:34 Insulin Aspart Per Unit SC 12/02/22 11:29 Not Given Q6 ABDIEL Nortriptyline HCl 25 mg 11/02/22 21:00 11/02/22 21:30 Nortriptyline Hcl 25 Mg Cap PO 12/02/22 20:59 25 mg HS ABDIEL Administration Past Medical History Medical History Diabetes Diabetic polyneuropathy Dyslipidemia Hearing difficulty of both ears Hypertension Lower GI bleed Sciatica Past Family History Family History Mother Diabetes Stroke Sister Diabetes Grandmother (Maternal) Diabetes Father Diabetes Past Surgical History Surgical History [place] teeth removed Social History Smoking Status: Former smoker Do You Dip or Chew Tobacco: No Hx Alcohol Use: No Hx Substance Use: No Physical Exam Vital Signs Last Vital Signs Temp 36.5 C 11/03/22 07:03 Pulse 72 11/03/22 07:03 Resp 17 11/03/22 07:03 BP 121/67 11/03/22 07:03 Pulse Ox 98 11/03/22 07:03 O2 Del Method 11/03/22 07:03 Testing Laboratory Results 11/03/22 06:10 11/03/22 06:10 Hemoglobin A1c 6.8 % (4.5-5.6) H 11/02/22 10:06 Blood Type O Negative 11/02/22 01:45 Antibody Screen NEGATIVE 11/02/22 01:45 11/02/22 02:26 Aerobic Blood Culture - Preliminary Blood No growth in Aerobic bottle after 24 hours. Anaerobic Blood Culture - Preliminary No growth in Anaerobic bottle after 24 hours. 11/02/22 02:18 Aerobic Blood Culture - Preliminary Blood No growth in Aerobic bottle after 24 hours. Anaerobic Blood Culture - Preliminary No growth in Anaerobic bottle after 24 hours. 11/03/22 00:36 POC Glucose 158 H Electrocardiogram Date: 11/02/2202-Nov-2022 01:10:13 [facility]-EDSTAT ROUTINE RETRIEVAL Sinus tachycardia Nonspecific ST abnormality Abnormal ECG When compared with ECG of 19-OCT-2022 16:22, Vent. rate has increased BY 78 BPM Nonspecific T wave abnormality, worse in Inferior leads Chest X-Ray Date: 11/02/22 XR chest 1V portable HISTORY: Atypical Chest pain, nonspecific COMPARISON: None. FINDINGS: No pneumothorax. No pleural effusions. The heart is normal in size. The lungs are clear. No evidence for pulmonary edema. IMPRESSION: No acute process.
--- NOTE | 2022-11-03 10:25 | Surgery Progress Note ---
Date of Service November 03, 2022 Assessment & Plan (1) Diverticulitis: Plan: Patient is feeling well WBC 8. Hbg today 8.4 (9.3). Vitals are stable GI planning on performing EGD today Abdominal exam is currently benign. He is passing flatus Continue abx for diverticulitis. S/p EGD can probably start clears if okay with GI Admission and Anticipated Discharge Date Admission Date: November 02, 2022 Supervising Physician Co-Signing Physician Notes Patient in endoscopy during my visit, uneventful night. Labs reviewed, agree with above. EGD recently performed showed duodenal erosion likely secondary to recent NSAID use, clip was placed. Apparently he has been passing gas and his abdomen is benign. We will continue IV antibiotics for treatment of diverticulitis as well as avoiding NSAIDs and using PPI and Carafate per GI. Surgery is okay with him starting clear liquids and slowly advance it to a low fiber diet. Surgery will continue to follow. Subjective Patient is feeling well. Denies abdominal pain, nausea/vomiting. Passing flatus. No further blood per rectum. Physical Exam Physical Exam: awake/alert, no distress Gastrointestinal (Abdomen): Inspection/Auscultation: abdomen not distended Percussion/Palpation: abdomen soft; abdomen nontender Results & Data ([facility]) Vital Signs (Past 12 Hours) Vital Signs Temp Pulse Resp BP Pulse Ox O2 Del Method 11/03/22 07:03 36.5 C 72 17 121/67 98 Room Air 11/03/22 03:30 36.6 C 75 18 99/45 L 100 Room Air 11/02/22 22:49 36.5 C 65 20 92/44 L 99 Room Air PG Care Time/CCT Total # of Minutes Spent Total Time Spent with Patient: Total time spent is greater than 50% in coordination of care (as documented) at patient's floor/unit and/or counseling patient: Coding Level of Care Code 02831 Subseq Hosp Care Lvl 1 Diagnoses Diverticulitis K57.92
--- NOTE | 2022-11-03 11:09 | History & Physical Bridge Note ---
Date of Service November 03, 2022 History & Physical Bridge Note I have examined the patient, reviewed the History & Physical and in the interval since the performance of the History & Physical I have noted the following changes of clinical significance: no changes noted Supervising Physician Co-Signing Physician Notes EGD for evaluation of anemia Abd soft
[2022-11-03] MEDS ORDERED: LIDOCAINE 2% MPF LOCAL 5 ML VIAL INFIL ONE (11:25)
[2022-11-03] MEDS ORDERED: PROPOFOL IV EMULSION 10 MG/ML 20 ML VIAL IV ONE (11:25)
--- NOTE | 2022-11-03 11:27 | GI REPORT ---
Patient Name: Chris Jones Procedure Date: 11/03/2022 10:47 AM Date of : 1950 Admit Type: Inpatient Age: 71 Gender: Male Attending MD: Maria E Babin M.d., Procedure: Upper GI endoscopy Providers: Maria E Babin M.d. Referring MD: Zack Nix Indications: Melena Medicines: See anesthesia record Complications: No immediate complications. Estimated Blood Loss: Estimated blood loss: none. Procedure: Pre-Anesthesia Assessment: - Patient identification and proposed procedure were verified prior to the procedure by the physician, the nurse and the anesthesiologist. The procedure was verified in the pre-procedure area. - Prior to the procedure, a History and Physical was performed, and patient medications, allergies and sensitivities were reviewed. The patient's tolerance of previous anesthesia was reviewed. - The risks and benefits of the procedure and the sedation options and risks were discussed with the patient. All questions were answered and informed consent was obtained. After obtaining informed consent, the endoscope was passed under direct vision. Throughout the procedure, the patient's blood pressure, pulse, and oxygen saturations were monitored continuously. The Endoscope was introduced through the mouth, and advanced to the second part of duodenum. The upper GI endoscopy was accomplished without difficulty. The patient tolerated the procedure well. Findings: The examined esophagus appeared normal. Localized mild inflammation characterized by erythema was found in the gastric antrum. The examined stomach otherwise appeared normal. The duodenal bulb and second portion of the duodenum appeared normal. Upon entry into the 2nd portion of the duodenum, scattered hematin was noted and a blood clot that was lavaged. That then revealed a small erosion. A single localized erosion with mild bleeding was found in the second portion of the duodenum - no spurting vessel was noted. For hemostasis, one hemostatic clip was successfully placed (MR conditional). There was no bleeding at the end of the procedure. Impression: - Normal esophagus. - Antral gastritis. - Normal stomach. - Normal duodenal bulb and second portion of the duodenum. - Duodenal erosion in the 2nd portion with faint bleeding. Clip (MR conditional) was placed- no further bleeding was noted. Recommendation: - Ideally avoid nsaid's. - Would start carafate 1 gram qid for 28 days and also take PPI twice daily for 8 weeks. - Likely erosion and gastritis is from recent nsaid use. Maria E Babin M.D. Maria E Babin M.d. 11/03/2022 11:26:50 AM This report has been signed electronically. Note Initiated On: 11/03/2022 10:47 AM Number of Addenda: 0 I attest to the content of the Intraoperative Record and orders documented therein, exceptions below {[id number]}
--- NOTE | 2022-11-03 11:28 | Communication Note ---
Date of Service: November 03, 2022 EGD completed with findings of antral gastritis and duodenal erosion with faint bleeding- clip placed with no further bleeding noted. Likely from recent nsaid use. Would start carafate 1 gram qid for 28 days and also PPI bid for 8 weeks. Ideally avoid nsaid's, if to remains on nsaid's he should definitely take the above medications. Treat the diverticulitis- outpatient colonoscopy in 8-12 weeks after repeat imaging. Surgical input has been obtained about ? sigmoid perforation with no plans for intervention. Advance diet as tolerated. Call if questions.
[2022-11-03] MEDS ORDERED: INSULIN ASPART PER UNIT SC SCH (14:30)
--- NOTE | 2022-11-03 14:39 | Pharmacy Report ---
Pharmacy Glycemic Short Note 2 - Date of Service November 03, 2022 - Glycemic Short BSG Results (Last 24 hours): 11/02/22 11/03/22 11/03/22 18:03 00:36 06:10 Glucose 156 H POC Glucose 232 H 158 H OUTPATIENT ANTIDIABETIC REGIMEN: * Glyxambi 10-5 mg, glipizide 2.5 mg, metformin 1000 mg BID, pioglitazone * A1c order pending ASSESSMENT: 11/03/22 * Patient's BSGs yesterday were [phone] mg/dL. Patient received 20 units of insulin * Fasting today is 138 mg/dl. Patient went to endoscopy today and did not return until 1400. * Patient ate lunch tray prior to lunch BSG so recommended just cover carbs for lunch around 1445. Lantus 15 units ordered as fasting was appropriate today. * Re-evaluate Lantus tomorrow. * Novolog currently weight-based stress of 2 which is appropriate. Background * Patient admitted with GI bleed, currently NPO with protonix drip ordered (dextrose), and zosyn for possible diverticulitis (dextrose) * BSG elevated on lab this morning, awaiting POC BSG * Will start with novolog parameters weight based stress of 2, add conservative basal scale as patient is NPO. PLAN FOR INPATIENT GLYCEMIC CONTROL: * Hold outpatient oral diabetes medications * Basal insulin * Lantus 15 units SQ x1 * Bolus insulin * NovoLog per scale ACHS or Q6hrs while NPO * Goal Range: Low 120 mg/dL - High 160 mg/dL * Correction Factor: 25 mg/dL/unit * Nutritional / Prandial insulin per carb ratio of 1 unit per 8 grams CHO consumed
[2022-11-03] MEDS ORDERED: LANTUS PER UNIT CHARGE SQ ONE (14:45)
--- NOTE | 2022-11-03 14:57 | Hospitalist Progress Note ---
Date of Service November 03, 2022 Assessment & Plan (1) Lower GI bleed: Plan: Admitted with bright red rectal bleed and also melena Did not have any abdominal discomfort but noted to have acute diverticulitis on CAT scan Status post 2 units of blood transfusion Was on intravenous PPI Hemoglobin is stable at 8.4 as of today Will have colonoscopy as an outpatient in 8 to 12 weeks weeks Status post EGD-note from GI EGD completed with findings of antral gastritis and duodenal erosion with faint bleeding- clip placed with no further bleeding noted. Likely from recent nsaid use. Would start carafate 1 gram qid for 28 days and also PPI bid for 8 weeks. Ideally avoid nsaid's, if to remains on nsaid's he should definitely take the above medications. Treat the diverticulitis- outpatient colonoscopy in 8-12 weeks after repeat imaging. Surgical input has been obtained about ? sigmoid perforation with no plans for intervention. Advance diet as tolerated. 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 Appreciate surgery input and recommendation-for conservative management Has been on intravenous Zosyn Will continue antibiotic for about 14 days in total with transition to Augmentin Patient remained free from any symptoms (4) Hypertension: Plan: Blood pressure remains stable (5) Diabetes: Plan: Diabetic diet SSI (6) Dyslipidemia: Plan: Continue statin Plan DVT prophylaxis SCDs CODE STATUS Full Admission and Anticipated Discharge Date Admission Date: November 02, 2022 Subjective 11/03/2022 The patient was seen and examined in telemetry unit He denies any more symptoms and his bowel has not moved Denies any abdominal pain, nausea and or vomiting He has had EGD Review of Systems Review of Systems: All systems reviewed and are unremarkable except as noted below Physical Exam Physical Exam: Lying in bed comfortably Constitutional: well developed, well nourished and + obese; not ill appearing Eyes: PERRL, conjunctivae normal, anicteric sclerae ENMT: external ear and nose normal, oropharynx normal Neck: trachea midline, no thyromegaly Respiratory: no respiratory distress Auscultation: lungs clear to auscultation bilaterally Cardiovascular: Rate/Rhythm: regular rate and regular rhythm; not tachycardic Heart Sounds: normal S1 and normal S2; no murmur Gastrointestinal (Abdomen): Inspection/Auscultation: normal bowel sounds; abdomen not distended Percussion/Palpation: abdomen soft; abdomen nontender Musculoskeletal: No acute arthritis in any joint Neurologic: normal touch/pain/proprioception and moves all extremities; no focal motor deficits Psychiatric: A+Ox3, euthymic affect Lymphatic: no cervical or axillary lymphadenopathy Results & Data Results & Data ([facility]) Vital Signs (Past 12 Hours) Vital Signs Temp Pulse Pulse Resp BP Pulse Ox O2 Del Method 11/03/22 12:39 36.6 C 76 18 168/88 H 96 Room Air 11/03/22 11:58 72 16 140/73 99 Room Air 11/03/22 11:44 77 16 131/71 99 Room Air 11/03/22 11:29 76 16 115/63 99 Room Air 11/03/22 11:13 64 11/03/22 10:41 36.1 C L 79 16 122/72 99 Room Air 11/03/22 07:03 36.5 C 72 17 121/67 98 Room Air 11/03/22 03:30 36.6 C 75 18 99/45 L 100 Room Air Laboratory Results Short CBC 11/02/22 11/03/22 Range/Units 15:47 06:10 WBC 8.89 (4.8-10.8) K/ul Hgb 9.3 L 8.4 L (14.0-18.0) g/dl Hct 28.2 L 25.6 L (40.1-51.0) % Plt Count 288 (130-400) K/uL BMP 11/03/22 06:10 Sodium 139 Potassium 3.5 D Chloride 110 H Carbon Dioxide 24 BUN 12 Creatinine 0.78 Glucose 156 H Calcium 7.9 L Medications Administered Current Inpatient Medications Acetaminophen (Acetaminophen 325 Mg Tab) 650 mg PO Q4H PRN PRN Reason: Pain or Fever Stop: 12/02/22 09:57 Last Admin: 11/03/22 06:31 Dose: 650 mg Allopurinol (Allopurinol 300 Mg Tab) 300 mg PO DAILY ABDIEL Stop: 12/02/22 09:57 Last Admin: 11/03/22 08:18 Dose: Not Given Atenolol (Atenolol 50 Mg Tablet) 50 mg PO DAILY [facility] Stop: 12/02/22 09:57 Last Admin: 11/03/22 08:18 Dose: Not Given Atorvastatin Calcium (Atorvastatin 40 Mg Tab) 40 mg PO HS [facility] Stop: 12/02/22 20:59 Last Admin: 11/02/22 21:31 Dose: 40 mg Dextrose (Dextrose 50% 50 Ml Syringe) 25 - 50 ml IV UD PRN; Protocol PRN Reason: Hypoglycemia Protocol Stop: 12/02/22 09:57 Glucagon (Glucagon For Inj 1 Mg Vial) 1 mg SQ UD PRN; Protocol PRN Reason: Hypoglycemia Protocol Stop: 12/02/22 09:57 Glucose (Glucose 40% Gel 15 Gm Tube) 15 - 30 gm PO UD PRN; Protocol PRN Reason: Hypoglycemia Protocol Stop: 12/02/22 09:57 Glucose (Glucose 10 Tab/Tube) 4 - 8 tab PO UD PRN; Protocol PRN Reason: Hypoglycemia Treatment Stop: 12/02/22 09:57 Sodium Chloride (Nss 1000ml) 1,000 mls @ 125 mls/hr IV .Q8H [facility] Stop: 12/02/22 09:57 Last Admin: 11/03/22 08:10 Dose: 125 mls/hr Piperacillin Sod/Tazobactam (Sod 3.375 gm/ Dextrose) 115 mls @ 28.75 mls/hr IV Q8H [facility]; Protocol Stop: 11/12/22 09:59 Last Admin: 11/03/22 10:22 Dose: Not Given Insulin Aspart (Insulin Aspart Per Unit) 0 units SC ACHS [facility] Stop: 12/03/22 14:29 Last Admin: 11/03/22 14:53 Dose: 6 units Miscellaneous (Carbohydrates For Hypoglycemia ) 15 - 30 gm PO UD PRN PRN Reason: Hypoglycemia Protocol Stop: 12/02/22 09:57 Miscellaneous Information (Pharmacy Glycemic Mgmt Consult) 1 each N/A UD PRN PRN Reason: Consult Stop: 12/02/22 09:57 Nitroglycerin (Nitroglycerin Sl 0.4 Mg/Tab Tab) 0.4 mg SL UD PRN PRN Reason: Chest Pain Stop: 12/02/22 09:57 Nortriptyline HCl (Nortriptyline Hcl 25 Mg Cap) 25 mg PO HS ABDIEL Stop: 12/02/22 20:59 Last Admin: 11/02/22 21:30 Dose: 25 mg Pantoprazole Sodium (Pantoprazole 40 Mg Tab) 40 mg PO BID [facility] Stop: 12/03/22 20:59 Sucralfate (Sucralfate 1 Gm Tab) 1 gm PO QID [facility] Stop: 12/03/22 16:59
--- NOTE | 2022-11-03 15:03 | Anesthesiology Progress Note ---
Date of Service November 03, 2022 Anesthesia Post Procedure Vital Signs Vital Signs: Temp Pulse Pulse Resp BP Pulse Ox O2 Del Method 11/03/22 12:39 97.9 F 76 18 168/88 H 96 Room Air 11/03/22 11:58 72 16 140/73 99 Room Air 11/03/22 11:44 77 16 131/71 99 Room Air 11/03/22 11:29 76 16 115/63 99 Room Air 11/03/22 11:13 64 11/03/22 10:41 97.0 F L 79 16 122/72 99 Room Air 11/02/22 22:15 60 11/03/22 07:03 97.7 F 72 17 121/67 98 Room Air 11/02/22 20:05 Room Air 11/03/22 03:30 97.9 F 75 18 99/45 L 100 Room Air 11/02/22 22:49 97.7 F 65 20 92/44 L 99 Room Air 11/02/22 19:00 97.7 F 71 20 117/71 100 Room Air 11/02/22 16:52 72 11/02/22 16:47 98.1 F 81 17 135/77 100 Room Air 11/02/22 16:03 79 20 116/69 98 Room Air Pain Intensity Bilateral Back: Pain Intensity: 0 Transfer of Care Handoff Completed per policy Notes Mental Status: alert / awake / arousable and participated in evaluation Patient Amnestic to Procedure: Yes Nausea / Vomiting: adequately controlled Pain: adequately controlled Airway Patency, RR, SpO2: stable & adequate BP & HR: stable & adequate Hydration State: stable & adequate Anesthetic Complications: no major complications apparent and Pt Satisfied with anesthetic care
[2022-11-03] MEDS: SUCRALFATE 1 GM TAB PO SCH ×2 (16:26→21:14)
[2022-11-03] MEDS: PANTOprazole 40 MG TAB PO SCH (21:14)
[2022-11-03] MEDS: NORTRIPTYLINE HCL 25 MG CAP PO SCH (21:14)
[2022-11-03] MEDS: ATORVASTATIN 40 MG TAB PO SCH (21:14)
--- NOTE | 2022-11-03 23:36 | Electrocardiogram Report ---
Test Reason : Blood Pressure : / mmHG Vent. Rate : 139 BPM Atrial Rate : 139 BPM P-R Int : 144 ms QRS Dur : 086 ms QT Int : 298 ms P-R-T Axes : 002 048 048 degrees QTc Int : 453 ms Sinus tachycardia Nonspecific ST abnormality Abnormal ECG When compared with ECG of 19-OCT-2022 16:22, Vent. rate has increased BY 78 BPM Confirmed by Bill Heart ([id number]) on 11/03/2022 11:36:36 PM Referred By: REFERRED SELF Confirmed By:Bill Heart
[2022-11-04] MEDS: PIPERACILLIN/TAZOBACTAM 3.375 GM in DEXTROSE 5% 100 ML IV SCH ×2 (02:07→09:55)
[2022-11-04 06:38] LABS: Basophils # (auto) 0.03 K/uL (0-0.2); Basophils % (auto) 0.5 %; Eosinophils # (auto) 0.32 K/uL (0-0.50); Eosinophils % (auto) 4.9 %; Hematocrit (blood only) 24.5 % (40.1-51.0); Hemoglobin 7.9 g/dl (14.0-18.0); Immature Granulocytes # (auto) 0.05 K/uL (0.00-0.02); Immature Granulocytes % (auto) 0.8 %; Lymphocytes # (auto) 1.73 K/uL (1.2-3.4); Lymphocytes % (auto) 26.3 %; Mean Corpuscular Hgb Conc 32.2 g/dL (32.0-36.0); Mean Corpuscular Volume 90.1 fL (80.0-100.0); Mean Platelet Volume 8.7 fL (9.4-12.4); Monocytes # (auto) 0.72 K/uL (0.24-0.82); Monocytes % (auto) 10.9 %; Neutrophils # (auto) 3.74 K/uL (1.4-6.5); Neutrophils % (auto) 56.6 %; Platelet Count 241 K/uL (130-400); RDW Coefficient of Variation 15.1 % (11.5-14.5); RDW Standard Deviation 49.4 fL (36.4-46.3); Red Blood Count 2.72 M/uL (4.63-6.08); White Blood Count 6.59 K/ul (4.8-10.8)
[2022-11-04 06:57] LABS: BUN Creatinine Ratio 7.3 (10-20); Calcium 7.7 mg/dl (8.5-10.1); Creatinine Clr Calc Pharmacy 107.9 ml/min; Est GFR (African American) 104.6 ml/min; Est GFR (Non-African American) 90.2 ml/min; Potassium 3.6 mmol/L (3.5-5.1)
[2022-11-04 07:12] LABS: Polychromasia 1+
--- NOTE | 2022-11-04 07:34 | Pharmacy Report ---
Pharmacy Glycemic Short Note 2 - Date of Service November 04, 2022 - Glycemic Short BSG Results (Last 24 hours): 11/03/22 11/03/22 11/03/22 06:34 14:42 16:46 Glucose POC Glucose 138 H 182 H 168 H 11/03/22 11/04/22 11/04/22 20:01 06:18 07:20 Glucose 119 H POC Glucose 129 H 136 H OUTPATIENT ANTIDIABETIC REGIMEN: * Glyxambi 10-5 mg, glipizide 2.5 mg, metformin 1000 mg BID, pioglitazone * A1c order pending ASSESSMENT: 11/04/22 * Patient's BSGs yesterday were 138-182 (post-prandial)-168-129 mg/dL. Patient received 24 units of insulin (15 units of basal and 9 units of bolus). * Continue regimen as yesterday as fasting today is 136 mg/dL. * Patient corrected appropriately after elevated BSG. 11/03/22 * Patient's BSGs yesterday were 585-779-121-158 mg/dL. Patient received 20 units of insulin * Fasting today is 138 mg/dl. Patient went to endoscopy today and did not return until 1400. * Patient ate lunch tray prior to lunch BSG so recommended just cover carbs for lunch around 1445. Lantus 15 units ordered as fasting was appropriate today. * Re-evaluate Lantus tomorrow. * Novolog currently weight-based stress of 2 which is appropriate. Background * Patient admitted with GI bleed, currently NPO with protonix drip ordered (dextrose), and zosyn for possible diverticulitis (dextrose) * BSG elevated on lab this morning, awaiting POC BSG * Will start with novolog parameters weight based stress of 2, add conservative basal scale as patient is NPO. PLAN FOR INPATIENT GLYCEMIC CONTROL: * Hold outpatient oral diabetes medications * Basal insulin * Lantus 15 units SQ daily with dinner * Bolus insulin * NovoLog per scale ACHS or Q6hrs while NPO * Goal Range: Low 120 mg/dL - High 160 mg/dL * Correction Factor: 25 mg/dL/unit * Nutritional / Prandial insulin per carb ratio of 1 unit per 8 grams CHO consumed
--- NOTE | 2022-11-04 07:51 | Hospitalist Progress Note ---
Date of Service November 04, 2022 Assessment & Plan (1) Lower GI bleed: Plan: Admitted with bright red rectal bleed and also melena Did not have any abdominal discomfort but noted to have acute diverticulitis on CAT scan Status post 2 units of blood transfusion Was on intravenous PPI Hemoglobin 7.9 today (8.4 yesterday) Pt reports having BM without any blood Will have colonoscopy as an outpatient in 8 weeks, surgical follow up after that - for diverticulitis Status post EGD-note from GI EGD completed with findings of antral gastritis and duodenal erosion with faint bleeding- clip placed with no further bleeding noted. Likely from recent nsaid use. Carafate 1 gram qid for 28 days and also PPI bid for 8 weeks. Ideally avoid nsaid's, if to remains on nsaid's he should definitely take the above medications. Treat the diverticulitis- outpatient colonoscopy in 8-12 weeks after repeat imaging. Surgical input has been obtained about ? sigmoid perforation with no plans for intervention. Advance diet as tolerated. (2) Acute blood loss anemia: Plan: Secondary to gastrointestinal bleeding Received 2 units of blood transfusion Hemoglobin 7.9 on 11/04 (8.4 as of 11/03/2022) No more blood in stool, current BP 129/68, pt is feeling well and would like to be discharged Pt is to follow up w/ PCP - Dr. 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 Appreciate surgery input and recommendation-for conservative management Has been on intravenous Zosyn Will continue antibiotic for about 14 days in total with transition to Augmentin Patient remained free from any symptoms (4) Hypertension: Plan: Blood pressure remains stable (5) Diabetes: Plan: Diabetic diet SSI (6) Dyslipidemia: Plan: Continue statin Plan DVT prophylaxis SCDs CODE STATUS Full Admission and Anticipated Discharge Date Admission Date: November 02, 2022 Subjective Patient seen in follow-up of GI bleed, anemia, diverticulitis Currently sitting up in a chair, in no acute distress He reports feeling well, and is inquiring about going home Denies any abdominal pain whatsoever Reports having bowel movement yesterday and today, without any blood Underwent EGD yesterday, which showed gastritis and duodenal erosion, status post clipping No fevers chills chest pain shortness of breath Review of Systems Review of Systems: All systems reviewed & are unremarkable except as noted in Subjective Physical Exam Physical Exam: Physical Exam: Sitting up in [place] r, in NAD Constitutional:L well developed, we ll nourished Eyes: PERRL, EOMI, conju nctivae normal, an icteric sclerae ENMT: external ear and n ose normal, oropha rynx normal Neck: supple Respiratory: no respiratory dis tress Auscultatio n: lungs clear to auscultation bilat erally Cardiovascular:L Rate/Rhythm: regul ar rate and regula r rhythm; not tach ycardic Heart Xena nds: normal S1 and normal S2; no mur mur Gastrointestinal ( Abdomen): Inspection/Auscult ation: normal cintia l sounds; abdomen not distended Per cussion/Palpation: abdomen soft; abd omen nontender Musculoskeletal: moves extremities Neurologic: moves all extremit ies, speech fluent Psychiatric: A+Ox3, euthymic af fect Lymphatic: no LE edema Results & Data Results & Data ([facility]) Vital Signs (Past 12 Hours) Vital Signs Temp Pulse Pulse Resp BP Pulse Ox O2 Del Method 11/04/22 06:36 36.5 C 81 20 129/68 100 Room Air 11/04/22 02:05 36.7 C 75 18 110/58 L 98 Room Air 11/04/22 00:27 79 11/03/22 22:48 36.6 C 78 18 107/57 L 99 Room Air Laboratory Results 11/04/22 11/04/22 11/04/22 Range/Units 07:20 06:18 06:18 WBC 6.59 (4.8-10.8) K/ul RBC 2.72 L (4.63-6.08) M/uL Hgb 7.9 L (14.0-18.0) g/dl Hct 24.5 L (40.1-51.0) % MCV 90.1 (80.0-100.0) fL MCH 29.0 (25.0-34.0) pg MCHC 32.2 (32.0-36.0) g/dL RDW Std Deviation 49.4 H (36.4-46.3) fL RDW Coeff of Maynor 15.1 H (11.5-14.5) % Plt Count 241 (130-400) K/uL MPV 8.7 L (9.4-12.4) fL Immature Gran % (Auto) 0.8 % Neut % (Auto) 56.6 % Lymph % (Auto) 26.3 % [place] % (Auto) 10.9 % Eos % (Auto) 4.9 % Baso % (Auto) 0.5 % Neut # (Auto) 3.74 (1.4-6.5) K/uL Lymph # (Auto) 1.73 (1.2-3.4) K/uL [place] # (Auto) 0.72 (0.24-0.82) K/uL Eos # (Auto) 0.32 (0-0.50) K/uL Baso # (Auto) 0.03 (0-0.2) K/uL Immature Gran # (Auto) 0.05 H (0.00-0.02) K/uL Polychromasia 1+ Sodium 142 (136-145) mmol/L Potassium 3.6 (3.5-5.1) mmol/L Chloride 112 H (98-107) mmol/L Carbon Dioxide 25 (21-32) mmol/L Anion Gap 5 (3-11) BUN 6 (6-23) mg/dl Creatinine 0.82 (0.6-1.4) mg/dl Est Cr Clr Drug Dosing 107.9 ml/min Est GFR ( Amer) 104.6 ml/min Est GFR (Non-Af Amer) 90.2 ml/min BUN/Creatinine Ratio 7.3 L (10-20) Glucose 119 H (70-99(Fasting)) mg/dl POC Glucose 136 H (70-99) mg/dl Calcium 7.7 L (8.5-10.1) mg/dl 11/03/22 11/03/22 11/03/22 Range/Units 20:01 16:46 14:42 WBC (4.8-10.8) K/ul RBC (4.63-6.08) M/uL Hgb (14.0-18.0) g/dl Hct (40.1-51.0) % MCV (80.0-100.0) fL MCH (25.0-34.0) pg MCHC (32.0-36.0) g/dL RDW Std Deviation (36.4-46.3) fL RDW Coeff of Maynor (11.5-14.5) % Plt Count (130-400) K/uL MPV (9.4-12.4) fL Immature Gran % (Auto) % Neut % (Auto) % Lymph % (Auto) % [place] % (Auto) % Eos % (Auto) % Baso % (Auto) % Neut # (Auto) (1.4-6.5) K/uL Lymph # (Auto) (1.2-3.4) K/uL [place] # (Auto) (0.24-0.82) K/uL Eos # (Auto) (0-0.50) K/uL Baso # (Auto) (0-0.2) K/uL Immature Gran # (Auto) (0.00-0.02) K/uL Polychromasia Sodium (136-145) mmol/L Potassium (3.5-5.1) mmol/L Chloride (98-107) mmol/L Carbon Dioxide (21-32) mmol/L Anion Gap (3-11) BUN (6-23) mg/dl Creatinine (0.6-1.4) mg/dl Est Cr Clr Drug Dosing ml/min Est GFR ( Amer) ml/min Est GFR (Non-Af Amer) ml/min BUN/Creatinine Ratio (10-20) Glucose (70-99(Fasting)) mg/dl POC Glucose 129 H 168 H 182 H (70-99) mg/dl Calcium (8.5-10.1) mg/dl 11/03/22 Range/Units 06:34 WBC (4.8-10.8) K/ul RBC (4.63-6.08) M/uL Hgb (14.0-18.0) g/dl Hct (40.1-51.0) % MCV (80.0-100.0) fL MCH (25.0-34.0) pg MCHC (32.0-36.0) g/dL RDW Std Deviation (36.4-46.3) fL RDW Coeff of Maynor (11.5-14.5) % Plt Count (130-400) K/uL MPV (9.4-12.4) fL Immature Gran % (Auto) % Neut % (Auto) % Lymph % (Auto) % [place] % (Auto) % Eos % (Auto) % Baso % (Auto) % Neut # (Auto) (1.4-6.5) K/uL Lymph # (Auto) (1.2-3.4) K/uL [place] # (Auto) (0.24-0.82) K/uL Eos # (Auto) (0-0.50) K/uL Baso # (Auto) (0-0.2) K/uL Immature Gran # (Auto) (0.00-0.02) K/uL Polychromasia Sodium (136-145) mmol/L Potassium (3.5-5.1) mmol/L Chloride (98-107) mmol/L Carbon Dioxide (21-32) mmol/L Anion Gap (3-11) BUN (6-23) mg/dl Creatinine (0.6-1.4) mg/dl Est Cr Clr Drug Dosing ml/min Est GFR ( Amer) ml/min Est GFR (Non-Af Amer) ml/min BUN/Creatinine Ratio (10-20) Glucose (70-99(Fasting)) mg/dl POC Glucose 138 H (70-99) mg/dl Calcium (8.5-10.1) mg/dl Medications Administered Current Inpatient Medications Acetaminophen (Acetaminophen 325 Mg Tab) 650 mg PO Q4H PRN PRN Reason: Pain or Fever Stop: 12/02/22 09:57 Last Admin: 11/03/22 06:31 Dose: 650 mg Allopurinol (Allopurinol 300 Mg Tab) 300 mg PO DAILY ABDIEL Stop: 12/02/22 09:57 Last Admin: 11/03/22 08:18 Dose: Not Given Atenolol (Atenolol 50 Mg Tablet) 50 mg PO DAILY ABDIEL Stop: 12/02/22 09:57 Last Admin: 11/03/22 08:18 Dose: Not Given Atorvastatin Calcium (Atorvastatin 40 Mg Tab) 40 mg PO HS [facility] Stop: 12/02/22 20:59 Last Admin: 11/03/22 21:14 Dose: 40 mg Dextrose (Dextrose 50% 50 Ml Syringe) 25 - 50 ml IV UD PRN; Protocol PRN Reason: Hypoglycemia Protocol Stop: 12/02/22 09:57 Glucagon (Glucagon For Inj 1 Mg Vial) 1 mg SQ UD PRN; Protocol PRN Reason: Hypoglycemia Protocol Stop: 12/02/22 09:57 Glucose (Glucose 40% Gel 15 Gm Tube) 15 - 30 gm PO UD PRN; Protocol PRN Reason: Hypoglycemia Protocol Stop: 12/02/22 09:57 Glucose (Glucose 10 Tab/Tube) 4 - 8 tab PO UD PRN; Protocol PRN Reason: Hypoglycemia Treatment Stop: 12/02/22 09:57 Piperacillin Sod/Tazobactam (Sod 3.375 gm/ Dextrose) 115 mls @ 28.75 mls/hr IV Q8H [facility]; Protocol Stop: 11/12/22 09:59 Last Infusion: 11/04/22 05:55 Dose: Infused Insulin Aspart (Insulin Aspart Per Unit) 0 units SC ACHS [facility] Stop: 12/03/22 14:29 Last Admin: 11/03/22 21:27 Dose: Not Given Insulin Glargine (Lantus Per Unit Charge) 15 units SQ QDD [facility] Stop: 12/04/22 16:29 Miscellaneous (Carbohydrates For Hypoglycemia ) 15 - 30 gm PO UD PRN PRN Reason: Hypoglycemia Protocol Stop: 12/02/22 09:57 Miscellaneous Information (Pharmacy Glycemic Mgmt Consult) 1 each N/A UD PRN PRN Reason: Consult Stop: 12/02/22 09:57 Nitroglycerin (Nitroglycerin Sl 0.4 Mg/Tab Tab) 0.4 mg SL UD PRN PRN Reason: Chest Pain Stop: 12/02/22 09:57 Nortriptyline HCl (Nortriptyline Hcl 25 Mg Cap) 25 mg PO HS [facility] Stop: 12/02/22 20:59 Last Admin: 11/03/22 21:14 Dose: 25 mg Pantoprazole Sodium (Pantoprazole 40 Mg Tab) 40 mg PO BID [facility] Stop: 12/03/22 20:59 Last Admin: 11/03/22 21:14 Dose: 40 mg Sucralfate (Sucralfate 1 Gm Tab) 1 gm PO QID [facility] Stop: 12/03/22 16:59 Last Admin: 11/03/22 21:14 Dose: 1 gm
[2022-11-04] MEDS: INSULIN ASPART PER UNIT SC SCH ×2 (07:55→12:17)
[2022-11-04] MEDS: PANTOprazole 40 MG TAB PO SCH (07:56)
[2022-11-04] MEDS: ATENOLOL 50 MG TABLET PO SCH (07:56)
[2022-11-04] MEDS: SUCRALFATE 1 GM TAB PO SCH ×2 (07:57→13:07)
[2022-11-04] MEDS: allopurinoL 300 MG TAB PO SCH (07:57)
--- NOTE | 2022-11-04 10:07 | Surgery Progress Note ---
Date of Service November 04, 2022 Assessment & Plan (1) Diverticulitis: Plan: Patient is feeling well Labs stable Advance diet per GI Plan for outpatient Augmentin, can f/u with surgery after colonoscopy (>6wks from now) Admission and Anticipated Discharge Date Admission Date: November 02, 2022 Supervising Physician Co-Signing Physician Notes Patient seen and examined, labs reviewed, endoscopy from yesterday reviewed, agree with above. 71-year-old male admitted with GI bleed as well as findings of diverticulitis. He has not had any blood in his stool over the past 24 to 48 hours. His hemoglobin has trended down but this is likely from the initial rapid bleed. His endoscopy yesterday showed an ulcer likely secondary to NSAID use. On exam he is afebrile with stable vitals. His abdomen is soft, nontender, nondistended. H&H slightly down from admission but stable overall. His symptoms sound like they were more likely related to his ulcer and upper GI bleed rather than to diverticulitis. He can stay on antibiotics. Recommend outpatient colonoscopy. If there is still concern of coloenteric fistula in the future, would recommend a contrasted CT scan. From general surgery standpoint, may advance to a low fiber diet as tolerated. Surgery will sign off, call with questions or concerns Subjective feels good, tolerating full liquids, BMs after procedure dark brown, no blood Physical Exam Gastrointestinal (Abdomen): Inspection/Auscultation: abdomen not distended Percussion/Palpation: abdomen soft; abdomen nontender Results & Data ([facility]) Vital Signs (Past 12 Hours) Vital Signs Temp Pulse Pulse Resp BP Pulse Ox O2 Del Method 11/04/22 08:00 74 11/04/22 06:36 36.5 C 81 20 129/68 100 Room Air 11/04/22 02:05 36.7 C 75 18 110/58 L 98 Room Air 11/04/22 00:27 79 11/03/22 22:48 36.6 C 78 18 107/57 L 99 Room Air PG Care Time/CCT Total # of Minutes Spent Total Time Spent with Patient: Total time spent is greater than 50% in coordination of care (as documented) at patient's floor/unit and/or counseling patient: Coding Level of Care Code 41735 Subseq Hosp Care Lvl 1 Diagnoses Diverticulitis K57.92
--- NOTE | 2022-11-04 11:36 | Discharge Summary ---
Date of Service November 04, 2022 Admission HPI Per Admitting Provider This is a 71-year-old male with past medical history significant for type 2 diabetes, diabetic polyneuropathy, hyperlipidemia, hypertension, gout presents with blood per rectum since last evening at 6:00 p.m. The patient noticed first black stools then he noticed a lot of blood in the stools, multiple episodes and came to ER.When he came in, he was tachycardic, sinus tachycardia and his hemoglobin was 9.9, which was around 11 on 10/22/2022. Patient says he had back surgery recently, on 10/20/2022, after that he was constipated for a couple of weeks, after that bowels were moving regularly. Yesterday while he was ambulating with a walker, , after walking few steps he was feeling weak and because he was frustrated with that, he was getting hyperventilated and sob then he sat on the bed and later when he went to bathroom, he started noticing first black stools then blood in the stools; several episodes that is the reason he came here. He denies any incontinence. No abdominal pain. No nausea or vom iting. No chest pain, no shortness of breath, no cough, no fevers. He has some runny nose since winter, hard of hearing, no sore throat, no headache. Vision is okay. The patient is tachycardic in the ER. When he came his blood pressure was 120/69, currently 92/63. Received fluid, he has already received 1 bag of PRBC, getting second bag of PRBC in the ER. Admission Exam Per Admitting Provider GENERAL: The patient is of moderate build, not in acute distress. VITAL SIGNS: Temperature 37.1, pulse 112, respirations 16, blood pressure 92/63, oxygen 99% on room air. HEENT: Pupils equal, round and reactive to light. Oral mucosa moist. NECK: No JVD, no neck masses. CARDIOVASCULAR: S1 and S2 heard, tachycardia. No murmurs. RESPIRATORY SYSTEM: Normal AP diameter. No accessory muscle use. No wheezing, no crackles. ABDOMEN: Soft, bowel sounds present, nontender, no distention. CENTRAL NERVOUS SYSTEM: Alert and oriented. No facial droop, speech clear, insight ok. Moves extremities. power 5/5 in lower extremities, sensation intact. EXTREMITIES: No edema, no erythema. Principal Diagnosis GI bleed, gastritis and duodenal erosion Diverticulitis Anemia Discharge Exam Physical Exam: Sitting up in chair, in NAD Constitutional: well developed, well nourished Eyes: PERRL, EOMI, conjunctivae normal, anicteric sclerae ENMT: external ear and nose normal, oropharynx normal Neck: supple Respiratory: no respiratory distress Auscultation: lungs clear to auscultation bilaterally Cardiovascular: Rate/Rhythm: regular rate and regular rhythm; not tachycardic Heart Sounds: normal S1 and normal S2; no murmur Gastrointestinal (Abdomen): Inspection/Auscultation: normal bowel sounds; abdomen not distended Percussion/Palpation: abdomen soft; abdomen nontender Musculoskeletal: moves extremities Neurologic: moves all extremities, speech fluent Psychiatric: A+Ox3, euthymic affect Lymphatic: no LE edema Discharge Data Allergies Allergy/AdvReac Type Severity Reaction Status Date / Time No Known Allergies Allergy Verified 11/02/22 01:35 Consultations 11/02/22 04:55 ED Decision to Admit Stat 11/02/22 09:58 Consult Gastroenterology Routine 11/02/22 12:39 Consult General Surgery Routine Procedures Performed Operation Date: 11/03/22 16:00 Actual Procedures p EGD Hemostasis - Maria E Babin MD Ordered Studies 11/02/22 01:32 CT abd pelvis IV con only Urgent FINDINGS: Please note that the chest CT will be reported separately. No pneumatosis or portal venous gas is present. Gallstone within the gallbladder is noted. There is no evidence for acute cholecystitis. No hepatic lesions are present. There is no biliary or pancreatic ductal dilatation. Spleen, adrenal glands and pancreas are unremarkable. There is a 2.8 cm right renal cyst. There is no hydronephrosis. There are bilateral renal parapelvic cysts. No lymphadenopathy is present. Colonic diverticulosis is noted. There is a large diverticulum of the proximal sigmoid colon that measures 4 x 2.5 cm. Wall thickening of the diverticulum is noted with adjacent inflammation. This represents acute diverticulitis. There are a few locules of extraluminal gas consistent with contained perforation. 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 There is no fluid collection to suggest an abscess. No additional sites of inflammation identified on this examination. Major vasculature is patent. Postoperative findings within the spine consistent with L4-L5 discectomy, posterior decompression and bilateral pedicle screw fusion are noted. IMPRESSION: 1. Extensive colonic diverticulosis. Large inflamed diverticulum of the sigmoid colon consistent with acute diverticulitis. No abscess. 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 This finding will be called/faxed to ordering provider at time of dictation. 2. No bowel obstruction. 3. Cholelithiasis. 11/02/22 02:06 CT angio chest PE protocol Urgent FINDINGS: No acute fractures identified within the chest. No pneumothorax. The central airways are patent. A 3 mm nodule within the lingula on image 146. No focal lung consolidations to suggest a pneumonia. No evidence for pulmonary edema. Old, healed right anterior rib fractures. The abdominal structures will be reported on the same day abdomen and pelvis CT. Cholelithiasis is noted. Normal esophagus. No mediastinal or hilar lymphadenopathy. The heart is normal in size. Trace anterior pericardial fluid is noted. No pleural effusions. The ascending thoracic aorta measures up to 4 cm in diameter. No evidence for an aortic dissection. No filling defects within the pulmonary arteries to suggest a pulmonary embolus. 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 IMPRESSION: 1. No evidence for a pulmonary embolus. 2. Mild aneurysmal dilatation of the ascending thoracic aorta measuring up to 4 cm in diameter. No evidence for an aortic dissection. 3. A 3 mm lingular pulmonary nodule. 4. Cholelithiasis. Hospital Course (1) Lower GI bleed: Admitted with bright red rectal bleed and also melena Did not have any abdominal discomfort but noted to have acute diverticulitis on CAT scan Status post 2 units of blood transfusion Was on intravenous PPI Hemoglobin 7.9 today (8.4 yesterday) Pt reports having BM without any blood Will have colonoscopy as an outpatient in 8 weeks, surgical follow up after that - for diverticulitis Status post EGD-note from GI EGD completed with findings of antral gastritis and duodenal erosion with faint bleeding- clip placed with no further bleeding noted. Likely from recent nsaid use. Carafate 1 gram qid for 28 days and also PPI bid for 8 weeks. Ideally avoid nsaid's, if to remains on nsaid's he should definitely take the above medications. Treat the diverticulitis- outpatient colonoscopy in 8-12 weeks after repeat imaging. Surgical input has been obtained about ? sigmoid perforation with no plans for intervention. Advance diet as tolerated. (2) Acute blood loss anemia: Secondary to gastrointestinal bleeding Received 2 units of blood transfusion Hemoglobin 7.9 on 11/04 (8.4 as of 11/03/2022) No more blood in stool, current BP 129/68, pt is feeling well and would like to be discharged Pt is to follow up w/ PCP - Dr. 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 Appreciate surgery input and recommendation-for conservative management Has been on intravenous Zosyn Will continue antibiotic for about 14 days in total with transition to Augmentin Patient remained free from any symptoms (4) Hypertension: Blood pressure remains stable (5) Diabetes: Diabetic diet SSI (6) Dyslipidemia: Continue statin Total Time Total Time Spent Total Time Spent (In Minutes): 40 Discharge Plan Discharge Items Patient Disposition: Home - Self-Care Reason For Visit: MELENA AND BRIGHT BLOOD PER RECTUM Discharge Diagnosis: GI bleed, gastritis and duodenal erosion Diverticulitis Anemia Activity: Per Instructions section Non-emergency contact: Primary Care Provider, Surgeon and Nuclear Medicine Chief Technologist Call non-emergency contact if: you have any medication questions and your symptoms worsen Follow-up/Referrals: Beni Reinoso MD [Primary Care Provider] - (Date & Time 11/11/2022 10:20 AM Provider Beni Reinoso III, MD Department [facility] ) Diet: Low Fiber and Low Fat Addtl Attending Provider Instructions: Follow-up with your primary care doctor, the appointment was scheduled for you for November 11. Take pantoprazole twice a day for 8 weeks, and take Carafate 4 times a day for 28 days. Finish antibiotic treatment with Augmentin, as prescribed. It is recommended that you have a colonoscopy in about 6 to 8 weeks. You should then follow-up with general surgery as well. Avoid NSAIDs such as Advil, Motrin, ibuprofen. For pain, you can take Tylenol. For next 2 to 3 days, recommend not to take losartan and monitor your blood pressure at home. Discuss further with your primary care doctor about when it is appropriate to restart this medication. For next 2 to 3 days, also recommended not to take aspirin. Discuss further with your primary care doctor about when it is appropriate to restart this medication. Pending Studies at Discharge: No Stand-Alone Forms: My [facility], Smoking Cessation Medications and DC Order Prescriptions: New pantoprazole 40 mg Tablet,Delayed Release (Dr/Ec) 40 mg PO BID 30 Days Qty: 60 0RF sucralfate 1 gram Tablet 1 g PO QID 28 Days Qty: 112 0RF amoxicillin-pot clavulanate 875-125 mg tablet 1 tab PO BID 13 Days Qty: 26 0RF Continued oxycodone 5 mg tablet 5 mg PO Q4H PRN (Reason: pain) Qty: 15 0RF atorvastatin 40 mg tablet 40 mg PO HS pioglitazone 45 mg tablet 45 mg PO DAILY aspirin 81 mg Tablet,Delayed Release (Dr/Ec) 81 mg PO HS glipizide 2.5 mg tablet extended release 24hr 2.5 mg PO DAILY metformin 1,000 mg tablet 1,000 mg PO BID allopurinol 300 mg tablet 300 mg PO DAILY losartan 100 mg tablet 100 mg PO HS atenolol 50 mg tablet 50 mg PO DAILY Glyxambi 10-5 mg tablet 1 tab PO DAILY nortriptyline 25 mg Capsule 25 mg PO HS diazepam [Valium] 5 mg tablet 5 mg PO BID PRN (Reason: sedation) Qty: 11 0RF Discharge Orders: Discharge Order (Routine); Ordered 11/04/22 Ordered By: Manuelito Islas Admission Data Admit Date/Time: 11/02/22 06:19 Attending Provider: Manuelito Islas Admit Provider: Matty Weir Primary Care Provider: Beni Reinoso Other Providers: Matty Weir ; Yoly Jaramillo ; Sin Whitaker ; Gina Boucher ; Mariluz Kyle ; Christine Ascencio ; Zora Lomeli ; Nikko Smith ; Les Snyder ; Mona Malloy ; Rober Huizar ; Pari Bradley ; Yamile Puckett ; Trish Pineda ; Maria E Babin ; Mo Melendez ; Cheikh Ambrocio ; Alex Lozada ; Ashleigh Israel ; Bruna Olivarez Jr ; Mayo Juares ; Bipin Grullon ; Beverley Coulter ; Xiao Malloy ; Jose Sorensen ; Gordo Bowles ; Lauren Nichols ; Mariluz Azar ; Hernando More Jr ; Joesph Zhao ; Hong Mendoza ; Maria E Ramirez ; Zack Nix Other Interventions: Discharge Summary Assessment (RN) Last Done: 11/04/22 11:12
[2022-11-04] MEDS ORDERED: LANTUS PER UNIT CHARGE SQ SCH (16:30)
== END 2022-11-04 14:33 | disposition home or self-care (01) | DRG 378 ==
LOC: ED 01:07 → SUATTDRO 06:19 → EDINP 06:19 → 2S 10:02